=== PATIENT | male | born 1945 | race Caucasian/White ===

== ENCOUNTER 2016-09-14 03:05 | Inpatient (IN) | payer MEDICARE, OTHER ==
[~2016-09-14] VITALS: Ht 160 cm; Wt 69.9 kg
[~2016-09-14 03:05] MED LIST: AMLO5TAB4 PO; ASPI1CPM PO; ASPI325T4 PO; ATOR40TA PO; CANA100T PO; CARV25TA PO; CYCL10TA2 PO; DICY10CA53 PO; EZET10TA3 PO; FURO-69 PO; INSU100C4 SQ; INSU100V8 SQ; LIDO1ADH10 TP; LOSA100T2 PO; MAGN30TA PO; MECL12.5 PO; NITR0.4T6 SL; PANT40TA3 PO; POTA10CA PO; UBID200C4 PO
[2016-09-14] MEDS ORDERED: NITROGLYCERIN SUBLINGUAL 0.4 MG BOTTLE OF 25. SL ONE (03:27)
[2016-09-14] MEDS ORDERED: MORPHINE SULFATE 2 MG/ML DISP.SYRIN. ONE (03:28)
[2016-09-14] MEDS ORDERED: NITROGLYCERIN SUBLINGUAL 0.4 MG BOTTLE OF 25. SL PRN (03:30)
[2016-09-14] MEDS: MORPHINE SULFATE 2 MG/ML DISP.SYRIN. IV PRN ×3 (03:34→13:05)
[2016-09-14 03:36] LABS: BASO # 0.1 x10^3/uL (0.0-0.2); BASO % 1 % (0-3); EOS % 0 % (0-3); HEMATOCRIT 39.7 % (39.0-53.0); LYMPH # 0.3 x10^3/uL (1.0-4.8); LYMPH % 2 % (24-48); MEAN CORPUSCULAR HEMOGLOBIN 31 pg (25-35); MEAN CORPUSCULAR HGB CONC 33 g/dL (31-37); MEAN CORPUSCULAR VOLUME 96 fL (79-100); MONO % 3 % (0-9); NEUT % 94 % (31-73); PLATELET COUNT 265 x10^3/uL (140-400); RED BLOOD COUNT 4.14 x10^6/uL (4.30-5.70); RED CELL DISTRIBUTION WIDTH 13.2 % (11.5-14.5); WHITE BLOOD COUNT 13.6 x10^3/uL (4.0-11.0)
[2016-09-14 03:51] LABS: CALCIUM 9.6 mg/dL (8.5-10.1); CREATININE 1.5 mg/dL (0.7-1.3); GFR 46.1; POTASSIUM 4.1 mmol/L (3.5-5.1)
[2016-09-14 03:57] LABS: ALBUMIN 3.7 g/dL (3.4-5.0); DIRECT BILIRUBIN 0.1 mg/dL (0.0-0.2); TOTAL BILIRUBIN 0.4 mg/dL (0.2-1.0); TOTAL PROTEIN 7.7 g/dL (6.4-8.2)
[2016-09-14] MEDS ORDERED: ASPIRIN 81 MG TAB.CHEW PO ONE (04:00)
[2016-09-14] MEDS ORDERED: IV NORMAL SALINE 1000ML BAG 1,000 ML IV SCH (05:01)
[2016-09-14] MEDS ORDERED: ONDANSETRON PF 4 MG/2 ML VIAL. IV PRN (05:15)
[2016-09-14 05:45] VITALS: BP 144/62
--- NOTE | 2016-09-14 05:53 | RAD ---
PROCEDURE Right upper quadrant ultrasound HISTORY 71-year-old male with pancreatitis, evaluate gallbladder. TECHNIQUE Transverse and longitudinal sonography of the right upper quadrant is performed. COMPARISON None FINDINGS The pancreas is mostly obscured by overlying bowel gas. IVC appears patent. The liver demonstrates increased echogenicity. Liver measures 18.1 cm. Main portal vein demonstrates normal directional flow. The gallbladder wall thickness measures 3-4 mm. Small calcified gallstones are visualized within the fundus. Gallbladder is mildly distended. No pericholecystic fluid is seen. Patient unable to reposition to the decubitus positioning. The common bile duct measures 6 mm in diameter. The right kidney measures 10.6 x 4.7 x 4.3 cm, without evidence of hydronephrosis or definite nephrolithiasis. IMPRESSION 1. Cholelithiasis with borderline thickened gallbladder wall measuring 3-4 mm. No pericholecystic fluid is seen. Findings are equivocal for cholecystitis, correlate with clinical findings. 2. Hepatic steatosis. Electronically signed by: Nikkie Moreno (Sep 14, 2016 05:51:30)
--- NOTE | 2016-09-14 05:59 | PHYS DOC ---
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 The pain is sharp radiating to the back burning and moderate to severe. No alleviating factors present. He comes to us by paramedics today. He denies fevers chills or blood in his stools. Review of Systems Review of Systems ROS negative for fevers chills. He denies headache. Positive for chest pain and abdominal pain. All other review of systems is negative unless otherwise noted in history of present illness. Current Medications Current Medications Current Medications Medications (Trade) Dose Ordered Sig/Sylwia Start Time Stop Time Status Last Admin Dose Admin Aspirin (Children'S Aspirin) 324 mg 1X ONCE 09/14/16 04:00 09/14/16 04:01 DC Morphine Sulfate 2 mg 2 mg STK-MED ONCE 09/14/16 03:28 09/14/16 03:29 DC Nitroglycerin (Nitrostat) 0.4 mg STK-MED ONCE 09/14/16 03:27 09/14/16 03:28 DC Sodium Chloride (Iv Sodium Chloride 0.9% 1000ml Bag) 1,000 ml @ 125 mls/hr Q8H 09/14/16 05:01 09/15/16 05:00 Allergies Allergies Allergies Coded Allergies Type Severity Reaction Last Updated Verified Penicillins Allergy Intermediate 04/12/14 No fenofibrate Allergy Intermediate 04/12/14 No niacin Allergy Intermediate 04/12/14 No simvastatin Allergy Intermediate 04/12/14 No Physical Exam Physical Exam Constitutional: Well developed, well nourished, no acute distress, non-toxic appearance. HENT: Normocephalic, atraumatic, bilateral external ears normal, oropharynx moist, no oral exudates, nose normal. [] Eyes: PERRLA, EOMI, conjunctiva normal, no discharge. Neck: Normal range of motion, no tenderness, supple, no stridor. [] Cardiovascular:Heart rate regular rhythm, no murmur [] Lungs & Thorax: Bilateral breath sounds clear to auscultation Abdomen: Soft nontender abdomen without rebound tenderness or guarding present. Negative McBurneys point. Negative Patel sign. No ecchymosis present. Skin: Warm, dry, no erythema, no rash. Back: No tenderness, no CVA tenderness. [] Extremities: No tenderness, no cyanosis, no clubbing, ROM intact, no edema. Neurologic: Alert and oriented X 3, normal motor function, normal sensory function, no focal deficits noted. [] Psychologic: Affect normal, judgement normal, mood normal. Current Patient Data Vital Signs Vital Signs Date Time Temp Pulse Resp B/P Pulse Ox O2 Delivery O2 Flow Rate FiO2 09/14/16 04:40 53 16 140/55 99 09/14/16 03:34 Room Air 09/14/16 03:10 97.5 97.5 Lab Values Laboratory Tests Test 09/14/16 03:27 White Blood Count 13.6x10^3/uL (4.0-11.0) #H Red Blood Count 4.14x10^6/uL (4.30-5.70) L Hemoglobin 13.0g/dL (13.0-17.5) Hematocrit 39.7% (39.0-53.0) Mean Corpuscular Volume 96fL (79-100) Mean Corpuscular Hemoglobin 31pg (25-35) Mean Corpuscular Hemoglobin Concent 33g/dL (31-37) Red Cell Distribution Width 13.2% (11.5-14.5) Platelet Count 265x10^3/uL (140-400) Neutrophils (%) (Auto) 94% (31-73) H Lymphocytes (%) (Auto) 2% (24-48) L Monocytes (%) (Auto) 3% (0-9) Eosinophils (%) (Auto) 0% (0-3) Basophils (%) (Auto) 1% (0-3) Neutrophils # (Auto) 12.8x10^3uL (1.8-7.7) H Lymphocytes # (Auto) 0.3x10^3/uL (1.0-4.8) L Monocytes # (Auto) 0.4x10^3/uL (0.0-1.1) Eosinophils # (Auto) 0.0x10^3/uL (0.0-0.7) Basophils # (Auto) 0.1x10^3/uL (0.0-0.2) Platelet Estimate Pending Sodium Level 135mmol/L (136-145) L Potassium Level 4.1mmol/L (3.5-5.1) Chloride Level 98mmol/L (98-107) Carbon Dioxide Level 31mmol/L (21-32) Anion Gap 6 (6-14) Blood Urea Nitrogen 26mg/dL (8-26) Creatinine 1.5mg/dL (0.7-1.3) H Estimated GFR (Cockcroft-Gault) 46.1 Glucose Level 245mg/dL (70-99) H Calcium Level 9.6mg/dL (8.5-10.1) Total Bilirubin 0.4mg/dL (0.2-1.0) Direct Bilirubin 0.1mg/dL (0.0-0.2) Aspartate Amino Transferase (AST) 14U/L (15-37) L Alanine Aminotransferase (ALT) 21U/L (16-63) Alkaline Phosphatase 93U/L (46-116) Troponin I Quantitative < 0.017ng/mL (0.000-0.055) QB-Kfx-Z-Type Natriuretic Peptide 118pg/mL (0-124) Total Protein 7.7g/dL (6.4-8.2) Albumin 3.7g/dL (3.4-5.0) Lipase 1005U/L (73-393) H Laboratory Tests 09/14/16 03:27 Laboratory Tests 09/14/16 03:27 EKG EKG Patient has a paced regular rhytym with a regular rate. [place] is leftward. Intervals show prolonged QRS consistent with paced rhythm. ST segments show repolarization abnormality consistent with paced rhythm. Radiology/Procedures Radiology/Procedures Chest x-ray shows cardiomegaly. No acute or obvious infiltrate or pneumothorax present. Course & Med Decision Making Course & Med Decision Making Pertinent Labs and Imaging studies reviewed. (See chart for details) 71-year-old male presenting the emergency department with chest pain/epigastric abdominal pain. Vital signs afebrile. Normal heart rate. Saturating well with a normal blood pressure. EKG showed paced rhythm. Physical exam showed a nontender abdomen. Chest x-ray unremarkable. CBC showed mild leukocytosis. Chemistry panel showed hyperglycemia with an elevated lipase at 1000. The patient was given IV fluids and placed nothing by mouth and admitted for acute pancreatitis. Dragon Disclaimer Dragon Disclaimer This electronic medical record was generated, in whole or in part, using a voice recognition dictation system. Departure Departure Impression: Primary Impression: Pancreatitis Disposition: ADMITTED INPATIENT Admitting Physician: Jaz Mao Condition: STABLE Referrals: JAZ MAO MD (PCP) SHAWN LUCERO MD Sep 14, 2016 05:59
[2016-09-14] MEDS ORDERED: DONE10TA7 PO (06:35)
[2016-09-14] MEDS ORDERED: OMEG1CAP6 PO (06:35)
[2016-09-14] MEDS ORDERED: VITA1TAB31 PO (06:35)
--- NOTE | 2016-09-14 06:58 | ACF ---
Admission Forms Criteria PANCREATITIS Clinical Indications for Admission to Inpatient Care (Place 'X' for any and all applicable criteria): Admission is indicated for ANY ONE of the following (1)(2)(3)(4): [X]I. Acute pancreatitis[A] as indicated by 2 or more of the following: [X]a) Abdominal pain (eg, epigastric, left upper quadrant) [ ]b) Serum amylase or serum lipase greater than 3 times the upper limit of normal [ ]c) Characteristic findings from abdominal imaging (eg, pancreatic inflammation, pancreatic necrosis, peripancreatic fluid collection)[B] [ ]II. Pancreatitis (acute or chronic ) requiring inpatient care as indicated by 1 or more of the following : [ ]a) Inability to maintain oral hydration Hypoxemia [ ]b) Evidence of infection (eg, fever, peripancreatic abscess) [ ]c) Severe pain requiring acute inpatient management [ ]d) Hemodynamic instability [ ]e) Hypoxemia [ ]f) Acute renal failure [ ]g) Severe electrolyte abnormalities Extended stay beyond goal length of stay may be needed for (1)(11) [ ]a) Severe acute pancreatitis (10)(19) [ ]b) Persistent symptoms, ascites, or pleural effusion [ ]c) Abdominal compartment syndrome (10) [ ]d) Late complications [ ]e) Acute renal failure (27) [ ]f) Gallstones in gallbladder The original [employer] content created by [employer] has been revised. The portions of the content which have been revised are identified through the use of italic text or in bold,and [facility] has neither reviewed nor approved the modified material.All other unmodified content is copyright [employer]. Please see references footnoted in the original [employer] edition 2016 Admission Criteria Met?: Yes BARB MACHADO Sep 14, 2016 06:58
[2016-09-14 07:32] VITALS: BP 140/47
[2016-09-14 07:58] LABS: PLT ESTIMATE ADEQUATE (ADEQUATE)
--- NOTE | 2016-09-14 08:17 | RAD ---
EXAM: Chest, single view. HISTORY: Chest pain. COMPARISON: 09/07/2016. FINDINGS: A frontal view of the chest is obtained. There is no infiltrate, effusion or pneumothorax. The heart is normal in size. There are findings consistent with CABG. There is a cardiac pacemaker defibrillator in expected position. There are right apical surgical clips. IMPRESSION: No acute pulmonary finding.
[2016-09-14] MEDS ORDERED: INSU100I17 SQ (08:51)
[2016-09-14] MEDS ORDERED: CANA100T PO (08:51)
[2016-09-14] MEDS ORDERED: INSU100I13 SQ (08:51)
[2016-09-14] MEDS ORDERED: ATOR40TA59 PO (08:51)
[2016-09-14] MEDS ORDERED: DEXTROSE 50% 25 GM / 50ML DISP.SYRIN. IV PRN (09:00)
--- NOTE | 2016-09-14 09:10 | EKG ---
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
--- NOTE | 2016-09-14 09:21 | PDOC ---
PROGRESS NOTES Subjective Subjective Patient reports some diffuse abdominal pain persists. Not as severe as when he came to the ER. Objective Objective Vital Signs Date Time Temp Pulse Resp B/P Pulse Ox O2 Delivery O2 Flow Rate FiO2 09/14/16 08:35 16 Room Air 09/14/16 07:32 98.2 64 140/47 95 98.2 Physical Exam Abdomen: Normal bowel sounds, Soft, Other (mild diffuse TTP without guarding or rebound) Heart: Regular rate Extremities: No edema (on L LE) General: Alert, Oriented X3 (somewhat forgetful), No acute distress Lungs: Clear to auscultation Assessment Assessment Problems Medical Problems: (1) Pancreatitis Status: Acute Plan Plan of Care 1. Acute cholecystitis with pancreatitis - stable, afebrile. WBC's mildly elevated and Lipase elevated. Will continue NPO with IVF, consult General Surgery. Start Rocephin. 2. DM2 - SS insulin, resume home insulins when no longer NPO. 3. CHF with hx CAD - last Echo had EF of 55% with mild diastolic dysfunction. Appears stable at present, Troponin is normal. 4. HTN - continue home meds. 5. memory loss - continue home meds and supportive care. Comment Review of Relevant I have reviewed the following items harman (where applicable) has been applied. Labs Laboratory Tests Test 09/14/16 03:27 09/14/16 07:28 White Blood Count 13.6x10^3/uL (4.0-11.0) Red Blood Count 4.14x10^6/uL (4.30-5.70) Hemoglobin 13.0g/dL (13.0-17.5) Hematocrit 39.7% (39.0-53.0) Mean Corpuscular Volume 96fL (79-100) Mean Corpuscular Hemoglobin 31pg (25-35) Mean Corpuscular Hemoglobin Concent 33g/dL (31-37) Red Cell Distribution Width 13.2% (11.5-14.5) Platelet Count 265x10^3/uL (140-400) Neutrophils (%) (Auto) 94% (31-73) Lymphocytes (%) (Auto) 2% (24-48) Monocytes (%) (Auto) 3% (0-9) Eosinophils (%) (Auto) 0% (0-3) Basophils (%) (Auto) 1% (0-3) Neutrophils # (Auto) 12.8x10^3uL (1.8-7.7) Lymphocytes # (Auto) 0.3x10^3/uL (1.0-4.8) Monocytes # (Auto) 0.4x10^3/uL (0.0-1.1) Eosinophils # (Auto) 0.0x10^3/uL (0.0-0.7) Basophils # (Auto) 0.1x10^3/uL (0.0-0.2) Segmented Neutrophils % 81% (35-66) Band Neutrophils % 11% (0-9) Lymphocytes % 6% (24-48) Monocytes % 2% (0-10) Platelet Estimate Adequate (ADEQUATE) Sodium Level 135mmol/L (136-145) Potassium Level 4.1mmol/L (3.5-5.1) Chloride Level 98mmol/L (98-107) Carbon Dioxide Level 31mmol/L (21-32) Anion Gap 6 (6-14) Blood Urea Nitrogen 26mg/dL (8-26) Creatinine 1.5mg/dL (0.7-1.3) Estimated GFR (Cockcroft-Gault) 46.1 Glucose Level 245mg/dL (70-99) Calcium Level 9.6mg/dL (8.5-10.1) Total Bilirubin 0.4mg/dL (0.2-1.0) Direct Bilirubin 0.1mg/dL (0.0-0.2) Aspartate Amino Transf (AST/SGOT) 14U/L (15-37) Alanine Aminotransferase (ALT/SGPT) 21U/L (16-63) Alkaline Phosphatase 93U/L (46-116) Troponin I Quantitative < 0.017ng/mL (0.000-0.055) CT-Rrj-Q-Type Natriuretic Peptide 118pg/mL (0-124) Total Protein 7.7g/dL (6.4-8.2) Albumin 3.7g/dL (3.4-5.0) Lipase 1005U/L (73-393) Glucose (Fingerstick) 264mg/dL (70-99) Laboratory Tests Test 09/14/16 03:27 09/14/16 07:28 White Blood Count 13.6x10^3/uL (4.0-11.0) Red Blood Count 4.14x10^6/uL (4.30-5.70) Hemoglobin 13.0g/dL (13.0-17.5) Hematocrit 39.7% (39.0-53.0) Mean Corpuscular Volume 96fL (79-100) Mean Corpuscular Hemoglobin 31pg (25-35) Mean Corpuscular Hemoglobin Concent 33g/dL (31-37) Red Cell Distribution Width 13.2% (11.5-14.5) Platelet Count 265x10^3/uL (140-400) Neutrophils (%) (Auto) 94% (31-73) Lymphocytes (%) (Auto) 2% (24-48) Monocytes (%) (Auto) 3% (0-9) Eosinophils (%) (Auto) 0% (0-3) Basophils (%) (Auto) 1% (0-3) Neutrophils # (Auto) 12.8x10^3uL (1.8-7.7) Lymphocytes # (Auto) 0.3x10^3/uL (1.0-4.8) Monocytes # (Auto) 0.4x10^3/uL (0.0-1.1) Eosinophils # (Auto) 0.0x10^3/uL (0.0-0.7) Basophils # (Auto) 0.1x10^3/uL (0.0-0.2) Segmented Neutrophils % 81% (35-66) Band Neutrophils % 11% (0-9) Lymphocytes % 6% (24-48) Monocytes % 2% (0-10) Platelet Estimate Adequate (ADEQUATE) Sodium Level 135mmol/L (136-145) Potassium Level 4.1mmol/L (3.5-5.1) Chloride Level 98mmol/L (98-107) Carbon Dioxide Level 31mmol/L (21-32) Anion Gap 6 (6-14) Blood Urea Nitrogen 26mg/dL (8-26) Creatinine 1.5mg/dL (0.7-1.3) Estimated GFR (Cockcroft-Gault) 46.1 Glucose Level 245mg/dL (70-99) Calcium Level 9.6mg/dL (8.5-10.1) Total Bilirubin 0.4mg/dL (0.2-1.0) Direct Bilirubin 0.1mg/dL (0.0-0.2) Aspartate Amino Transf (AST/SGOT) 14U/L (15-37) Alanine Aminotransferase (ALT/SGPT) 21U/L (16-63) Alkaline Phosphatase 93U/L (46-116) Troponin I Quantitative < 0.017ng/mL (0.000-0.055) GX-Dkk-U-Type Natriuretic Peptide 118pg/mL (0-124) Total Protein 7.7g/dL (6.4-8.2) Albumin 3.7g/dL (3.4-5.0) Lipase 1005U/L (73-393) Glucose (Fingerstick) 264mg/dL (70-99) Medications Current Medications Aspirin (Children'S Aspirin) 324 mg 1X ONCE PO ; Start 09/14/16 at 04:00; Stop 09/14/16 at 04:01; Status DC Nitroglycerin (Nitrostat) 0.4 mg PRN Q5MIN PRN SL CHEST PAIN Last administered on 09/14/16 03:33; Start 09/14/16 at 03:30 Morphine Sulfate 2 mg PRN Q1HR PRN IV SEVERE PAIN Last administered on 08:35; Start 09/14/16 at 03:30; Stop 09/14/16 at 09:00; Status DC Nitroglycerin (Nitrostat) 0.4 mg STK-MED ONCE SL ; Start 09/14/16 at 03:27; Stop 09/14/16 at 03:28; Status DC Morphine Sulfate 2 mg STK-MED ONCE .ROUTE ; Start 09/14/16 at 03:28; Stop at 03:29; Status DC Ondansetron HCl (Zofran) 4 mg PRN Q8HRS PRN IV NAUSEA/VOMITING; Start 09/14/16 at 05:15; Stop 09/15/16 at 05:14 Morphine Sulfate 2 mg 2 mg PRN Q2HR PRN IV SEVERE PAIN; Start 09/14/16 at 05:15 ; Stop 09/15/16 at 05:14 Sodium Chloride (Iv Sodium Chloride 0.9% 1000ml Bag) 1,000 ml @ 125 mls/hr Q8H IV Last administered on 1/11/17at 05:01; Start 09/14/16 at 05:01; Stop at 09:15; Status DC Insulin Aspart (Novolog) 0-9 UNITS TIDWMEALS SQ ; Start 09/14/16 at 12:00 Dextrose 12.5 gm 12.5 gm PRN Q15MIN PRN IV SEE COMMENTS; Start 09/14/16 at 09: 00 Ceftriaxone Sodium 1 gm/ Sodium Chloride 50 ml @ 100 mls/hr Q24H IV ; Start 07/21 at 09:15; Status UNV Potassium Chloride/Sodium Chloride (KCl 20 Meq-0.45% Nacl) 1,000 ml @ 75 mls/ hr [id number] IV ; Start 09/14/16 at 09:15; Status UNV Active Scripts Active Invokana (Canagliflozin) 100 Mg Tablet 100 Mg PO DAILY 30 Days Atorvastatin Calcium 40 Mg Tablet 1 Tab PO DAILY Novolog Flexpen (Insulin Aspart) 100 Unit/1 Ml Insuln.pen 25 Unit SQ TIDAC Lantus Solostar (Insulin Glargine,Hum.rec.anlog) 100 Unit/1 Ml Insuln.pen 60 Unit SQ BID Bentyl (Dicyclomine Hcl) 10 Mg Capsule 10 Mg PO QID PRN Reported D3 + K2 Dots 1,000 Units Tab (Vitamin D3/Vitamin K2) 1 Each Tab.rapdis 1 Each PO DAILY Fish Oil 1,000 Mg Capsule ([place]-3 Fatty Acids/Fish Oil) 1 Each Capsule 1 Each PO BID Donepezil Hcl 10 Mg Tablet 1 Tab PO DAILY Coreg (Carvedilol) 25 Mg Tablet 1 Tab PO BID Aggrenox 25 Mg-200 Mg Capsule (Aspirin/Dipyridamole) 1 Each Cpmp.12hr 1 Cap PO BID Cozaar (Losartan Potassium) 100 Mg Tablet 1 Tab PO DAILY Lasix (Furosemide) 20 Mg Tablet 1 Tab PO DAILY Zetia (Ezetimibe) 10 Mg Tablet 1 Tab PO DAILY Norvasc (Amlodipine Besylate) 5 Mg Tablet 1 Tab PO DAILY Potassium Chloride 10 Meq Capsule.er 1 Cap PO DAILY Magnesium Gluconate 30 Mg Tablet 250 Mg PO Co Q-10 (Ubidecarenone) 200 Mg Capsule 200 Mg PO DAILY Vitals/I & O Vital Sign - Last 24 Hours 09/14/16 09/14/16 09/14/1617 03:10 03:30 03:33 03:34 Temp 97.5 97.5 Pulse 52 55 50 Resp 16 16 16 B/P 110/56 122/55 122/55 Pulse Ox 100 100 100 O2 Delivery Room Air Room Air 09/14/16 09/14/16 09/14/16 09/14/16 04:00 04:00 04:04 04:40 Pulse 50 56 53 Resp 16 16 16 B/P 112/49 110/46 140/55 Pulse Ox 97 97 96 99 O2 Delivery Room Air 09/14/16 09/14/16 09/14/16 09/14/16 05:45 07:32 07:40 08:35 Temp 97.8 98.2 97.8 98.2 Pulse 64 64 Resp 18 18 16 B/P 144/62 140/47 Pulse Ox 96 95 O2 Delivery Room Air Room Air Room Air Room Air FAIZAN RAY MD Sep 14, 2016 09:21
[2016-09-14] MEDS ORDERED: DICYCLOMINE HCL 10 MG CAPSULE PO PRN (09:30)
--- NOTE | 2016-09-14 10:12 | HP ---
ADMIT DATE: 09/14/2016 CHIEF COMPLAINT: Abdominal pain. HISTORY OF PRESENT ILLNESS: The patient is a 71-year-old male who presented to the Emergency Room with the above complaint. He had been experiencing intermittent lower abdominal pain for about 1 week. He was seen in the Emergency Room several days prior with a similar complaint. CAT scan of the abdomen and pelvis was done at that time, which showed some cholelithiasis and constipation, but was otherwise unremarkable and he was discharged home. He saw Dr. Vallejo in the office on 09/12/2016. His exam then was unremarkable and he was advised treatment for constipation. The patient returned to the Emergency Room on the night of admission reporting that the pain had worsened. Lab then showed a lipase elevated at 1000. An ultrasound was ordered and the patient was admitted for further treatment. PAST MEDICAL HISTORY: Diabetes mellitus type 2, insulin dependent, hypertension, coronary artery disease, CHF with diastolic dysfunction, peripheral vascular disease, memory loss, and hyperlipidemia. PAST SURGICAL HISTORY: Appendectomy, coronary artery bypass graft, right below the knee amputation, pacemaker/ICD placement in 2009. ALLERGIES: The patient is allergic to penicillins, fenofibrate, niacin and simvastatin. HOME MEDICATIONS: Lantus 60 units b.i.d., Zetia 10 mg daily, NovoLog 40 units t.i.d. a.c., Donepezil 10 mg daily, atorvastatin 40 mg daily, Coreg 25 mg b.i.d., Aggrenox 25/200 one b.i.d., Lasix 20 mg daily, amlodipine 5 mg daily, losartan 100 mg daily, potassium 10 mEq daily, Invokana 100 mg daily. FAMILY HISTORY: Noncontributory. SOCIAL HISTORY: The patient is . He lives with his brother. He has a long smoking history, but quit smoking in 1985. He does not drink alcohol to excess. REVIEW OF SYSTEMS: This is somewhat limited due to patient's memory loss. He denies fever or chills. He has had some chest or upper abdominal pain as well as his lower abdominal pain. He denies cough or shortness of air. He had some emesis several days ago, but none since. He has not had a bowel movement in 2 days and denies diarrhea. PHYSICAL EXAMINATION: GENERAL: The patient is alert and oriented x 3, but somewhat forgetful, resting comfortably in bed in no acute distress. HEENT: PERRL, EOMI, sclerae clear. Oropharynx: Mucous membranes moist. NECK: Supple, without lymphadenopathy. CHEST: Clear to auscultation. CARDIOVASCULAR: Regular rhythm without murmur. ABDOMEN: Soft, mild diffuse tenderness to palpation without guarding or rebound. Normoactive bowel sounds are present. There is no right upper quadrant tenderness to palpation. EXTREMITIES: The right lower extremity shows [id number] amputation, left lower extremity is without edema. ASSESSMENT AND PLAN: 1. Acute cholecystitis with pancreatitis. Abdominal ultrasound shows cholelithiasis with borderline gallbladder wall thickening. The patient is stable and afebrile. His white blood cell count is mildly elevated at over 13 and initial lipase was over 1000. We will continue the patient n.p.o. with IV fluid. We have consulted General Surgery to help with further treatment. He will be started on Rocephin for broad antibacterial coverage. 2. Diabetes mellitus type 2, use sliding scale insulin, resume home insulins when he is no longer n.p.o. 3. Congestive heart failure with history of coronary artery disease. The patient's last echocardiogram was 03/2016. It showed an ejection fraction of 55 % with mild diastolic dysfunction. This appears stable at this time. Troponin is normal and we will continue his home medications. 4. Hypertension. Hold home medications for today while the patient is n.p.o. Blood pressure is presently stable without medication. 5. Memory loss. Continue home medications and supportive care. FAIZAN RAY MD DR: DELFINA/brandyn JOB#: [id number] / [id number] CHRISTOPHER
[2016-09-14 10:38] VITALS: BP 124/52
[2016-09-14] MEDS: CEFTRIAXONE SODIUM 1 GM in IV NORMAL SALINE 50ML 50 ML IV SCH (12:48)
[2016-09-14] MEDS: LOSARTAN POTASSIUM 50 MG TABLET. PO SCH (12:53)
[2016-09-14] MEDS: FUROSEMIDE 20 MG TABLET PO SCH (12:53)
[2016-09-14] MEDS: DONEPEZIL HCL 10 MG TABLET. PO SCH (12:53)
[2016-09-14] MEDS: CARVEDILOL 12.5 MG TABLET PO SCH ×2 (12:53→18:15)
[2016-09-14] MEDS: AMLODIPINE BESYLATE 5 MG TABLET PO SCH (12:53)
[2016-09-14] MEDS: POTASSIUM CL 20MEQ-0.45% NACL 1,000 ML IV SCH ×2 (12:54→22:42)
[2016-09-14] MEDS: INSULIN ASPART 300 UNITS/3 ML INSULN.PEN SQ SCH ×2 (13:02→18:19)
[2016-09-14 14:36] VITALS: BP 140/58
[2016-09-14 19:05] VITALS: BP 125/56
--- NOTE | 2016-09-14 19:47 | PDOC ---
SURGICAL PROGRESS NOTE Subjective 71 yo M with gallstone pancreatitis agree with bowel rest and supportive care plan lap aurora with grams, once pancreatitis improved tentatively planned for 09/16 at 1300 R/B/A d/w pt and pt's family Thanks for consult! [id number] Vital Signs Vital Signs Date Time Temp Pulse Resp B/P Pulse Ox O2 Delivery O2 Flow Rate FiO2 09/14/16 18:15 76 140/58 09/14/16 14:36 100.2 18 91 Room Air 100.2 Labs Laboratory Tests Test 09/14/16 03:27 09/14/16 07:28 09/14/16 10:49 09/14/16 16:35 White Blood Count 13.6x10^3/uL (4.0-11.0) Red Blood Count 4.14x10^6/uL (4.30-5.70) Hemoglobin 13.0g/dL (13.0-17.5) Hematocrit 39.7% (39.0-53.0) Mean Corpuscular Volume 96fL (79-100) Mean Corpuscular Hemoglobin 31pg (25-35) Mean Corpuscular Hemoglobin Concent 33g/dL (31-37) Red Cell Distribution Width 13.2% (11.5-14.5) Platelet Count 265x10^3/uL (140-400) Neutrophils (%) (Auto) 94% (31-73) Lymphocytes (%) (Auto) 2% (24-48) Monocytes (%) (Auto) 3% (0-9) Eosinophils (%) (Auto) 0% (0-3) Basophils (%) (Auto) 1% (0-3) Neutrophils # (Auto) 12.8x10^3uL (1.8-7.7) Lymphocytes # (Auto) 0.3x10^3/uL (1.0-4.8) Monocytes # (Auto) 0.4x10^3/uL (0.0-1.1) Eosinophils # (Auto) 0.0x10^3/uL (0.0-0.7) Basophils # (Auto) 0.1x10^3/uL (0.0-0.2) Segmented Neutrophils % 81% (35-66) Band Neutrophils % 11% (0-9) Lymphocytes % 6% (24-48) Monocytes % 2% (0-10) Platelet Estimate Adequate (ADEQUATE) Sodium Level 135mmol/L (136-145) Potassium Level 4.1mmol/L (3.5-5.1) Chloride Level 98mmol/L (98-107) Carbon Dioxide Level 31mmol/L (21-32) Anion Gap 6 (6-14) Blood Urea Nitrogen 26mg/dL (8-26) Creatinine 1.5mg/dL (0.7-1.3) Estimated GFR (Cockcroft-Gault) 46.1 Glucose Level 245mg/dL (70-99) Calcium Level 9.6mg/dL (8.5-10.1) Total Bilirubin 0.4mg/dL (0.2-1.0) Direct Bilirubin 0.1mg/dL (0.0-0.2) Aspartate Amino Transf (AST/SGOT) 14U/L (15-37) Alanine Aminotransferase (ALT/SGPT) 21U/L (16-63) Alkaline Phosphatase 93U/L (46-116) Troponin I Quantitative < 0.017ng/mL (0.000-0.055) VH-Dkh-B-Type Natriuretic Peptide 118pg/mL (0-124) Total Protein 7.7g/dL (6.4-8.2) Albumin 3.7g/dL (3.4-5.0) Lipase 1005U/L (73-393) Glucose (Fingerstick) 264mg/dL (70-99) 258mg/dL (70-99) 206mg/dL (70-99) Laboratory Tests Test 09/14/16 03:27 09/14/16 07:28 09/14/16 10:49 09/14/16 16:35 White Blood Count 13.6x10^3/uL (4.0-11.0) Red Blood Count 4.14x10^6/uL (4.30-5.70) Hemoglobin 13.0g/dL (13.0-17.5) Hematocrit 39.7% (39.0-53.0) Mean Corpuscular Volume 96fL (79-100) Mean Corpuscular Hemoglobin 31pg (25-35) Mean Corpuscular Hemoglobin Concent 33g/dL (31-37) Red Cell Distribution Width 13.2% (11.5-14.5) Platelet Count 265x10^3/uL (140-400) Neutrophils (%) (Auto) 94% (31-73) Lymphocytes (%) (Auto) 2% (24-48) Monocytes (%) (Auto) 3% (0-9) Eosinophils (%) (Auto) 0% (0-3) Basophils (%) (Auto) 1% (0-3) Neutrophils # (Auto) 12.8x10^3uL (1.8-7.7) Lymphocytes # (Auto) 0.3x10^3/uL (1.0-4.8) Monocytes # (Auto) 0.4x10^3/uL (0.0-1.1) Eosinophils # (Auto) 0.0x10^3/uL (0.0-0.7) Basophils # (Auto) 0.1x10^3/uL (0.0-0.2) Segmented Neutrophils % 81% (35-66) Band Neutrophils % 11% (0-9) Lymphocytes % 6% (24-48) Monocytes % 2% (0-10) Platelet Estimate Adequate (ADEQUATE) Sodium Level 135mmol/L (136-145) Potassium Level 4.1mmol/L (3.5-5.1) Chloride Level 98mmol/L (98-107) Carbon Dioxide Level 31mmol/L (21-32) Anion Gap 6 (6-14) Blood Urea Nitrogen 26mg/dL (8-26) Creatinine 1.5mg/dL (0.7-1.3) Estimated GFR (Cockcroft-Gault) 46.1 Glucose Level 245mg/dL (70-99) Calcium Level 9.6mg/dL (8.5-10.1) Total Bilirubin 0.4mg/dL (0.2-1.0) Direct Bilirubin 0.1mg/dL (0.0-0.2) Aspartate Amino Transf (AST/SGOT) 14U/L (15-37) Alanine Aminotransferase (ALT/SGPT) 21U/L (16-63) Alkaline Phosphatase 93U/L (46-116) Troponin I Quantitative < 0.017ng/mL (0.000-0.055) DU-Bfw-Z-Type Natriuretic Peptide 118pg/mL (0-124) Total Protein 7.7g/dL (6.4-8.2) Albumin 3.7g/dL (3.4-5.0) Lipase 1005U/L (73-393) Glucose (Fingerstick) 264mg/dL (70-99) 258mg/dL (70-99) 206mg/dL (70-99) Problem List Problems Medical Problems: (1) Pancreatitis Status: Acute Problems: STEFAN TAYLOR MD Sep 14, 2016 19:47
[2016-09-14 23:05] VITALS: BP 124/53
[2016-09-15 03:05] VITALS: BP 127/50
[2016-09-15] MEDS: MORPHINE SULFATE 2 MG/ML DISP.SYRIN. IV PRN (04:04)
[2016-09-15 04:56] LABS: BASO % 0 % (0-3); EOS % 0 % (0-3); HEMATOCRIT 35.1 % (39.0-53.0); HEMOGLOBIN 11.6 g/dL (13.0-17.5); LYMPH # 0.3 x10^3/uL (1.0-4.8); LYMPH % 5 % (24-48); MEAN CORPUSCULAR HEMOGLOBIN 32 pg (25-35); MEAN CORPUSCULAR HGB CONC 33 g/dL (31-37); MEAN CORPUSCULAR VOLUME 96 fL (79-100); MONO % 5 % (0-9); NEUT % 90 % (31-73); PLATELET COUNT 188 x10^3/uL (140-400); RED BLOOD COUNT 3.66 x10^6/uL (4.30-5.70); RED CELL DISTRIBUTION WIDTH 13.7 % (11.5-14.5); WHITE BLOOD COUNT 5.5 x10^3/uL (4.0-11.0)
[2016-09-15 05:36] LABS: ALBUMIN 2.7 g/dL (3.4-5.0); ALBUMIN/GLOBULIN RATIO 0.8 (1.0-1.7); CALCIUM 7.8 mg/dL (8.5-10.1); CREATININE 1.3 mg/dL (0.7-1.3); GFR 54.4; POTASSIUM 3.9 mmol/L (3.5-5.1); TOTAL BILIRUBIN 0.3 mg/dL (0.2-1.0)
[2016-09-15 07:00] VITALS: BP 117/48
[2016-09-15] MEDS ORDERED: CEFAZOLIN 2GM PREMIX 50 ML IV ONE (08:45)
[2016-09-15] MEDS ORDERED: NON FORMULARY ITEM (Canagliflozin (Invokana) 100 MG) PO SCH (09:00)
--- NOTE | 2016-09-15 09:03 | PDOC ---
PROGRESS NOTES Subjective Subjective Patient without complaint, denies abdominal pain or nausea. Objective Objective Vital Signs Date Time Temp Pulse Resp B/P Pulse Ox O2 Delivery O2 Flow Rate FiO2 09/15/16 07:00 98.3 66 18 117/48 93 Room Air 98.3 Intake and Output 09/15/16 07:00 Intake Total 250 ml Output Total 950 ml Balance -700 ml Intake Oral 250 ml Output Urine Total 950 ml Physical Exam Abdomen: Normal bowel sounds, Soft, No tenderness Heart: Regular rate Extremities: No edema General: Alert, Oriented X3, No acute distress Lungs: Clear to auscultation Assessment Assessment Problems Medical Problems: (1) Pancreatitis Status: Acute Plan Plan of Care 1. Acute cholecystitis with pancreatitis - stable. WBC's now WNL, continues with intermittent fever. Continue Rocephin, IVF and clears. Dr Winter plans lap aurora in AM. 2. HTN - controlled, continue home meds. 3. DM2 - mild hyperglycemia. Continue SS insulin, add low dose of Levemir this evening. 4. CHF with mild diastolic dysfunction - stable, continue his usual Lasix. 5. memory loss - stable, continue supportive care. Comment Review of Relevant I have reviewed the following items harman (where applicable) has been applied. Labs Laboratory Tests Test 09/14/16 03:27 09/14/16 07:28 09/14/16 10:49 09/14/16 16:35 White Blood Count 13.6x10^3/uL (4.0-11.0) Red Blood Count 4.14x10^6/uL (4.30-5.70) Hemoglobin 13.0g/dL (13.0-17.5) Hematocrit 39.7% (39.0-53.0) Mean Corpuscular Volume 96fL (79-100) Mean Corpuscular Hemoglobin 31pg (25-35) Mean Corpuscular Hemoglobin Concent 33g/dL (31-37) Red Cell Distribution Width 13.2% (11.5-14.5) Platelet Count 265x10^3/uL (140-400) Neutrophils (%) (Auto) 94% (31-73) Lymphocytes (%) (Auto) 2% (24-48) Monocytes (%) (Auto) 3% (0-9) Eosinophils (%) (Auto) 0% (0-3) Basophils (%) (Auto) 1% (0-3) Neutrophils # (Auto) 12.8x10^3uL (1.8-7.7) Lymphocytes # (Auto) 0.3x10^3/uL (1.0-4.8) Monocytes # (Auto) 0.4x10^3/uL (0.0-1.1) Eosinophils # (Auto) 0.0x10^3/uL (0.0-0.7) Basophils # (Auto) 0.1x10^3/uL (0.0-0.2) Segmented Neutrophils % 81% (35-66) Band Neutrophils % 11% (0-9) Lymphocytes % 6% (24-48) Monocytes % 2% (0-10) Platelet Estimate Adequate (ADEQUATE) Sodium Level 135mmol/L (136-145) Potassium Level 4.1mmol/L (3.5-5.1) Chloride Level 98mmol/L (98-107) Carbon Dioxide Level 31mmol/L (21-32) Anion Gap 6 (6-14) Blood Urea Nitrogen 26mg/dL (8-26) Creatinine 1.5mg/dL (0.7-1.3) Estimated GFR (Cockcroft-Gault) 46.1 Glucose Level 245mg/dL (70-99) Calcium Level 9.6mg/dL (8.5-10.1) Total Bilirubin 0.4mg/dL (0.2-1.0) Direct Bilirubin 0.1mg/dL (0.0-0.2) Aspartate Amino Transf (AST/SGOT) 14U/L (15-37) Alanine Aminotransferase (ALT/SGPT) 21U/L (16-63) Alkaline Phosphatase 93U/L (46-116) Troponin I Quantitative < 0.017ng/mL (0.000-0.055) XP-Tvg-J-Type Natriuretic Peptide 118pg/mL (0-124) Total Protein 7.7g/dL (6.4-8.2) Albumin 3.7g/dL (3.4-5.0) Lipase 1005U/L (73-393) Glucose (Fingerstick) 264mg/dL (70-99) 258mg/dL (70-99) 206mg/dL (70-99) Test 09/14/16 20:59 09/15/16 04:30 09/15/16 07:05 Glucose (Fingerstick) 274mg/dL (70-99) 285mg/dL (70-99) White Blood Count 5.5x10^3/uL (4.0-11.0) Red Blood Count 3.66x10^6/uL (4.30-5.70) Hemoglobin 11.6g/dL (13.0-17.5) Hematocrit 35.1% (39.0-53.0) Mean Corpuscular Volume 96fL (79-100) Mean Corpuscular Hemoglobin 32pg (25-35) Mean Corpuscular Hemoglobin Concent 33g/dL (31-37) Red Cell Distribution Width 13.7% (11.5-14.5) Platelet Count 188x10^3/uL (140-400) Neutrophils (%) (Auto) 90% (31-73) Lymphocytes (%) (Auto) 5% (24-48) Monocytes (%) (Auto) 5% (0-9) Eosinophils (%) (Auto) 0% (0-3) Basophils (%) (Auto) 0% (0-3) Neutrophils # (Auto) 4.9x10^3uL (1.8-7.7) Lymphocytes # (Auto) 0.3x10^3/uL (1.0-4.8) Monocytes # (Auto) 0.3x10^3/uL (0.0-1.1) Eosinophils # (Auto) 0.0x10^3/uL (0.0-0.7) Basophils # (Auto) 0.0x10^3/uL (0.0-0.2) Sodium Level 135mmol/L (136-145) Potassium Level 3.9mmol/L (3.5-5.1) Chloride Level 102mmol/L (98-107) Carbon Dioxide Level 23mmol/L (21-32) Anion Gap 10 (6-14) Blood Urea Nitrogen 26mg/dL (8-26) Creatinine 1.3mg/dL (0.7-1.3) Estimated GFR (Cockcroft-Gault) 54.4 BUN/Creatinine Ratio 20 (6-20) Glucose Level 284mg/dL (70-99) Calcium Level 7.8mg/dL (8.5-10.1) Total Bilirubin 0.3mg/dL (0.2-1.0) Aspartate Amino Transf (AST/SGOT) 13U/L (15-37) Alanine Aminotransferase (ALT/SGPT) 13U/L (16-63) Alkaline Phosphatase 52U/L (46-116) Total Protein 6.0g/dL (6.4-8.2) Albumin 2.7g/dL (3.4-5.0) Albumin/Globulin Ratio 0.8 (1.0-1.7) Lipase 63U/L (73-393) Laboratory Tests Test 09/14/16 10:49 09/14/16 16:35 09/14/16 20:59 09/15/16 04:30 Glucose (Fingerstick) 258mg/dL (70-99) 206mg/dL (70-99) 274mg/dL (70-99) White Blood Count 5.5x10^3/uL (4.0-11.0) Red Blood Count 3.66x10^6/uL (4.30-5.70) Hemoglobin 11.6g/dL (13.0-17.5) Hematocrit 35.1% (39.0-53.0) Mean Corpuscular Volume 96fL (79-100) Mean Corpuscular Hemoglobin 32pg (25-35) Mean Corpuscular Hemoglobin Concent 33g/dL (31-37) Red Cell Distribution Width 13.7% (11.5-14.5) Platelet Count 188x10^3/uL (140-400) Neutrophils (%) (Auto) 90% (31-73) Lymphocytes (%) (Auto) 5% (24-48) Monocytes (%) (Auto) 5% (0-9) Eosinophils (%) (Auto) 0% (0-3) Basophils (%) (Auto) 0% (0-3) Neutrophils # (Auto) 4.9x10^3uL (1.8-7.7) Lymphocytes # (Auto) 0.3x10^3/uL (1.0-4.8) Monocytes # (Auto) 0.3x10^3/uL (0.0-1.1) Eosinophils # (Auto) 0.0x10^3/uL (0.0-0.7) Basophils # (Auto) 0.0x10^3/uL (0.0-0.2) Sodium Level 135mmol/L (136-145) Potassium Level 3.9mmol/L (3.5-5.1) Chloride Level 102mmol/L (98-107) Carbon Dioxide Level 23mmol/L (21-32) Anion Gap 10 (6-14) Blood Urea Nitrogen 26mg/dL (8-26) Creatinine 1.3mg/dL (0.7-1.3) Estimated GFR (Cockcroft-Gault) 54.4 BUN/Creatinine Ratio 20 (6-20) Glucose Level 284mg/dL (70-99) Calcium Level 7.8mg/dL (8.5-10.1) Total Bilirubin 0.3mg/dL (0.2-1.0) Aspartate Amino Transf (AST/SGOT) 13U/L (15-37) Alanine Aminotransferase (ALT/SGPT) 13U/L (16-63) Alkaline Phosphatase 52U/L (46-116) Total Protein 6.0g/dL (6.4-8.2) Albumin 2.7g/dL (3.4-5.0) Albumin/Globulin Ratio 0.8 (1.0-1.7) Lipase 63U/L (73-393) Test 09/15/16 07:05 Glucose (Fingerstick) 285mg/dL (70-99) Medications Current Medications Aspirin (Children'S Aspirin) 324 mg 1X ONCE PO ; Start 09/14/16 at 04:00; Stop 09/14/16 at 04:01; Status DC Nitroglycerin (Nitrostat) 0.4 mg PRN Q5MIN PRN SL CHEST PAIN Last administered on 09/14/16 03:33; Start 09/14/16 at 03:30 Morphine Sulfate 2 mg PRN Q1HR PRN IV SEVERE PAIN Last administered on 08:35; Start 09/14/16 at 03:30; Stop 09/14/16 at 09:00; Status DC Nitroglycerin (Nitrostat) 0.4 mg STK-MED ONCE SL ; Start 09/14/16 at 03:27; Stop 09/14/16 at 03:28; Status DC Morphine Sulfate 2 mg STK-MED ONCE .ROUTE ; Start 09/14/16 at 03:28; Stop at 03:29; Status DC Ondansetron HCl (Zofran) 4 mg PRN Q8HRS PRN IV NAUSEA/VOMITING; Start 09/14/16 at 05:15; Stop 09/15/16 at 05:14; Status DC Morphine Sulfate 2 mg 2 mg PRN Q2HR PRN IV SEVERE PAIN Last administered on 04:04; Start 09/14/16 at 05:15; Stop 09/15/16 at 05:14; Status DC Sodium Chloride (Iv Sodium Chloride 0.9% 1000ml Bag) 1,000 ml @ 125 mls/hr Q8H IV Last administered on 09/14/16 05:01; Start 09/14/16 at 05:01; Stop at 09:15; Status DC Insulin Aspart (Novolog) 0-9 UNITS TIDWMEALS SQ Last administered on 09/14/16 18:19; Start 09/14/16 at 12:00 Dextrose 12.5 gm 12.5 gm PRN Q15MIN PRN IV SEE COMMENTS; Start 09/14/16 at 09: 00 Ceftriaxone Sodium 1 gm/ Sodium Chloride 50 ml @ 100 mls/hr Q24H IV Last administered on 09/14/16 12:48; Start 09/14/16 at 10:00 Potassium Chloride/Sodium Chloride (KCl 20 Meq-0.45% Nacl) 1,000 ml @ 75 mls/ hr [id number] IV Last administered on 09/14/16 22:42; Start 09/14/16 at 09:15 Amlodipine Besylate (Norvasc) 5 mg DAILY PO Last administered on 09/14/16 12: 53; Start 09/14/16 at 10:00 Dicyclomine HCl (Bentyl) 10 mg PRN QID PRN PO ABDOMINAL PAIN; Start 09/14/16 at 09:30 Donepezil HCl (Aricept) 10 mg DAILY PO Last administered on 09/14/16 12:53; Start 09/14/16 at 10:00 Furosemide (Lasix) 20 mg DAILY PO Last administered on 09/14/16 12:53; Start 09/14/16 at 09:30 Non-Formulary Medication 100 mg DAILY PO ; Start 09/15/16 at 09:00; Status UNV Carvedilol (Coreg) 25 mg BIDWMEALS PO Last administered on 09/14/16t 18:15; Start 09/14/16 at 10:00 Losartan Potassium (Cozaar) 100 mg DAILY PO Last administered on 09/14/16 12: 53; Start 09/14/16 at 10:00 Acetaminophen 650 mg 650 mg PRN Q6HRS PRN PO MILD PAIN / TEMP; Start 09/15/16 at 03:15 Cefazolin Sodium/ Dextrose (Ancef 2gm Premix) 50 ml @ 100 mls/hr 1X PREOP ONCE IV ; Start 09/15/16 at 08:45; Stop 09/15/16 at 09:14 Active Scripts Active Invokana (Canagliflozin) 100 Mg Tablet 100 Mg PO DAILY 30 Days Atorvastatin Calcium 40 Mg Tablet 1 Tab PO DAILY Novolog Flexpen (Insulin Aspart) 100 Unit/1 Ml Insuln.pen 25 Unit SQ TIDAC Lantus Solostar (Insulin Glargine,Hum.rec.anlog) 100 Unit/1 Ml Insuln.pen 60 Unit SQ BID Bentyl (Dicyclomine Hcl) 10 Mg Capsule 10 Mg PO QID PRN Reported D3 + K2 Dots 1,000 Units Tab (Vitamin D3/Vitamin K2) 1 Each Tab.rapdis 1 Each PO DAILY Fish Oil 1,000 Mg Capsule ([place]-3 Fatty Acids/Fish Oil) 1 Each Capsule 1 Each PO BID Donepezil Hcl 10 Mg Tablet 1 Tab PO DAILY Coreg (Carvedilol) 25 Mg Tablet 1 Tab PO BID Aggrenox 25 Mg-200 Mg Capsule (Aspirin/Dipyridamole) 1 Each Cpmp.12hr 1 Cap PO BID Cozaar (Losartan Potassium) 100 Mg Tablet 1 Tab PO DAILY Lasix (Furosemide) 20 Mg Tablet 1 Tab PO DAILY Zetia (Ezetimibe) 10 Mg Tablet 1 Tab PO DAILY Norvasc (Amlodipine Besylate) 5 Mg Tablet 1 Tab PO DAILY Potassium Chloride 10 Meq Capsule.er 1 Cap PO DAILY Magnesium Gluconate 30 Mg Tablet 250 Mg PO Co Q-10 (Ubidecarenone) 200 Mg Capsule 200 Mg PO DAILY Vitals/I & O Vital Sign - Last 24 Hours 09/14/16 09/14/16 09/14/1611/17 10:38 12:53 12:53 12:53 Temp 98.0 98.0 Pulse 72 72 72 72 Resp 18 B/P 124/52 124/52 124/52 124/52 Pulse Ox 92 O2 Delivery Room Air 09/14/16 09/14/16 09/14/16 09/14/16 13:05 13:40 14:36 18:15 Temp 100.2 100.2 Pulse 76 76 Resp 16 18 B/P 140/58 140/58 Pulse Ox 91 O2 Delivery Room Air Room Air Room Air 09/14/16 09/14/16 09/14/16 09/15/16 19:05 20:00 23:05 00:48 Temp 98.9 101.5 99.7 98.9 101.5 99.7 Pulse 77 76 Resp 18 18 B/P 125/56 124/53 Pulse Ox 90 92 O2 Delivery Room Air Room Air Room Air 09/15/16 09/15/16 09/15/16 03:05 04:04 07:00 Temp 100.4 98.3 100.4 98.3 Pulse 72 66 Resp 18 B/P 127/50 117/48 Pulse Ox 90 92 93 O2 Delivery Room Air Room Air Room Air Intake and Output 09/14/16 09/14/16 09/15/16 15:00 23:00 07:00 Intake Total 250 ml Output Total 950 ml Balance -950 ml 250 ml FAIZAN RAY MD Sep 15, 2016 09:03
--- NOTE | 2016-09-15 09:20 | PDOC ---
SANTI [employer]RE [employer] 09/15/16 0920: SURGICAL PROGRESS NOTE Subjective some nausea no significant pain Vital Signs Vital Signs Date Time Temp Pulse Resp B/P Pulse Ox O2 Delivery O2 Flow Rate FiO2 09/15/16 07:00 98.3 66 18 117/48 93 Room Air 98.3 I&O Intake and Output 09/15/16 07:00 Intake Total 250 ml Output Total 950 ml Balance -700 ml Intake Oral 250 ml Output Urine Total 950 ml PATIENT HAS A BORGES: No General: Alert, Oriented X3, Cooperative, No acute distress Abdomen: Soft, No tenderness, Other (NTTP) Labs Laboratory Tests Test 09/14/16 03:27 09/14/16 07:28 09/14/16 10:49 09/14/16 16:35 White Blood Count 13.6x10^3/uL (4.0-11.0) Red Blood Count 4.14x10^6/uL (4.30-5.70) Hemoglobin 13.0g/dL (13.0-17.5) Hematocrit 39.7% (39.0-53.0) Mean Corpuscular Volume 96fL (79-100) Mean Corpuscular Hemoglobin 31pg (25-35) Mean Corpuscular Hemoglobin Concent 33g/dL (31-37) Red Cell Distribution Width 13.2% (11.5-14.5) Platelet Count 265x10^3/uL (140-400) Neutrophils (%) (Auto) 94% (31-73) Lymphocytes (%) (Auto) 2% (24-48) Monocytes (%) (Auto) 3% (0-9) Eosinophils (%) (Auto) 0% (0-3) Basophils (%) (Auto) 1% (0-3) Neutrophils # (Auto) 12.8x10^3uL (1.8-7.7) Lymphocytes # (Auto) 0.3x10^3/uL (1.0-4.8) Monocytes # (Auto) 0.4x10^3/uL (0.0-1.1) Eosinophils # (Auto) 0.0x10^3/uL (0.0-0.7) Basophils # (Auto) 0.1x10^3/uL (0.0-0.2) Segmented Neutrophils % 81% (35-66) Band Neutrophils % 11% (0-9) Lymphocytes % 6% (24-48) Monocytes % 2% (0-10) Platelet Estimate Adequate (ADEQUATE) Sodium Level 135mmol/L (136-145) Potassium Level 4.1mmol/L (3.5-5.1) Chloride Level 98mmol/L (98-107) Carbon Dioxide Level 31mmol/L (21-32) Anion Gap 6 (6-14) Blood Urea Nitrogen 26mg/dL (8-26) Creatinine 1.5mg/dL (0.7-1.3) Estimated GFR (Cockcroft-Gault) 46.1 Glucose Level 245mg/dL (70-99) Calcium Level 9.6mg/dL (8.5-10.1) Total Bilirubin 0.4mg/dL (0.2-1.0) Direct Bilirubin 0.1mg/dL (0.0-0.2) Aspartate Amino Transf (AST/SGOT) 14U/L (15-37) Alanine Aminotransferase (ALT/SGPT) 21U/L (16-63) Alkaline Phosphatase 93U/L (46-116) Troponin I Quantitative < 0.017ng/mL (0.000-0.055) VR-Wiv-N-Type Natriuretic Peptide 118pg/mL (0-124) Total Protein 7.7g/dL (6.4-8.2) Albumin 3.7g/dL (3.4-5.0) Lipase 1005U/L (73-393) Glucose (Fingerstick) 264mg/dL (70-99) 258mg/dL (70-99) 206mg/dL (70-99) Test 09/14/16 20:59 09/15/16 04:30 09/15/16 07:05 Glucose (Fingerstick) 274mg/dL (70-99) 285mg/dL (70-99) White Blood Count 5.5x10^3/uL (4.0-11.0) Red Blood Count 3.66x10^6/uL (4.30-5.70) Hemoglobin 11.6g/dL (13.0-17.5) Hematocrit 35.1% (39.0-53.0) Mean Corpuscular Volume 96fL (79-100) Mean Corpuscular Hemoglobin 32pg (25-35) Mean Corpuscular Hemoglobin Concent 33g/dL (31-37) Red Cell Distribution Width 13.7% (11.5-14.5) Platelet Count 188x10^3/uL (140-400) Neutrophils (%) (Auto) 90% (31-73) Lymphocytes (%) (Auto) 5% (24-48) Monocytes (%) (Auto) 5% (0-9) Eosinophils (%) (Auto) 0% (0-3) Basophils (%) (Auto) 0% (0-3) Neutrophils # (Auto) 4.9x10^3uL (1.8-7.7) Lymphocytes # (Auto) 0.3x10^3/uL (1.0-4.8) Monocytes # (Auto) 0.3x10^3/uL (0.0-1.1) Eosinophils # (Auto) 0.0x10^3/uL (0.0-0.7) Basophils # (Auto) 0.0x10^3/uL (0.0-0.2) Sodium Level 135mmol/L (136-145) Potassium Level 3.9mmol/L (3.5-5.1) Chloride Level 102mmol/L (98-107) Carbon Dioxide Level 23mmol/L (21-32) Anion Gap 10 (6-14) Blood Urea Nitrogen 26mg/dL (8-26) Creatinine 1.3mg/dL (0.7-1.3) Estimated GFR (Cockcroft-Gault) 54.4 BUN/Creatinine Ratio 20 (6-20) Glucose Level 284mg/dL (70-99) Calcium Level 7.8mg/dL (8.5-10.1) Total Bilirubin 0.3mg/dL (0.2-1.0) Aspartate Amino Transf (AST/SGOT) 13U/L (15-37) Alanine Aminotransferase (ALT/SGPT) 13U/L (16-63) Alkaline Phosphatase 52U/L (46-116) Total Protein 6.0g/dL (6.4-8.2) Albumin 2.7g/dL (3.4-5.0) Albumin/Globulin Ratio 0.8 (1.0-1.7) Lipase 63U/L (73-393) Laboratory Tests Test 1/11/17 10:49 09/14/16 16:35 09/14/16 20:59 09/15/16 04:30 Glucose (Fingerstick) 258mg/dL (70-99) 206mg/dL (70-99) 274mg/dL (70-99) White Blood Count 5.5x10^3/uL (4.0-11.0) Red Blood Count 3.66x10^6/uL (4.30-5.70) Hemoglobin 11.6g/dL (13.0-17.5) Hematocrit 35.1% (39.0-53.0) Mean Corpuscular Volume 96fL (79-100) Mean Corpuscular Hemoglobin 32pg (25-35) Mean Corpuscular Hemoglobin Concent 33g/dL (31-37) Red Cell Distribution Width 13.7% (11.5-14.5) Platelet Count 188x10^3/uL (140-400) Neutrophils (%) (Auto) 90% (31-73) Lymphocytes (%) (Auto) 5% (24-48) Monocytes (%) (Auto) 5% (0-9) Eosinophils (%) (Auto) 0% (0-3) Basophils (%) (Auto) 0% (0-3) Neutrophils # (Auto) 4.9x10^3uL (1.8-7.7) Lymphocytes # (Auto) 0.3x10^3/uL (1.0-4.8) Monocytes # (Auto) 0.3x10^3/uL (0.0-1.1) Eosinophils # (Auto) 0.0x10^3/uL (0.0-0.7) Basophils # (Auto) 0.0x10^3/uL (0.0-0.2) Sodium Level 135mmol/L (136-145) Potassium Level 3.9mmol/L (3.5-5.1) Chloride Level 102mmol/L (98-107) Carbon Dioxide Level 23mmol/L (21-32) Anion Gap 10 (6-14) Blood Urea Nitrogen 26mg/dL (8-26) Creatinine 1.3mg/dL (0.7-1.3) Estimated GFR (Cockcroft-Gault) 54.4 BUN/Creatinine Ratio 20 (6-20) Glucose Level 284mg/dL (70-99) Calcium Level 7.8mg/dL (8.5-10.1) Total Bilirubin 0.3mg/dL (0.2-1.0) Aspartate Amino Transf (AST/SGOT) 13U/L (15-37) Alanine Aminotransferase (ALT/SGPT) 13U/L (16-63) Alkaline Phosphatase 52U/L (46-116) Total Protein 6.0g/dL (6.4-8.2) Albumin 2.7g/dL (3.4-5.0) Albumin/Globulin Ratio 0.8 (1.0-1.7) Lipase 63U/L (73-393) Test 09/15/16 07:05 Glucose (Fingerstick) 285mg/dL (70-99) Problem List Problems Medical Problems: (1) Pancreatitis Status: Acute Assessment/Plan gallstone pancreatitis fevers tmax 10.15, lipase, wbc normal will review with Dr Winter on timing of surgery--if fevers persist, may need CT to evaluate pancreatitis Problems: STEFAN WINTER MD 09/15/16 1015: SURGICAL PROGRESS NOTE Assessment/Plan Pt seen and examined. Agree with Ms. Maguire's note Pt reports feeling better, no sig pain lipase resolved will tentatively plan lap [place] with grams in AM, but will monitor fever may need fever w/u if persists Problems: SANTI MAGUIRE APRN Sep 15, 2016 09:20 STEFAN WINTER MD Sep 15, 2016 10:15
[2016-09-15] MEDS: ACETAMINOPHEN 325 MG TABLET. PO PRN ×2 (09:22→23:59)
[2016-09-15] MEDS: FUROSEMIDE 20 MG TABLET PO SCH (09:23)
[2016-09-15] MEDS: LOSARTAN POTASSIUM 50 MG TABLET. PO SCH (09:23)
[2016-09-15] MEDS: CEFTRIAXONE SODIUM 1 GM in IV NORMAL SALINE 50ML 50 ML IV SCH (09:23)
[2016-09-15] MEDS: DONEPEZIL HCL 10 MG TABLET. PO SCH (09:24)
[2016-09-15] MEDS: AMLODIPINE BESYLATE 5 MG TABLET PO SCH (09:24)
[2016-09-15] MEDS: CARVEDILOL 12.5 MG TABLET PO SCH ×2 (09:24→16:23)
[2016-09-15] MEDS: INSULIN ASPART 300 UNITS/3 ML INSULN.PEN SQ SCH ×3 (09:33→16:33)
[2016-09-15 11:00] VITALS: BP 109/44
[2016-09-15 15:06] VITALS: BP 117/48
[2016-09-15] MEDS: POTASSIUM CL 20MEQ-0.45% NACL 1,000 ML IV SCH (16:22)
[2016-09-15 19:30] VITALS: BP 125/55
--- NOTE | 2016-09-15 20:05 | CONS ---
DATE OF CONSULTATION: 09/14/2016 REFERRING PHYSICIANS: Dr. Alexandria Roblero, Dr. Percy Vallejo and ____. Thank you for the consult. CHIEF COMPLAINT: Epigastric abdominal pain, nausea, vomiting. DIAGNOSIS: Gallstone pancreatitis. PLANNED PROCEDURE: Laparoscopic cholecystectomy with intraoperative cholangiogram. HISTORY OF PRESENT ILLNESS: This is a 71-year-old male who has been reporting some abdominal pain for about a week, worsened and subsequently presented from Emergency Room for evaluation. He is seen in his hospital room accompanied by supportive son and brother and does report feeling somewhat better. He is still having some mild pain, does report some mild nausea. He is a poor historian and his history is primarily obtained from his family. ALLERGIES: He has an allergy to penicillin, niacin and simvastatin. MEDICATIONS: Include insulin, Zetia, NovoLog, donepezil, atorvastatin, Coreg, Aggrenox, Lasix, amlodipine, losartan and potassium. PAST MEDICAL HISTORY: Diabetes, insulin-dependent. Of note, the patient's brother notes that he has been having more difficulty controlling his sugars over the past week or so with glucose into the 400s. Hypertension, coronary artery disease, congestive heart failure, peripheral vascular disease, memory loss, hyperlipidemia. PAST SURGICAL HISTORY: Appendectomy, CABG, right [id number] amputation. SOCIAL HISTORY: No tobacco currently, but previous history. No significant alcohol use. FAMILY HISTORY: Noncontributory. REVIEW OF SYSTEMS: Difficult to obtain secondary to the patient being a poor historian. PHYSICAL EXAMINATION: GENERAL: Well-developed, obese male, lying in bed, in no obvious distress. VITAL SIGNS: His temperature is 100.2. Vital signs are otherwise within normal limits. HEENT: Normocephalic, anicteric sclerae. Oropharynx clear. NECK: Supple. CHEST: Bilateral chest excursion. ABDOMEN: Soft, nondistended. There is very minimal tenderness to palpation in the upper abdomen. EXTREMITIES: He has a previous amputation. LABORATORY DATA: His white blood cell count is 13.6, glucoses have been in the 200s, BNP is 118. Lipase was 1005 on presentation. Creatinine is 1.5. IMAGING: Abdominal ultrasound demonstrates cholelithiasis with borderline thickened gallbladder, hepatic steatosis. Chest x-ray is unremarkable. IMPRESSION AND RECOMMENDATIONS: A 71-year-old male with gallstone pancreatitis, agree with supportive care and bowel rest at this time. Tentatively, we will plan on laparoscopic cholecystectomy with intraoperative cholangiogram once his pancreatitis is improved, tentatively scheduled for 09/14/2016 at approximately 1300. The risks, benefits and alternatives are discussed with the patient and the patient's family. Risks including but not limited to bleeding, infection, damage to surrounding structures, risk of anesthesia, risk of an open procedure. The patient and patient's family appeared to understand. Their insightful questions were answered and they agreed to proceed. Thank you for allowing my participation in the care of this pleasant patient. STEFAN TAYLOR MD DR: KURT/brandyn JOB#: [id number] / [id number] ALEXANDRIA Toussaint MD, TERRY MD , MTDD
[2016-09-15] MEDS ORDERED: INSULIN DETEMIR 300 UNITS/3 ML INSULN.PEN. SQ SCH (21:00)
[2016-09-15 23:51] VITALS: BP 106/46
[2016-09-16] VITALS (7 sets, daily range): BP systolic 109–147; BP diastolic 52–64
[2016-09-16] MEDS: POTASSIUM CL 20MEQ-0.45% NACL 1,000 ML IV SCH ×2 (00:10→14:59)
[2016-09-16 05:11] LABS: HEMOGLOBIN 11.8 g/dL (13.0-17.5); RED BLOOD COUNT 3.67 x10^6/uL (4.30-5.70); RED CELL DISTRIBUTION WIDTH 13.6 % (11.5-14.5); WHITE BLOOD COUNT 4.3 x10^3/uL (4.0-11.0)
[2016-09-16 05:27] LABS: CALCIUM 7.7 mg/dL (8.5-10.1); CREATININE 1.1 mg/dL (0.7-1.3); POTASSIUM 4.2 mmol/L (3.5-5.1)
[2016-09-16] MEDS ORDERED: HEPARIN 1,000 UNIT in IV NORMAL SALINE 1,000 ML for SURG PERIOP IRR ONE (06:00)
[2016-09-16] MEDS ORDERED: IV RINGERS,LACTATED 1000ML 1,000 ML IV SCH ×2 (07:00→13:12)
[2016-09-16] MEDS ORDERED: HYDROMORPHONE 2 MG/ML VIAL. IV PRN ×2 (07:00)
[2016-09-16] MEDS ORDERED: ONDANSETRON PF 4 MG/2 ML VIAL. IV PRN (07:00)
[2016-09-16] MEDS ORDERED: FENTANYL PF 100 MCG/2 ML VIAL. IV PRN ×5 (07:00)
[2016-09-16] MEDS ORDERED: MORPHINE SULFATE 2 MG/ML DISP.SYRIN. IV PRN (07:00)
[2016-09-16] MEDS ORDERED: PROCHLORPERAZINE 10 MG/2 ML VIAL. IV PRN ×2 (07:00)
[2016-09-16] MEDS ORDERED: DIPHENHYDRAMINE 50 MG/ML VIAL IV PRN (07:00)
[2016-09-16] MEDS ORDERED: LIDOCAINE 1% 1 ML SYRINGE. ID PRN ×2 (07:00)
[2016-09-16] MEDS ORDERED: MORPHINE SULFATE 4 MG/ML DISP.SYRIN. IV PRN (07:00)
[2016-09-16] MEDS ORDERED: MIDAZOLAM HCL 2 MG/2 ML VIAL. IV PRN ×2 (07:00)
[2016-09-16] MEDS ORDERED: MEPERIDINE PF 25 MG/ML VIAL. IV PRN (07:00)
[2016-09-16] MEDS ORDERED: BUPIVACAINE-EPI 0.5%-1:200000 50 ML VIAL. ONE (07:21)
[2016-09-16] MEDS ORDERED: SURGICEL HEMOSTAT 2X3 EACH. ONE (07:21)
[2016-09-16] MEDS ORDERED: IOHEXOL 300 MG/ML 50 ML VIAL. ONE ×2 (07:21→12:38)
[2016-09-16] MEDS ORDERED: BISACODYL 10 MG SUPP.RECT ONE (07:21)
[2016-09-16] MEDS: CARVEDILOL 12.5 MG TABLET PO SCH ×2 (08:00→17:01)
[2016-09-16] MEDS: FUROSEMIDE 20 MG TABLET PO SCH (09:00)
[2016-09-16] MEDS: AMLODIPINE BESYLATE 5 MG TABLET PO SCH (09:00)
[2016-09-16] MEDS: DONEPEZIL HCL 10 MG TABLET. PO SCH (09:00)
[2016-09-16] MEDS: LOSARTAN POTASSIUM 50 MG TABLET. PO SCH (09:00)
--- NOTE | 2016-09-16 09:17 | PDOC ---
PROGRESS NOTES Subjective Subjective Patient reports some mild abdominal pain, no other concerns. Objective Objective Vital Signs Date Time Temp Pulse Resp B/P Pulse Ox O2 Delivery O2 Flow Rate FiO2 09/16/16 07:40 Room Air 09/16/16 03:35 97.6 54 18 109/52 93 97.6 Intake and Output 09/16/16 07:00 Intake Total 1660 ml Output Total 2400 ml Balance -740 ml Intake Oral 1660 ml Output Urine Total 2400 ml # Bowel Movements 1 Physical Exam Abdomen: Normal bowel sounds, Soft, No tenderness Heart: Regular rate Extremities: No edema General: Alert, Oriented X3, No acute distress Lungs: Clear to auscultation Assessment Assessment Problems Medical Problems: (1) Pancreatitis Status: Acute Plan Plan of Care 1. Acute cholecystitis with pancreatitis - patient has been afebrile for over 24 hours now, anticipate surgery today per Dr Winter. Continue IVF and Rocephin. Lipase and WBC's now WNL. 2. DM2 - glucose still mildly elevated, have increased Levemir for today. Resume his usual doses when no longer NPO. 3. HTN - well controlled, continue home meds. 4. CHF with mild diastolic dysfunction - compensated, continue his usual Lasix. 5. memory loss - stable, continue home meds and supportive care. Comment Review of Relevant I have reviewed the following items harman (where applicable) has been applied. Labs Laboratory Tests Test 09/14/16 10:49 09/14/16 16:35 09/14/16 20:59 09/15/16 04:30 Glucose (Fingerstick) 258mg/dL (70-99) 206mg/dL (70-99) 274mg/dL (70-99) White Blood Count 5.5x10^3/uL (4.0-11.0) Red Blood Count 3.66x10^6/uL (4.30-5.70) Hemoglobin 11.6g/dL (13.0-17.5) Hematocrit 35.1% (39.0-53.0) Mean Corpuscular Volume 96fL (79-100) Mean Corpuscular Hemoglobin 32pg (25-35) Mean Corpuscular Hemoglobin Concent 33g/dL (31-37) Red Cell Distribution Width 13.7% (11.5-14.5) Platelet Count 188x10^3/uL (140-400) Neutrophils (%) (Auto) 90% (31-73) Lymphocytes (%) (Auto) 5% (24-48) Monocytes (%) (Auto) 5% (0-9) Eosinophils (%) (Auto) 0% (0-3) Basophils (%) (Auto) 0% (0-3) Neutrophils # (Auto) 4.9x10^3uL (1.8-7.7) Lymphocytes # (Auto) 0.3x10^3/uL (1.0-4.8) Monocytes # (Auto) 0.3x10^3/uL (0.0-1.1) Eosinophils # (Auto) 0.0x10^3/uL (0.0-0.7) Basophils # (Auto) 0.0x10^3/uL (0.0-0.2) Sodium Level 135mmol/L (136-145) Potassium Level 3.9mmol/L (3.5-5.1) Chloride Level 102mmol/L (98-107) Carbon Dioxide Level 23mmol/L (21-32) Anion Gap 10 (6-14) Blood Urea Nitrogen 26mg/dL (8-26) Creatinine 1.3mg/dL (0.7-1.3) Estimated GFR (Cockcroft-Gault) 54.4 BUN/Creatinine Ratio 20 (6-20) Glucose Level 284mg/dL (70-99) Calcium Level 7.8mg/dL (8.5-10.1) Total Bilirubin 0.3mg/dL (0.2-1.0) Aspartate Amino Transf (AST/SGOT) 13U/L (15-37) Alanine Aminotransferase (ALT/SGPT) 13U/L (16-63) Alkaline Phosphatase 52U/L (46-116) Total Protein 6.0g/dL (6.4-8.2) Albumin 2.7g/dL (3.4-5.0) Albumin/Globulin Ratio 0.8 (1.0-1.7) Lipase 63U/L (73-393) Test 09/15/16 07:05 09/15/16 11:52 09/15/16 16:29 09/15/16 21:18 Glucose (Fingerstick) 285mg/dL (70-99) 247mg/dL (70-99) 283mg/dL (70-99) 300mg/dL (70-99) Test 09/16/16 01:29 09/16/16 04:20 09/16/16 08:22 Glucose (Fingerstick) 268mg/dL (70-99) 218mg/dL (70-99) White Blood Count 4.3x10^3/uL (4.0-11.0) Red Blood Count 3.67x10^6/uL (4.30-5.70) Hemoglobin 11.8g/dL (13.0-17.5) Hematocrit 35.0% (39.0-53.0) Mean Corpuscular Volume 95fL (79-100) Mean Corpuscular Hemoglobin 32pg (25-35) Mean Corpuscular Hemoglobin Concent 34g/dL (31-37) Red Cell Distribution Width 13.6% (11.5-14.5) Platelet Count 168x10^3/uL (140-400) Sodium Level 138mmol/L (136-145) Potassium Level 4.2mmol/L (3.5-5.1) Chloride Level 105mmol/L (98-107) Carbon Dioxide Level 24mmol/L (21-32) Anion Gap 9 (6-14) Blood Urea Nitrogen 16mg/dL (8-26) Creatinine 1.1mg/dL (0.7-1.3) Estimated GFR (Cockcroft-Gault) 66.0 Glucose Level 234mg/dL (70-99) Calcium Level 7.7mg/dL (8.5-10.1) Laboratory Tests Test 09/15/16 11:52 09/15/16 16:29 09/15/16 21:18 09/16/16 01:29 Glucose (Fingerstick) 247mg/dL (70-99) 283mg/dL (70-99) 300mg/dL (70-99) 268mg/dL (70-99) Test 09/16/16 04:20 09/16/16 08:22 White Blood Count 4.3x10^3/uL (4.0-11.0) Red Blood Count 3.67x10^6/uL (4.30-5.70) Hemoglobin 11.8g/dL (13.0-17.5) Hematocrit 35.0% (39.0-53.0) Mean Corpuscular Volume 95fL (79-100) Mean Corpuscular Hemoglobin 32pg (25-35) Mean Corpuscular Hemoglobin Concent 34g/dL (31-37) Red Cell Distribution Width 13.6% (11.5-14.5) Platelet Count 168x10^3/uL (140-400) Sodium Level 138mmol/L (136-145) Potassium Level 4.2mmol/L (3.5-5.1) Chloride Level 105mmol/L (98-107) Carbon Dioxide Level 24mmol/L (21-32) Anion Gap 9 (6-14) Blood Urea Nitrogen 16mg/dL (8-26) Creatinine 1.1mg/dL (0.7-1.3) Estimated GFR (Cockcroft-Gault) 66.0 Glucose Level 234mg/dL (70-99) Calcium Level 7.7mg/dL (8.5-10.1) Glucose (Fingerstick) 218mg/dL (70-99) Medications Current Medications Aspirin (Children'S Aspirin) 324 mg 1X ONCE PO ; Start 09/14/16 at 04:00; Stop 09/14/16 at 04:01; Status DC Nitroglycerin (Nitrostat) 0.4 mg PRN Q5MIN PRN SL CHEST PAIN Last administered on 09/14/16 03:33; Start 09/14/16 at 03:30 Morphine Sulfate 2 mg PRN Q1HR PRN IV SEVERE PAIN Last administered on 08:35; Start 09/14/16 at 03:30; Stop 09/14/16 at 09:00; Status DC Nitroglycerin (Nitrostat) 0.4 mg STK-MED ONCE SL ; Start 09/14/16 at 03:27; Stop 09/14/16 at 03:28; Status DC Morphine Sulfate 2 mg STK-MED ONCE .ROUTE ; Start 09/14/16 at 03:28; Stop at 03:29; Status DC Ondansetron HCl (Zofran) 4 mg PRN Q8HRS PRN IV NAUSEA/VOMITING; Start 09/14/16 at 05:15; Stop 09/15/16 at 05:14; Status DC Morphine Sulfate 2 mg 2 mg PRN Q2HR PRN IV SEVERE PAIN Last administered on 04:04; Start 09/14/16 at 05:15; Stop 09/15/16 at 05:14; Status DC Sodium Chloride (Iv Sodium Chloride 0.9% 1000ml Bag) 1,000 ml @ 125 mls/hr Q8H IV Last administered on 09/14/16 05:01; Start 09/14/16 at 05:01; Stop at 09:15; Status DC Insulin Aspart (Novolog) 0-9 UNITS TIDWMEALS SQ Last administered on 09/15/16 16:33; Start 09/14/16 at 12:00 Dextrose 12.5 gm 12.5 gm PRN Q15MIN PRN IV SEE COMMENTS; Start 09/14/16 at 09: 00 Ceftriaxone Sodium 1 gm/ Sodium Chloride 50 ml @ 100 mls/hr Q24H IV Last administered on 09/15/16 09:23; Start 09/14/16 at 10:00 Potassium Chloride/Sodium Chloride (KCl 20 Meq-0.45% Nacl) 1,000 ml @ 75 mls/ hr [id number] IV Last administered on 09/16/16 00:10; Start 09/14/16 at 09:15 Amlodipine Besylate (Norvasc) 5 mg DAILY PO Last administered on 09/15/16 09: 24; Start 09/14/16 at 10:00 Dicyclomine HCl (Bentyl) 10 mg PRN QID PRN PO ABDOMINAL PAIN; Start 09/14/16 at 09:30 Donepezil HCl (Aricept) 10 mg DAILY PO Last administered on 09/15/16 09:24; Start 09/14/16 at 10:00 Furosemide (Lasix) 20 mg DAILY PO Last administered on 09/15/16 09:23; Start 09/14/16 at 09:30 Non-Formulary Medication 100 mg DAILY PO ; Start 09/15/16 at 09:00; Stop at 09:00; Status DC Carvedilol (Coreg) 25 mg BIDWMEALS PO Last administered on 09/15/16 16:23; Start 09/14/16 at 10:00 Losartan Potassium (Cozaar) 100 mg DAILY PO Last administered on 09/15/16 09: 23; Start 09/14/16 at 10:00 Acetaminophen 650 mg 650 mg PRN Q6HRS PRN PO MILD PAIN / TEMP Last administered on 09/15/16 23:59; Start 09/15/16 at 03:15 Cefazolin Sodium/ Dextrose (Ancef 2gm Premix) 50 ml @ 100 mls/hr 1X PREOP ONCE IV ; Start 09/15/16 at 08:45; Stop 09/15/16 at 09:14; Status DC Insulin Detemir 15 units 15 units QHS SQ Last administered on 09/15/16 21:28; Start 09/15/16 at 21:00 Heparin Sodium (Porcine)/Sodium Chloride (Iv Sodium Chloride 0.9% 1000ml Bag) 1, 001 ml @ 1,001 mls/hr 1X PERIOP ONCE IRR ; Start 09/16/16 at 06:00; Stop 09/16 at 06:59; Status DC Ondansetron HCl (Zofran) 4 mg PRN Q6HRS PRN IV Nausea; Start 09/16/16 at 07:00 ; Stop 09/17/16 at 06:59 Fentanyl Citrate (Fentanyl 2ml Vial) 25 mcg PRN Q5MIN PRN IV MILD PAIN; Start 09/16/16 at 07:00; Stop 09/17/16 at 06:59 Fentanyl Citrate (Fentanyl 2ml Vial) 50 mcg PRN Q5MIN PRN IV MODERATE PAIN; Start 09/16/16 at 07:00; Stop 09/17/16 at 06:59 Morphine Sulfate 1 mg 1 mg PRN Q10MIN PRN IV SEVERE PAIN; Start 09/16/16 at 07: 00; Stop 09/17/16 at 06:59 Lactated Ringer's (Iv Lactated Ringers) 1,000 ml @ 30 mls/hr Q24H IV ; Start at 07:00; Stop 09/16/16 at 18:59 Lidocaine HCl 2 ml 1X PRN PRN ID IV START; Start 09/16/16 at 07:00; Stop at 06:59 Hydromorphone HCl (Dilaudid) 0.5 mg PRN Q10MIN PRN IV SEVERE PAIN, Second choice; Start 09/16/16 at 07:00; Stop 09/17/16 at 06:59 Prochlorperazine Edisylate (Compazine) 5 mg PACU PRN PRN IV NAUSEA; Start 09/16 at 07:00; Stop 09/17/16 at 06:59 Fentanyl Citrate (Fentanyl 2ml Vial) 50 mcg PRN Q5MIN PRN IV Acute Pain; Start 09/16/16 at 07:00; Stop 09/17/16 at 06:59 Morphine Sulfate 4 mg PRN Q10MIN PRN IV Moderate Pain; Start 09/16/16 at 07:00 ; Stop 09/17/16 at 06:59 Hydromorphone HCl (Dilaudid) 0.4 mg PRN Q10MIN PRN IV Moderate to severe pain; Start 09/16/16 at 07:00; Stop 09/17/16 at 06:59 Meperidine HCl (Demerol) 12.5 mg PRN Q5MIN PRN IV SHIVERING; Start 09/16/16 at 07:00; Stop 09/17/16 at 06:59 Prochlorperazine Edisylate (Compazine) 5 mg PRN Q6HRS PRN IV Nausea/Vomiting, 1st Choice; Start 09/16/16 at 07:00; Stop 09/17/16 at 06:59 Diphenhydramine HCl (Benadryl) 12.5 mg PRN Q2HR PRN IV ITCHING; Start 09/16/16 at 07:00; Stop 09/17/16 at 06:59 Midazolam HCl (Versed) 2 mg PRN 1X PRN IV PRIOR TO PROCEDURE; Start 09/16/16 at 07:00; Stop 09/17/16 at 06:59 Midazolam HCl (Versed) 1 mg PRN 1X PRN IV PRIOR TO PROCEDURE; Start 09/16/16 at 07:00; Stop 09/17/16 at 06:59 Fentanyl Citrate (Fentanyl 2ml Vial) 25 mcg PRN Q5MIN PRN IV X 2 DOSES FOR PAIN ; Start 09/16/16 at 07:00; Stop 09/17/16 at 06:59 Fentanyl Citrate 50 mcg 50 mcg PRN Q5MIN PRN IV X 2 DOSES FOR PAIN; Start 09/16 at 07:00; Stop 09/17/16 at 06:59 Lactated Ringer's (Iv Lactated Ringers) 1,000 ml @ 125 mls/hr Q8H IV ; Start at 06:59; Stop 09/16/16 at 18:58 Lidocaine HCl 2 ml 1X PRN PRN ID IV START; Start 09/16/16 at 07:00; Stop at 06:59 Iohexol (Omnipaque 300 Mg/ml) 50 ml STK-MED ONCE .ROUTE ; Start 09/16/16 at 07: 21; Stop 09/16/16 at 07:22; Status DC Cellulose 1 each STK-MED ONCE .ROUTE ; Start 09/16/16 at 07:21; Stop 09/16/16 at 07:22; Status DC Bupivacaine HCl/ Epinephrine Bitart (Marcaine-Epi 0.5%-1:[id number]) 50 ml STK-MED ONCE .ROUTE ; Start 09/16/16 at 07:21; Stop 09/16/16 at 07:22; Status DC Bisacodyl (Dulcolax Supp) 10 mg STK-MED ONCE .ROUTE ; Start 09/16/16 at 07:21; Stop 09/16/16 at 07:22; Status DC Active Scripts Active Invokana (Canagliflozin) 100 Mg Tablet 100 Mg PO DAILY 30 Days Atorvastatin Calcium 40 Mg Tablet 1 Tab PO DAILY Novolog Flexpen (Insulin Aspart) 100 Unit/1 Ml Insuln.pen 25 Unit SQ TIDAC Lantus Solostar (Insulin Glargine,Hum.rec.anlog) 100 Unit/1 Ml Insuln.pen 60 Unit SQ BID Bentyl (Dicyclomine Hcl) 10 Mg Capsule 10 Mg PO QID PRN Reported D3 + K2 Dots 1,000 Units Tab (Vitamin D3/Vitamin K2) 1 Each Tab.rapdis 1 Each PO DAILY Fish Oil 1,000 Mg Capsule (Atka-3 Fatty Acids/Fish Oil) 1 Each Capsule 1 Each PO BID Donepezil Hcl 10 Mg Tablet 1 Tab PO DAILY Coreg (Carvedilol) 25 Mg Tablet 1 Tab PO BID Aggrenox 25 Mg-200 Mg Capsule (Aspirin/Dipyridamole) 1 Each Cpmp.12hr 1 Cap PO BID Cozaar (Losartan Potassium) 100 Mg Tablet 1 Tab PO DAILY Lasix (Furosemide) 20 Mg Tablet 1 Tab PO DAILY Zetia (Ezetimibe) 10 Mg Tablet 1 Tab PO DAILY Norvasc (Amlodipine Besylate) 5 Mg Tablet 1 Tab PO DAILY Potassium Chloride 10 Meq Capsule.er 1 Cap PO DAILY Magnesium Gluconate 30 Mg Tablet 250 Mg PO Co Q-10 (Ubidecarenone) 200 Mg Capsule 200 Mg PO DAILY Vitals/I & O Vital Sign - Last 24 Hours 09/15/16 09/15/16 09/15/16 09/15/16 09:23 09:24 09:24 11:00 Temp 97.7 97.7 Pulse 66 66 66 64 Resp 18 B/P 117/48 117/48 117/48 109/44 Pulse Ox 93 O2 Delivery Room Air 09/15/16 09/15/16 09/15/16 09/15/16 15:06 16:23 19:30 20:00 Temp 96.9 98.0 96.9 98.0 Pulse 60 70 62 Resp 14 18 B/P 117/48 117/48 125/55 Pulse Ox 94 92 O2 Delivery Room Air Room Air Room Air 09/15/16 09/16/16 09/16/16 23:51 03:35 07:40 Temp 98.1 97.6 98.1 97.6 Pulse 64 54 Resp 18 18 B/P 106/46 109/52 Pulse Ox 94 93 O2 Delivery Room Air Room Air Room Air Intake and Output 09/15/16 09/15/16 09/16/16 15:00 23:00 07:00 Intake Total 480 ml 1080 ml 100 ml Output Total 475 ml 1025 ml 900 ml Balance 5 ml 55 ml -800 ml FAIZAN RAY MD Sep 16, 2016 09:16
[2016-09-16] MEDS: CEFTRIAXONE SODIUM 1 GM in IV NORMAL SALINE 50ML 50 ML IV SCH (09:41)
[2016-09-16] MEDS: INSULIN ASPART 300 UNITS/3 ML INSULN.PEN SQ SCH ×3 (09:46→17:04)
[2016-09-16] MEDS ORDERED: CEFAZOLIN 2GM PREMIX 0 ML IV ONE (11:11)
[2016-09-16] MEDS ORDERED: ONDANSETRON PF 4 MG/2 ML VIAL. ONE (11:23)
[2016-09-16] MEDS ORDERED: PROPOFOL 20 ML IV ONE (11:23)
[2016-09-16] MEDS ORDERED: ROCURONIUM 100 MG/10 ML VIAL. ONE (11:23)
[2016-09-16] MEDS ORDERED: FENTANYL PF 250 MCG/5 ML VIAL. ONE (11:23)
[2016-09-16] MEDS ORDERED: LIDOCAINE 2% 100 MG/5 ML DISP.SYRIN. ONE (11:23)
[2016-09-16] MEDS ORDERED: DEXAMETHASONE SOD PHOS 20 MG/5 ML VIAL. ONE (11:23)
[2016-09-16] MEDS: IV RINGERS,LACTATED 1000ML 1,000 ML IV SCH ×2 (11:25→14:59)
[2016-09-16] MEDS ORDERED: CEFAZOLIN 2GM PREMIX 50 ML IV ONE (11:30)
--- NOTE | 2016-09-16 11:30 | PDOC ---
SURGICAL PROGRESS NOTE Subjective 71 yo M with gallstone pancreatitis Reports feeling better TO OR for lap aurora with grams R/B/a d/w pt Vital Signs Vital Signs Date Time Temp Pulse Resp B/P Pulse Ox O2 Delivery O2 Flow Rate FiO2 09/16/16 11:22 98.0 49 18 131/58 92 Room Air 98.0 I&O Intake and Output 09/16/16 07:00 Intake Total 1660 ml Output Total 2400 ml Balance -740 ml Intake Oral 1660 ml Output Urine Total 2400 ml # Bowel Movements 1 Labs Laboratory Tests Test 09/14/16 16:35 09/14/16 20:59 09/15/16 04:30 09/15/16 07:05 Glucose (Fingerstick) 206mg/dL (70-99) 274mg/dL (70-99) 285mg/dL (70-99) White Blood Count 5.5x10^3/uL (4.0-11.0) Red Blood Count 3.66x10^6/uL (4.30-5.70) Hemoglobin 11.6g/dL (13.0-17.5) Hematocrit 35.1% (39.0-53.0) Mean Corpuscular Volume 96fL (79-100) Mean Corpuscular Hemoglobin 32pg (25-35) Mean Corpuscular Hemoglobin Concent 33g/dL (31-37) Red Cell Distribution Width 13.7% (11.5-14.5) Platelet Count 188x10^3/uL (140-400) Neutrophils (%) (Auto) 90% (31-73) Lymphocytes (%) (Auto) 5% (24-48) Monocytes (%) (Auto) 5% (0-9) Eosinophils (%) (Auto) 0% (0-3) Basophils (%) (Auto) 0% (0-3) Neutrophils # (Auto) 4.9x10^3uL (1.8-7.7) Lymphocytes # (Auto) 0.3x10^3/uL (1.0-4.8) Monocytes # (Auto) 0.3x10^3/uL (0.0-1.1) Eosinophils # (Auto) 0.0x10^3/uL (0.0-0.7) Basophils # (Auto) 0.0x10^3/uL (0.0-0.2) Sodium Level 135mmol/L (136-145) Potassium Level 3.9mmol/L (3.5-5.1) Chloride Level 102mmol/L (98-107) Carbon Dioxide Level 23mmol/L (21-32) Anion Gap 10 (6-14) Blood Urea Nitrogen 26mg/dL (8-26) Creatinine 1.3mg/dL (0.7-1.3) Estimated GFR (Cockcroft-Gault) 54.4 BUN/Creatinine Ratio 20 (6-20) Glucose Level 284mg/dL (70-99) Calcium Level 7.8mg/dL (8.5-10.1) Total Bilirubin 0.3mg/dL (0.2-1.0) Aspartate Amino Transf (AST/SGOT) 13U/L (15-37) Alanine Aminotransferase (ALT/SGPT) 13U/L (16-63) Alkaline Phosphatase 52U/L (46-116) Total Protein 6.0g/dL (6.4-8.2) Albumin 2.7g/dL (3.4-5.0) Albumin/Globulin Ratio 0.8 (1.0-1.7) Lipase 63U/L (73-393) Test 09/15/16 11:52 09/15/16 16:29 09/15/16 21:18 09/16/16 01:29 Glucose (Fingerstick) 247mg/dL (70-99) 283mg/dL (70-99) 300mg/dL (70-99) 268mg/dL (70-99) Test 09/16/16 04:20 09/16/16 08:22 09/16/16 11:18 White Blood Count 4.3x10^3/uL (4.0-11.0) Red Blood Count 3.67x10^6/uL (4.30-5.70) Hemoglobin 11.8g/dL (13.0-17.5) Hematocrit 35.0% (39.0-53.0) Mean Corpuscular Volume 95fL (79-100) Mean Corpuscular Hemoglobin 32pg (25-35) Mean Corpuscular Hemoglobin Concent 34g/dL (31-37) Red Cell Distribution Width 13.6% (11.5-14.5) Platelet Count 168x10^3/uL (140-400) Sodium Level 138mmol/L (136-145) Potassium Level 4.2mmol/L (3.5-5.1) Chloride Level 105mmol/L (98-107) Carbon Dioxide Level 24mmol/L (21-32) Anion Gap 9 (6-14) Blood Urea Nitrogen 16mg/dL (8-26) Creatinine 1.1mg/dL (0.7-1.3) Estimated GFR (Cockcroft-Gault) 66.0 Glucose Level 234mg/dL (70-99) Calcium Level 7.7mg/dL (8.5-10.1) Glucose (Fingerstick) 218mg/dL (70-99) 169mg/dL (70-99) Laboratory Tests Test 09/15/16 11:52 09/15/16 16:29 09/15/16 21:18 09/16/16 01:29 Glucose (Fingerstick) 247mg/dL (70-99) 283mg/dL (70-99) 300mg/dL (70-99) 268mg/dL (70-99) Test 09/16/16 04:20 09/16/16 08:22 09/16/16 11:18 White Blood Count 4.3x10^3/uL (4.0-11.0) Red Blood Count 3.67x10^6/uL (4.30-5.70) Hemoglobin 11.8g/dL (13.0-17.5) Hematocrit 35.0% (39.0-53.0) Mean Corpuscular Volume 95fL (79-100) Mean Corpuscular Hemoglobin 32pg (25-35) Mean Corpuscular Hemoglobin Concent 34g/dL (31-37) Red Cell Distribution Width 13.6% (11.5-14.5) Platelet Count 168x10^3/uL (140-400) Sodium Level 138mmol/L (136-145) Potassium Level 4.2mmol/L (3.5-5.1) Chloride Level 105mmol/L (98-107) Carbon Dioxide Level 24mmol/L (21-32) Anion Gap 9 (6-14) Blood Urea Nitrogen 16mg/dL (8-26) Creatinine 1.1mg/dL (0.7-1.3) Estimated GFR (Cockcroft-Gault) 66.0 Glucose Level 234mg/dL (70-99) Calcium Level 7.7mg/dL (8.5-10.1) Glucose (Fingerstick) 218mg/dL (70-99) 169mg/dL (70-99) Problem List Problems Medical Problems: (1) Pancreatitis Status: Acute Problems: STEFAN TAYLOR MD Sep 16, 2016 11:30
[2016-09-16] MEDS ORDERED: EPHEDRINE PF IN SALINE 50 MG/5 ML DISP.SYRIN. IV ONE (11:50)
[2016-09-16] MEDS ORDERED: NEOSTIGMINE METHYLSULFATE 5 MG/5 ML SYRINGE. ONE (12:11)
[2016-09-16] MEDS ORDERED: PHENYLEPHRINE in 0.9% NACL PF 1 MG/10 ML DISP.SYRIN. IV ONE (12:11)
[2016-09-16] MEDS ORDERED: GLYCOPYRROLATE 1 MG/5 ML VIAL. ONE (12:11)
[2016-09-16] MEDS ORDERED: DESFLURANE 61 TO 120 MINUTES IH ONE (12:50)
--- NOTE | 2016-09-16 13:05 | RAD ---
Intraoperative cholangiogram History: Laparoscopic cholecystectomy. Comparison: None. Findings: Total fluoroscopic time was 2.2 minutes. A single spot fluoroscopic image of the right upper quadrant was obtained. There appears to be present of extraluminal contrast material. Cystic duct was cannulated with surgeon. There is opacification of the cystic duct and the common bile duct. A small portion of the common hepatic duct is also seen. Neither the inferior aspect of the common bile duct nor the duodenal sweep is included in the [id number]. The visualized portions of the biliary ducts without evidence of filling defect to suggest choledocholithiasis, although examination is limited. Impression: Significantly limited examination. No evidence of choledocholithiasis in the superior common bile duct.
[2016-09-16] MEDS ORDERED: 0.9 % SODIUM CHLORIDE 10 ML DISP.SYRIN. IV PRN (13:15)
[2016-09-16] MEDS ORDERED: DEXTROSE 50% 25 GM / 50ML DISP.SYRIN. IV PRN (13:15)
[2016-09-16] MEDS ORDERED: KETOROLAC TROMETHAMINE 30 MG/ML SYRINGE. IV PRN (13:15)
[2016-09-16] MEDS ORDERED: HYDROCODONE/APAP 5/325MG TABLET. PO PRN (13:15)
--- NOTE | 2016-09-16 13:20 | PDOC ---
BRIEF OPERATIVE NOTE Pre-Op Diagnosis Gallstone pancreatitis Post-Op Diagnosis same Procedure Performed Lap aurora with grams Surgeon Maggy Anesthesia Type: General, Local Blood Loss 50 IV Fluid 500 Specimens Obtained GB Findings distended GB Complications none Additional Remarks [id number] STEFAN TAYLOR MD Sep 16, 2016 13:20
[2016-09-16] MEDS: ENOXAPARIN 40 MG/0.4 ML DISP.SYRIN. SQ SCH (15:02)
[2016-09-16] MEDS: DOCUSATE SODIUM 100 MG CAPSULE PO SCH ×2 (15:02→20:34)
--- NOTE | 2016-09-16 17:57 | OP ---
DATE OF SURGERY: 09/16/2016 REFERRING PHYSICIANS: Dr. Percy Vallejo, Dr. Ady Arriaza, Dr. Alexandria Roblero. Thank you for the consult. PREOPERATIVE DIAGNOSIS: Gallstone pancreatitis. POSTOPERATIVE DIAGNOSES: Gallstone pancreatitis. PROCEDURES: Laparoscopic cholecystectomy with intraoperative cholangiogram. SURGEON: Murphy vargas MD ESTIMATED BLOOD LOSS: 50 mL. FLUIDS: 500 mL. COMPLICATIONS: None. FINDINGS: Distended gallbladder, multiple gallstones, normal appearing intraoperative cholangiogram. INDICATIONS: A 71-year-old male presents with complaints of epigastric abdominal pain. Imaging and labs are consistent with gallstone pancreatitis. Subsequently, it was felt patient best be served by laparoscopic cholecystectomy with intraoperative cholangiogram. The patient and patient's family were informed of the risks, benefits, alternatives to procedure, risks including but not limited to bleeding, infection, damage to surrounding structures, risk of anesthesia, risk of an open procedure. The patient and patient's family appeared to understand and their insightful questions were answered and they agreed to proceed. DESCRIPTION OF PROCEDURE: After obtaining informed consent, the patient was taken to operating room, induced under general endotracheal anesthetic. The patient was prepped and draped in usual fashion in the anterior abdominal wall. A 0.5% Marcaine with epinephrine was injected in the supraumbilical area. Incision was made using 15 blade scalpel. A 5 mm nonbladed trocar was introduced in the abdominal cavity under direct vision of the laparoscope. Pneumoperitoneum was established. Additional 12 ports were placed in the epigastrium, another 5 mm port was placed in the right upper quadrant, all under direct vision of the laparoscope. The abdominal cavity was explored. There were some benign adhesions in the lower abdomen consistent with the patient's previous history of surgery, of appendectomy. The viscera looks otherwise normal in appearance. There is no evidence of trocar injury. The liver was grossly normal in appearance. The gallbladder was very distended and difficult to grasp. An aspiration needle was used to aspirate off dark bile as well as gallstones. There were adhesions to the lower part of the gallbladder. Circumferential dissection was performed of the gallbladder at the cystic duct infundibulum junction. Critical view was obtained. This demonstrated cystic duct and cystic artery as the only structures going to the gallbladder and the cystic artery was anterior and this was divided between clips. Clips were placed on the cystic duct infundibulum junction. Incision was made in the cystic duct using EndoShears. Cholangiogram catheter was obtained. Cholangiogram demonstrated long cystic duct. No evidence of common bile duct stone and free extravasation into the duodenum. The images of the extravasation of duodenum were not transmitted to Radiology and the report reflects this. There were images that did demonstrate this. There was extensive extravasation from the cystic duct as the cystic duct was patulous and difficult to completely seal. The very small portion of the proper hepatic duct was visualized, but full demonstration of the hepatic bile duct system was difficult secondary to the extravasation despite multiple attempts and a large amount of contrast. Subsequently, the cholangiogram catheter was removed. Multiple clips were placed on the cystic duct stump ,including Hem-o-nadege and the cystic duct was divided. Gallbladder was taken off the gallbladder fossa sharply using electrocautery. The gallbladder was placed in EndoCatch bag and brought out through the epigastric port and passed off the field and sent to pathology for evaluation. The abdominal cavity was copiously irrigated with normal saline solution. There was no evidence of bleeding or bile leak at the time of closure. All ports removed under direct vision of laparoscope. There was no evidence of port site bleeding. Fascial defect in the epigastrium was reapproximated using interrupted 0 Vicryl stitch using Endo Close. All skin incisions were approximated with multiple interrupted 4-0 Monocryl in subcuticular fashion. Sterile dressing was placed over all wounds. The patient tolerated procedure well and was discharged to recovery room in stable condition. All counts correct. There were no immediate complications. MURPHY TAYLOR MD DR: KURT/brandyn JOB#: [id number] / [id number] CHRISTOPHER
[2016-09-16] MEDS ORDERED: INSULIN DETEMIR 300 UNITS/3 ML INSULN.PEN. SQ SCH (21:00)
[2016-09-16] MEDS ORDERED: INSULIN ASPART 300 UNITS/3 ML INSULN.PEN SQ ONE (21:30)
[2016-09-17 02:33] VITALS: BP 140/52
[2016-09-17] MEDS: POTASSIUM CL 20MEQ-0.45% NACL 1,000 ML IV SCH (03:31)
[2016-09-17 07:00] VITALS: BP 97/58
[2016-09-17] MEDS: CARVEDILOL 12.5 MG TABLET PO SCH (08:00)
[2016-09-17] MEDS: AMLODIPINE BESYLATE 5 MG TABLET PO SCH (09:00)
[2016-09-17] MEDS: LOSARTAN POTASSIUM 50 MG TABLET. PO SCH (09:00)
[2016-09-17] MEDS: CEFTRIAXONE SODIUM 1 GM in IV NORMAL SALINE 50ML 50 ML IV SCH (09:17)
[2016-09-17] MEDS: DOCUSATE SODIUM 100 MG CAPSULE PO SCH (09:18)
[2016-09-17] MEDS: FUROSEMIDE 20 MG TABLET PO SCH (09:18)
[2016-09-17] MEDS: DONEPEZIL HCL 10 MG TABLET. PO SCH (09:18)
[2016-09-17] MEDS: INSULIN ASPART 300 UNITS/3 ML INSULN.PEN SQ SCH ×2 (09:23→12:26)
[2016-09-17 11:00] VITALS: BP 134/53
[2016-09-17] MEDS ORDERED: HYDR-2666 PO (11:38)
[2016-09-17] MEDS: ENOXAPARIN 40 MG/0.4 ML DISP.SYRIN. SQ SCH (12:29)
--- NOTE | 2016-09-17 12:50 | PDOC ---
SURGICAL PROGRESS NOTE Subjective Pt reports feeling better, looks brighter Vital Signs Vital Signs Date Time Temp Pulse Resp B/P Pulse Ox O2 Delivery O2 Flow Rate FiO2 09/17/16 11:00 97.7 53 18 134/53 95 Room Air 97.7 09/16/16 21:34 2.0 I&O Intake and Output 09/17/16 07:00 Intake Total 1000 ml Output Total 625 ml Balance 375 ml IV Total 1000 ml Output Urine Total 625 ml # Voids 3 # Bowel Movements 3 General: Alert, Cooperative, No acute distress Abdomen: Soft Labs Laboratory Tests Test 09/15/16 16:29 09/15/16 21:18 09/16/16 01:29 09/16/16 04:20 Glucose (Fingerstick) 283mg/dL (70-99) 300mg/dL (70-99) 268mg/dL (70-99) White Blood Count 4.3x10^3/uL (4.0-11.0) Red Blood Count 3.67x10^6/uL (4.30-5.70) Hemoglobin 11.8g/dL (13.0-17.5) Hematocrit 35.0% (39.0-53.0) Mean Corpuscular Volume 95fL (79-100) Mean Corpuscular Hemoglobin 32pg (25-35) Mean Corpuscular Hemoglobin Concent 34g/dL (31-37) Red Cell Distribution Width 13.6% (11.5-14.5) Platelet Count 168x10^3/uL (140-400) Sodium Level 138mmol/L (136-145) Potassium Level 4.2mmol/L (3.5-5.1) Chloride Level 105mmol/L (98-107) Carbon Dioxide Level 24mmol/L (21-32) Anion Gap 9 (6-14) Blood Urea Nitrogen 16mg/dL (8-26) Creatinine 1.1mg/dL (0.7-1.3) Estimated GFR (Cockcroft-Gault) 66.0 Glucose Level 234mg/dL (70-99) Calcium Level 7.7mg/dL (8.5-10.1) Test 09/16/16 08:22 09/16/16 11:18 09/16/16 13:44 09/16/16 16:53 Glucose (Fingerstick) 218mg/dL (70-99) 169mg/dL (70-99) 267mg/dL (70-99) 254mg/dL (70-99) Test 09/16/16 21:02 09/17/16 07:42 09/17/16 11:21 Glucose (Fingerstick) 483mg/dL (70-99) 198mg/dL (70-99) 256mg/dL (70-99) Laboratory Tests Test 09/16/16 13:44 09/16/16 16:53 09/16/16 21:02 09/17/16 07:42 Glucose (Fingerstick) 267mg/dL (70-99) 254mg/dL (70-99) 483mg/dL (70-99) 198mg/dL (70-99) Test 09/17/16 11:21 Glucose (Fingerstick) 256mg/dL (70-99) Problem List Problems Medical Problems: (1) Gallstone pancreatitis Status: Acute (2) Pancreatitis Status: Acute Assessment/Plan s/p aspen FULTON work towards d/c if cleared by primary, maybe tomorrow Problems: STEFAN TAYLOR MD Sep 17, 2016 12:50
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
--- NOTE | 2016-09-19 16:02 | PATHOLOGY ---
PATHOLOGY REPORT * * * * * * * * FINAL DIAGNOSIS: Gallbladder, laparoscopic cholecystectomy: - Cholelithiasis. - Chronic cholecystitis. COMMENT: There is no evidence of malignancy. (YAM:; d/t: 09/19/16) REPORT ELECTRONICALLY SIGNED BY: Gurvinder Quintanilla M.D. DATE/TIME: 09/19/2016 15:37 * * * * * * * * GROSS PATHOLOGY: Received in formalin labeled "Pola Lugo-gallbladder and contents," is a 7.5 x 3.2 x 1.3 cm, disrupted gallbladder with pink-henderson to henderson-green, slightly hemorrhagic, and wrinkled serosal surfaces. Opening the gallbladder reveals dark green and granular mucosa and an average wall thickness of 0.1 cm. Multiple black, friable, and multinodular calculi ranging from 0.2-0.5 cm in greatest dimension are present and no masses are noted grossly. College Director sections from the body and fundus are submitted along with the proximal margin in cassette A1. (TTL; 09/16/2016) INITIAL CPT CODE(S): A; 79306 Professional services performed [place] [facility] [address] Technical services performed by [facility] at [address] [place] [address]. SPECIMEN(S) RECEIVED: A.Gallbladder and contents CLINICAL HISTORY: Acute cholecystitis, pancreatitis PATIENT: POLA LUGO /AGE: 11 1945 (Age: 71) PATIENT #: [id number] ALT CASE #: SPECIMEN COLLECTION DATE: 09/16/2016 SPECIMEN RECEIVED DATE: 09/16/2016 [facility] - [address] [place] [address] - PHONE: [phone] * * * END OF REPORT * * *
== END 2016-09-17 14:45 | disposition home or self-care (01) | DRG 417 ==
LOC: ER 03:05 → 4 NORTH 05:14
PROVIDERS: ADMIT Family Medicine; ATTEND Family Medicine
PROC: BF141ZZ Fluoroscopy of Gallbladder, Bile Ducts and Pancreatic Ducts using Low Osmolar Contrast (ICD-10-PCS; 2016-09-16)
PROC: 0FT44ZZ Resection of Gallbladder, Percutaneous Endoscopic Approach (ICD-10-PCS; principal; 2016-09-16 11:30)
DX: K80.00 Calculus of gallbladder with acute cholecystitis without obstruction (principal); K85.10 Biliary acute pancreatitis without necrosis or infection; I50.30 Unspecified diastolic (congestive) heart failure; I11.0 Hypertensive heart disease with heart failure; Z88.8 Allergy status to other drugs, medicaments and biological substances; E11.9 Type 2 diabetes mellitus without complications; E78.00 Pure hypercholesterolemia, unspecified; E78.5 Hyperlipidemia, unspecified; I25.10 Atherosclerotic heart disease of native coronary artery without angina pectoris; I73.9 Peripheral vascular disease, unspecified; K59.00 Constipation, unspecified; K66.0 Peritoneal adhesions (postprocedural) (postinfection); Z79.4 Long term (current) use of insulin; Z86.73 Personal history of transient ischemic attack (TIA), and cerebral infarction without residual deficits; Z87.891 Personal history of nicotine dependence; Z89.511 Acquired absence of right leg below knee; Z95.1 Presence of aortocoronary bypass graft; Z90.49 Acquired absence of other specified parts of digestive tract; Z88.0 Allergy status to penicillin
CPT/HCPCS: 36415; 71010; 74300; 76705; 80048; 80053; 80076; 82947; 83690; 83880; 84484; 85007; 85027; 88304; 93005; C1782; J0690; J0696; J1100; J1650; J1815; J1885; J2270; J2370; J2405; J2704; J2710; J3010; J3490; J7030; J7120; Q9967; 99285-25

== ENCOUNTER 2017-10-31 05:00 | Emergency (ER) | payer MEDICARE, OTHER | END 2017-10-31 06:45 | disposition home or self-care (01) | LOC: ER 05:00 | DX: S40.012A Contusion of left shoulder, initial encounter (principal); M25.521 Pain in right elbow; I25.10 Atherosclerotic heart disease of native coronary artery without angina pectoris; E11.51 Type 2 diabetes mellitus with diabetic peripheral angiopathy without gangrene; E78.00 Pure hypercholesterolemia, unspecified; I25.2 Old myocardial infarction; I11.9 Hypertensive heart disease without heart failure; E78.5 Hyperlipidemia, unspecified; Z88.8 Allergy status to other drugs, medicaments and biological substances; Z86.73 Personal history of transient ischemic attack (TIA), and cerebral infarction without residual deficits; Z90.49 Acquired absence of other specified parts of digestive tract; Z89.511 Acquired absence of right leg below knee; Z88.0 Allergy status to penicillin; W07.XXXA Fall from chair, initial encounter; Y93.89 Activity, other specified; Y92.89 Other specified places as the place of occurrence of the external cause; Y99.8 Other external cause status | CPT/HCPCS: 73030; 73080; 99284 ==

== ENCOUNTER → 2018-02-23 | Outpatient (CLI) | payer MEDICARE, OTHER ==
[2018-02-26] MEDS: REGADENOSON 0.4 MG/5 ML DISP.SYRIN. IV (08:32)
== END | disposition home or self-care (01) ==
LOC: NM 10:41
DX: I25.709 Atherosclerosis of coronary artery bypass graft(s), unspecified, with unspecified angina pectoris (principal); I13.0 Hypertensive heart and chronic kidney disease with heart failure and stage 1 through stage 4 chronic kidney disease, or unspecified chronic kidney disease; E11.22 Type 2 diabetes mellitus with diabetic chronic kidney disease; I50.9 Heart failure, unspecified; N18.9 Chronic kidney disease, unspecified; E78.5 Hyperlipidemia, unspecified; E78.00 Pure hypercholesterolemia, unspecified; E55.9 Vitamin D deficiency, unspecified
CPT/HCPCS: 78452; 93017; 96374; 96375; 96376; A9500; J2785

== ENCOUNTER 2018-03-21 10:11 | Emergency (ER) | payer MEDICARE, OTHER ==
[2018-03-21 10:35] LABS: ADD MAN DIFF? NO
[2018-03-21 10:38] LABS: BASO # 0.1 x10^3/uL (0.0-0.2); BASO % 1 % (0-3); EOS # 0.1 x10^3/uL (0.0-0.7); EOS % 2 % (0-3); HEMATOCRIT 35.4 % (39.0-53.0); HEMOGLOBIN 12.2 g/dL (13.0-17.5); LYMPH # 0.9 x10^3/uL (1.0-4.8); LYMPH % 14 % (24-48); MEAN CORPUSCULAR HEMOGLOBIN 32 pg (25-35); MEAN CORPUSCULAR HGB CONC 35 g/dL (31-37); MEAN CORPUSCULAR VOLUME 94 fL (79-100); MONO # 0.6 x10^3/uL (0.0-1.1); MONO % 9 % (0-9); NEUT # 4.9 x10^3uL (1.8-7.7); NEUT % 74 % (31-73); PLATELET COUNT 228 x10^3/uL (140-400); RED BLOOD COUNT 3.79 x10^6/uL (4.30-5.70); RED CELL DISTRIBUTION WIDTH 13.8 % (11.5-14.5); WHITE BLOOD COUNT 6.6 x10^3/uL (4.0-11.0)
[2018-03-21 10:47] LABS: BILIRUBIN,URINE NEGATIVE (NEG); CLARITY,URINE CLEAR; COLOR,URINE YELLOW; GLUCOSE,URINE 500 mg/dL (NEG); NITRITE,URINE NEGATIVE (NEG); PH,URINE 5.5; PROTEIN,URINE NEGATIVE (NEG-TRACE); UROBILINOGEN,URINE 0.2 mg/dL (0.2 mg/dL)
[2018-03-21 10:48] LABS: ANION GAP 5 (6-14); BLOOD UREA NITROGEN 21 mg/dL (8-26); BUN/CREATININE RATIO 18 (6-20); CALCIUM 8.9 mg/dL (8.5-10.1); CARBON DIOXIDE 30 mmol/L (21-32); CHLORIDE 100 mmol/L (98-107); CREATININE 1.2 mg/dL (0.7-1.3); GFR 59.5; GLUCOSE 265 mg/dL (70-99); POTASSIUM 3.9 mmol/L (3.5-5.1); SODIUM 135 mmol/L (136-145)
[2018-03-21 10:50] LABS: PROTHROMBIN TIME PATIENT 12.6 SEC (11.7-14.0)
[2018-03-21 10:55] LABS: ALBUMIN 3.3 g/dL (3.4-5.0); ALBUMIN/GLOBULIN RATIO 0.9 (1.0-1.7); ALK PHOS 91 U/L (46-116); ALT (SGPT) 17 U/L (16-63); AST (SGOT) 14 U/L (15-37); MAGNESIUM 1.8 mg/dL (1.8-2.4); TOTAL BILIRUBIN 0.5 mg/dL (0.2-1.0); TOTAL PROTEIN 6.9 g/dL (6.4-8.2)
[2018-03-21 10:57] LABS: TROPONINI < 0.017 ng/mL (0.000-0.055)
[2018-03-21 11:01] LABS: NT-PRO BNP 170 pg/mL (0-124)
[2018-03-21 11:18] LABS: BACTERIA,URINE FEW /HPF (0-FEW); RBC,URINE OCC /HPF (0-2); SQUAMOUS EPITHELIAL CELL,UR FEW /LPF
== END 2018-03-21 11:58 | disposition home or self-care (01) ==
LOC: ER 10:11
DX: F03.90 Unspecified dementia, unspecified severity, without behavioral disturbance, psychotic disturbance, mood disturbance, and anxiety (principal); E11.9 Type 2 diabetes mellitus without complications; I10 Essential (primary) hypertension; Z86.73 Personal history of transient ischemic attack (TIA), and cerebral infarction without residual deficits; Z95.0 Presence of cardiac pacemaker; Z88.0 Allergy status to penicillin; Z88.1 Allergy status to other antibiotic agents; Z88.8 Allergy status to other drugs, medicaments and biological substances
CPT/HCPCS: 36415; 70450; 71045; 80053; 81001; 83735; 83880; 84484; 85025; 85610; 93005; 99285-25

== ENCOUNTER 2018-05-28 09:44 | Inpatient (IN) | payer MEDICARE, OTHER ==
[~2018-05-28] VITALS: Ht 160 cm; Wt 70.5 kg
[~2018-05-28 09:44] MED LIST changes: -ASPI325T4 PO; +ASPI325T8 PO; +ATOR40TA59 PO; +DONE10TA7 PO; +DULO30CA2 PO; +EZET10TA18 PO; -EZET10TA3 PO; +GLIP10TA13 PO; +HYDR-2758 PO; +INSU100I13 SQ; +INSU100I17 SQ; +MEMA10TA PO; +NITR0.4T22 SL; -NITR0.4T6 SL; +OMEG1CAP6 PO; -POTA10CA PO; +POTA10TA12 PO; -UBID200C4 PO; +UBID200C7 PO; +VITA1TAB31 PO
--- NOTE | 2018-05-28 10:11 | PHYS DOC ---
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 Patient denies any hematemesis or melena. Denies any chest pain or shortness of breath. PCP Dr. Jaz Mao Review of Systems Review of Systems Constitutional: Denies fever or chills [] Eyes: Denies change in visual acuity, redness, or eye pain [] HENT: Denies nasal congestion or sore throat [] Respiratory: Denies cough or shortness of breath [] Cardiovascular: No additional information not addressed in HPI [] GI: Reports generalized abdominal pain, nausea vomiting and diarrhea : Denies dysuria or hematuria [] Musculoskeletal: Denies back pain or joint pain [] Integument: Denies rash or skin lesions [] Neurologic: Denies headache, focal weakness or sensory changes [] All other systems were reviewed and found to be within normal limits, except as documented in this note. Current Medications Current Medications Current Medications Medications (Trade) Dose Ordered Sig/Sylwia Start Time Stop Time Status Last Admin Dose Admin Aspirin (Katey Aspirin) 325 mg 1X ONCE 05/28/18 11:45 05/28/18 11:46 DC 05/28/18 12:17 325 MG Info (CONTRAST GIVEN -- Rx MONITORING) 1 each PRN DAILY PRN 05/28/18 11:15 05/30/18 11:14 Iohexol (Omnipaque 240 Mg/ml) 30 ml 1X ONCE 05/28/18 11:15 05/28/18 11:16 DC Iohexol (Omnipaque 300 Mg/ml) 75 ml 1X ONCE 05/28/18 11:15 05/28/18 11:16 DC Ondansetron HCl (Zofran) 4 mg 1X ONCE 05/28/18 10:15 05/28/18 10:16 DC 05/28/18 10:20 4 MG Pantoprazole Sodium (PROTONIX VIAL for IV PUSH) 40 mg 1X ONCE 05/28/18 10:15 05/28/18 10:16 DC 05/28/18 10:20 40 MG Sodium Chloride 1,000 ml @ 1,000 mls/hr 1X ONCE 05/28/18 10:15 05/28/18 11:14 DC 05/28/18 10:20 1,000 MLS/HR Allergies Allergies Allergies Coded Allergies Type Severity Reaction Last Updated Verified Penicillins Allergy Intermediate 09/16/16 Yes fenofibrate Allergy Intermediate 09/16/16 Yes niacin Allergy Intermediate 09/16/16 Yes simvastatin Allergy Intermediate 09/16/16 Yes Physical Exam Physical Exam Constitutional: Well developed, well nourished, no acute distress, non-toxic appearance. [] HENT: Normocephalic, atraumatic, bilateral external ears normal, oropharynx moist, no oral exudates, nose normal. [] Eyes: PERRLA, EOMI, conjunctiva normal, no discharge. [] Neck: Normal range of motion, no tenderness, supple, no stridor. [] Cardiovascular: Heart rate regular rhythm, no murmur [] Lungs & Thorax: Bilateral breath sounds clear to auscultation [] Abdomen: Bowel sounds normal, soft, no tenderness, no masses, no pulsatile masses. [] Skin: Warm, dry, no erythema, no rash. [] Back: No tenderness, no CVA tenderness. [] Extremities: No tenderness, no cyanosis, no clubbing, ROM intact, no edema. Right BKA Neurologic: Alert and oriented X 3, normal motor function, normal sensory function, no focal deficits noted. [] Psychologic: Affect normal, judgement normal, mood normal. [] Current Patient Data Vital Signs Vital Signs Date Time Temp Pulse Resp B/P (MAP) Pulse Ox O2 Delivery O2 Flow Rate FiO2 05/28/18 12:01 63 144/65 (91) 95 05/28/18 10:00 97.6 18 Room Air 97.6 Lab Values Laboratory Tests Test 05/28/18 10:05 05/28/18 11:40 White Blood Count 13.8 x10^3/uL (4.0-11.0) H Red Blood Count 3.69 x10^6/uL (4.30-5.70) L Hemoglobin 11.6 g/dL (13.0-17.5) L Hematocrit 34.6 % (39.0-53.0) L Mean Corpuscular Volume 94 fL (79-100) Mean Corpuscular Hemoglobin 32 pg (25-35) Mean Corpuscular Hemoglobin Concent 34 g/dL (31-37) Red Cell Distribution Width 13.7 % (11.5-14.5) Platelet Count 249 x10^3/uL (140-400) Neutrophils (%) (Auto) 87 % (31-73) H Lymphocytes (%) (Auto) 5 % (24-48) L Monocytes (%) (Auto) 8 % (0-9) Eosinophils (%) (Auto) 0 % (0-3) Basophils (%) (Auto) 0 % (0-3) Neutrophils # (Auto) 12.0 x10^3uL (1.8-7.7) H Lymphocytes # (Auto) 0.7 x10^3/uL (1.0-4.8) L Monocytes # (Auto) 1.1 x10^3/uL (0.0-1.1) Eosinophils # (Auto) 0.1 x10^3/uL (0.0-0.7) Basophils # (Auto) 0.0 x10^3/uL (0.0-0.2) Segmented Neutrophils % 86 % (35-66) H Band Neutrophils % 11 % (0-9) H Lymphocytes % 1 % (24-48) L Monocytes % 2 % (0-10) Toxic Vacuolation Slight Dohle Bodies Present Platelet Estimate Adequate (ADEQUATE) Sodium Level 143 mmol/L (136-145) Potassium Level 3.7 mmol/L (3.5-5.1) Chloride Level 104 mmol/L (98-107) Carbon Dioxide Level 27 mmol/L (21-32) Anion Gap 12 (6-14) Blood Urea Nitrogen 34 mg/dL (8-26) H Creatinine 2.9 mg/dL (0.7-1.3) H Estimated GFR (Cockcroft-Gault) 21.5 BUN/Creatinine Ratio 12 (6-20) Glucose Level 161 mg/dL (70-99) H Calcium Level 9.3 mg/dL (8.5-10.1) Magnesium Level 2.1 mg/dL (1.8-2.4) Total Bilirubin 0.7 mg/dL (0.2-1.0) Aspartate Amino Transferase (AST) 22 U/L (15-37) Alanine Aminotransferase (ALT) 17 U/L (16-63) Alkaline Phosphatase 77 U/L (46-116) Troponin I Quantitative 0.303 ng/mL (0.000-0.055) CI-Ezu-Z-Type Natriuretic Peptide 1043 pg/mL (0-124) H Total Protein 6.8 g/dL (6.4-8.2) Albumin 3.2 g/dL (3.4-5.0) L Albumin/Globulin Ratio 0.9 (1.0-1.7) L Lipase 65 U/L (73-393) L Urine Collection Type Unknown Urine Color Yellow Urine Clarity Clear Urine pH 5.5 Urine Specific [place] 1.010 Urine Protein Negative mg/dL (NEG-TRACE) Urine Glucose (UA) Negative mg/dL (NEG) Urine Ketones (Stick) Negative mg/dL (NEG) Urine Blood Negative (NEG) Urine Nitrite Negative (NEG) Urine Bilirubin Negative (NEG) Urine Urobilinogen Dipstick 0.2 mg/dL (0.2 mg/dL) Urine Leukocyte Esterase Negative (NEG) Urine RBC 0 /HPF (0-2) Urine WBC 0 /HPF (0-4) Urine Squamous Epithelial Cells Occ /LPF Urine Bacteria 0 /HPF (0-FEW) Laboratory Tests 05/28/18 10:05 Laboratory Tests 05/28/18 10:05 EKG EKG 10:[address] Beatty sinus rhythm HR 78 no STEMI[] Radiology/Procedures Radiology/Procedures []PROCEDURE: CT ABDOMEN PELVIS WO CONTRAST CT abdomen pelvis without intravenous contrast History: Abdominal pain. Nausea and vomiting with diarrhea. Comparison: CT abdomen pelvis March 02, 2018. Technique: CT of the abdomen and pelvis was performed without intravenous or oral contrast. No intravenous contrast was administered secondary to impaired renal function. Exposure: One or more of the following individualized dose reduction techniques were utilized for this examination: 1. Automated exposure control 2. Adjustment of the mA and/or kV according to patient size 3. Use of iterative reconstruction technique Findings: Evaluation of solid organs is limited by lack of intravenous contrast. Evaluation of enteric structures may be limited by lack of oral contrast. Images of lower chest demonstrate patchy, somewhat nodular consolidation involving the visualized lingula and left lower lobe. Liver, spleen, pancreas, and bilateral adrenal glands are unremarkable. Gallbladder is absent. The interpolar region of right kidney demonstrates 2 mm nonobstructive nephrolith. Both ureters are free of stone or obstruction. Urinary bladder is unremarkable. No bowel obstruction or inflammation is appreciated. Appendix is not visualized, compatible with provided history of appendectomy. Large band of subcutaneous soft tissue thickening can be seen involving the ventral lower abdomen, similar to previous study. Impression: 1. No acute abnormality identified in the abdomen or pelvis. 2. Nodular densities are seen involving the visualized left lower lung field, could represent nonspecific airspace disease such as pneumonia. Recommend clinical correlation. Electronically signed by: Quinn Rico MD (05/28/2018 11:36 AM) [place] [id number] DICTATED and SIGNED BY: QUINN RICO MD DATE: 05/28/18 1130 Course & Med Decision Making Course & Med Decision Making Pertinent Labs and Imaging studies reviewed. (See chart for details) This is a 72-year-old male patient who presents today with generalized abdominal pain, nausea vomiting and diarrhea for three days. CBC with a WBC of 13.8, hemoglobin 11.6, hematocrit 34.6, CMP with creatinine of 2.9, he went 34, unknown if patient has history of renal failure. Patient has dementia. Troponin 0.303. Patient has no chest pain, negative EKG. CT of the abdomen and pelvic is negative for any acute findings. 12:46 consulted with [facility] cardiology OBGYN HOSPITALIST PHYSICIAN 12:[address] Benavides -renal ultrasound ordered 12:[address] Garcia who accepted patient for admission. Staff Physician Addendum: I was working in the ER during the course of this patient's visit. I was available for consultation as needed, but I was not directly involved in the care of this patient. Dragon Disclaimer Dragon Disclaimer This electronic medical record was generated, in whole or in part, using a voice recognition dictation system. Departure Departure Impression: Primary Impression: Elevated troponin Additional Impressions: ARF (acute renal failure) Abdominal pain Disposition: ADMITTED INPATIENT Condition: STABLE Referrals: JAZ MAO MD (PCP) Problem Qualifiers Additional Impressions: ARF (acute renal failure) Acute renal failure type: unspecified Qualified Codes: N17.9 - Acute kidney failure, unspecified Abdominal pain Abdominal location: unspecified location Qualified Codes: R10.9 - Unspecified abdominal pain EVY SHARMA APRN May 28, 2018 10:11 ROMÁN BEATTY MD May 30, 2018 06:20
[2018-05-28] MEDS ORDERED: PANTOPRAZOLE IV PUSH 40 MG VIAL. IVP ONE (10:15)
[2018-05-28] MEDS ORDERED: IV NORMAL SALINE 1000ML BAG 1,000 ML IV ONE ×2 (10:15→14:15)
[2018-05-28] MEDS ORDERED: ONDANSETRON PF 4 MG/2 ML VIAL. IV ONE (10:15)
[2018-05-28 10:36] LABS: BASO % 0 % (0-3); EOS # 0.1 x10^3/uL (0.0-0.7); EOS % 0 % (0-3); HEMATOCRIT 34.6 % (39.0-53.0); HEMOGLOBIN 11.6 g/dL (13.0-17.5); LYMPH # 0.7 x10^3/uL (1.0-4.8); LYMPH % 5 % (24-48); MEAN CORPUSCULAR HEMOGLOBIN 32 pg (25-35); MEAN CORPUSCULAR HGB CONC 34 g/dL (31-37); MEAN CORPUSCULAR VOLUME 94 fL (79-100); MONO # 1.1 x10^3/uL (0.0-1.1); MONO % 8 % (0-9); NEUT % 87 % (31-73); PLATELET COUNT 249 x10^3/uL (140-400); RED BLOOD COUNT 3.69 x10^6/uL (4.30-5.70); RED CELL DISTRIBUTION WIDTH 13.7 % (11.5-14.5); WHITE BLOOD COUNT 13.8 x10^3/uL (4.0-11.0)
[2018-05-28 10:52] LABS: CALCIUM 9.3 mg/dL (8.5-10.1); CREATININE 2.9 mg/dL (0.7-1.3); GFR 21.5; POTASSIUM 3.7 mmol/L (3.5-5.1)
[2018-05-28 10:59] LABS: ALBUMIN 3.2 g/dL (3.4-5.0); ALBUMIN/GLOBULIN RATIO 0.9 (1.0-1.7); TOTAL BILIRUBIN 0.7 mg/dL (0.2-1.0); TOTAL PROTEIN 6.8 g/dL (6.4-8.2)
[2018-05-28] MEDS ORDERED: CONTRAST GIVEN. MC PRN (11:15)
[2018-05-28] MEDS ORDERED: IOHEXOL 240 MG/ML 50ML VIAL. PO ONE (11:15)
[2018-05-28] MEDS ORDERED: IOHEXOL 300 MG/ML 100ML VIAL. IV ONE (11:15)
[2018-05-28 11:28] LABS: % BANDS 11 % (0-9); % LYMPHS 1 % (24-48); % MONOS 2 % (0-10); % SEGS 86 % (35-66)
[2018-05-28 11:29] LABS: PLT ESTIMATE ADEQUATE (ADEQUATE); TOXIC VACUOLATION SLIGHT
--- NOTE | 2018-05-28 11:39 | RAD ---
CT abdomen pelvis without intravenous contrast History: Abdominal pain. Nausea and vomiting with diarrhea. Comparison: CT abdomen pelvis March 02, 2018. Technique: CT of the abdomen and pelvis was performed without intravenous or oral contrast. No intravenous contrast was administered secondary to impaired renal function. Exposure: One or more of the following individualized dose reduction techniques were utilized for this examination: 1. Automated exposure control 2. Adjustment of the mA and/or kV according to patient size 3. Use of iterative reconstruction technique Findings: Evaluation of solid organs is limited by lack of intravenous contrast. Evaluation of enteric structures may be limited by lack of oral contrast. Images of lower chest demonstrate patchy, somewhat nodular consolidation involving the visualized lingula and left lower lobe. Liver, spleen, pancreas, and bilateral adrenal glands are unremarkable. Gallbladder is absent. The interpolar region of right kidney demonstrates 2 mm nonobstructive nephrolith. Both ureters are free of stone or obstruction. Urinary bladder is unremarkable. No bowel obstruction or inflammation is appreciated. Appendix is not visualized, compatible with provided history of appendectomy. Large band of subcutaneous soft tissue thickening can be seen involving the ventral lower abdomen, similar to previous study. Impression: 1. No acute abnormality identified in the abdomen or pelvis. 2. Nodular densities are seen involving the visualized left lower lung field, could represent nonspecific airspace disease such as pneumonia. Recommend clinical correlation. Electronically signed by: Quinn Devi MD (05/28/2018 11:36 AM) [place] [id number]
[2018-05-28] MEDS ORDERED: ASPIRIN 325 MG TABLET PO ONE (11:45)
[2018-05-28 11:57] LABS: BILIRUBIN,URINE NEGATIVE (NEG); CLARITY,URINE CLEAR; COLOR,URINE YELLOW; NITRITE,URINE NEGATIVE (NEG); PH,URINE 5.5; PROTEIN,URINE NEGATIVE (NEG-TRACE); UROBILINOGEN,URINE 0.2 mg/dL (0.2 mg/dL)
[2018-05-28 12:07] LABS: BACTERIA,URINE 0 /HPF (0-FEW); RBC,URINE 0 /HPF (0-2); SQUAMOUS EPITHELIAL CELL,UR OCC /LPF; WBC,URINE 0 /HPF (0-4)
--- NOTE | 2018-05-28 12:33 | EKG ---
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
--- NOTE | 2018-05-28 12:51 | PDOC1 ---
History and Physical Date of Admission Date of Admission DATE: 05/28/18 TIME: 12:51 Identification/Chief Complaint Chief Complaint SEEN IN ER 72 year old male with history of diabetes type 2, hypertension, dementia, who presentED today with nausea vomiting diarrhea and slight generalized abdominal pain that began 3 days [employer]. denies any hematemesis or melena. Denies any chest pain or shortness of breath. 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, CVA X 4MO Past Surgical History: Appendectomy, Gastric Bypass, Pacemaker Additional Past Surgical Histo: defibrillator, R BKA Alcohol Use: None Drug Use: None FAMILY DIABETES Cardiovascular: CAD, CHF, HTN, [place], Hyperlipidemia, Other CENTRAL NERVOUS SYSTEM: CVA, Dementia, TIA GI: GERD Heme/Onc: No pertinent hx Hepatobiliary: No pertinent hx Psych: No pertinent hx Musculoskeletal: Osteoarthritis Infectious disease: No pertinent hx Renal/: Chronic renal insuff Endocrine: Diabetes, Other Past Surgical History Past Surgical History: Pacemaker, Appendectomy, CABG, Other Family History Family History: Alzheimer's Disease, Coronary Artery Disease, Hypertension Social History Smoke: No ALCOHOL: none Drugs: None Current Medications Current Medications Current Medications Ondansetron HCl (Zofran) 4 mg 1X ONCE IV Last administered on 05/28/18at 10:20 ; Start 05/28/18 at 10:15; Stop 05/28/18 at 10:16; Status DC Pantoprazole Sodium (PROTONIX VIAL for IV PUSH) 40 mg 1X ONCE IVP Last administered on 05/28/18at 10:20; Start 05/28/18 at 10:15; Stop 05/28/18 at 10:16 ; Status DC Sodium Chloride 1,000 ml @ 1,000 mls/hr 1X ONCE IV Last administered on at 10:20; Start 05/28/18 at 10:15; Stop 05/28/18 at 11:14; Status DC Iohexol (Omnipaque 240 Mg/ml) 30 ml 1X ONCE PO ; Start 05/28/18 at 11:15; Stop 05/28/18 at 11:16; Status DC Iohexol (Omnipaque 300 Mg/ml) 75 ml 1X ONCE IV ; Start 05/28/18 at 11:15; Stop 05/28/18 at 11:16; Status DC Info (CONTRAST GIVEN -- Rx MONITORING) 1 each PRN DAILY PRN MC SEE COMMENTS; Start 05/28/18 at 11:15; Stop 05/30/18 at 11:14 Aspirin (Katey Aspirin) 325 mg 1X ONCE PO Last administered on 05/28/18at 12:17 ; Start 05/28/18 at 11:45; Stop 05/28/18 at 11:46; Status DC Active Scripts Active Lantus Solostar (Insulin Glargine,Hum.rec.anlog) 100 Unit/1 Ml Insuln.pen 75 Units SQ QHS 30 Days Cymbalta (Duloxetine Hcl) 30 Mg Capsule.dr 30 Mg PO DAILY 30 Days Hydrocodone-Apap 5-325 (Hydrocodone Bit/Acetaminophen) 1 Each Tablet 1-2 Tab PO PRN Q6HRS PRN 5 Days Hydrocodone-Apap 5-325 (Hydrocodone Bit/Acetaminophen) 1 Each Tablet 1 Tab PO PRN Q4HRS PRN Atorvastatin Calcium 40 Mg Tablet 1 Tab PO DAILY Novolog Flexpen (Insulin Aspart) 100 Unit/1 Ml Insuln.pen 25 Unit SQ TIDAC Bentyl (Dicyclomine Hcl) 10 Mg Capsule 10 Mg PO QID PRN Reported Cyclobenzaprine Hcl 10 Mg Tablet 1 Tab PO PRN TID PRN Namenda (Memantine Hcl) 10 Mg Tablet 10 Mg PO BID D3 + K2 Dots 1,000 Units Tab (Vitamin D3/Vitamin K2) 1 Each Tab.rapdis 1 Each PO DAILY Fish Oil 1,000 Mg Capsule ([place]-3 Fatty Acids/Fish Oil) 1 Each Capsule 1 Each PO BID Donepezil Hcl 10 Mg Tablet 1 Tab PO DAILY Aggrenox 25 Mg-200 Mg Capsule (Aspirin/Dipyridamole) 1 Each Cpmp.12hr 1 Cap PO BID Cozaar (Losartan Potassium) 100 Mg Tablet 1 Tab PO DAILY Lasix (Furosemide) 20 Mg Tablet 1 Tab PO DAILY Zetia (Ezetimibe) 10 Mg Tablet 1 Tab PO DAILY Potassium Chloride 10 Meq Capsule.er 1 Cap PO DAILY Magnesium Gluconate 30 Mg Tablet 250 Mg PO Co Q-10 (Ubidecarenone) 200 Mg Capsule 200 Mg PO DAILY Allergies Allergies: Coded Allergies: Penicillins (Verified Allergy, Intermediate, 09/16/16) TOLERATES ROCEPHIN fenofibrate (Verified Allergy, Intermediate, 09/16/16) niacin (Verified Allergy, Intermediate, 09/16/16) simvastatin (Verified Allergy, Intermediate, 09/16/16) ROS Review of System Review of Systems Review of Systems Constitutional: Denies fever or chills [] Eyes: Denies change in visual acuity, redness, or eye pain [] HENT: Denies nasal congestion or sore throat [] Respiratory: Denies cough or shortness of breath [] Cardiovascular: No additional information not addressed in HPI [] GI: Reports generalized abdominal pain, nausea vomiting and diarrhea : Denies dysuria or hematuria [] Musculoskeletal: Denies back pain or joint pain [] Integument: Denies rash or skin lesions [] Neurologic: Denies headache, focal weakness or sensory changes [] 14 pt systems were reviewed and found to be within normal limits, except as documented HEENT: No: Heacaches, Visual Changes, Hearing change, Nasal congestion, Nasal discharge, Oral lesions, Sinus pain, Sore Throat, Epistaxis, Sneezing, Snoring, Tinnitus, Vertigo, Vocal changes, Other Breast: No New/Changing Breast Lumps, No Nipple changes, No Nipple discharge, No Other Cardiovascular: No Chest Pain, No Palpitations, No Orthopnea, No Paroxysmal Noc. Dyspnea, No Edema, No Lt Headedness, No Other Genitourinary: YES Frequency Skin: No Dry Skin, No Eczema, No Hair Changes, No Lumps, No Mole Changes, No Mottling, No Nail Changes, No Pruritus, No Rash, No Skin Lesion Changes, No Other, No Acne Physical Exam Physical Exam Physical Exam Physical Exam Constitutional: Well developed, well nourished, no acute distress, non-toxic appearance. [] HENT: Normocephalic, atraumatic, bilateral external ears normal, oropharynx moist, no oral exudates, nose normal. [] Eyes: PERRLA, EOMI, conjunctiva normal, no discharge. [] Neck: Normal range of motion, no tenderness, supple, no stridor. [] Cardiovascular:Heart rate regular rhythm, no murmur [] Lungs & Thorax: Bilateral breath sounds clear to auscultation [] Abdomen: Bowel sounds normal, soft, no tenderness, no masses, no pulsatile masses. [] Skin: Warm, dry, no erythema, no rash. [] Back: No tenderness, no CVA tenderness. [] Extremities: No tenderness, no cyanosis, no clubbing, ROM intact, no edema. [] Neurologic: confused to details,, normal motor function, normal sensory function , no focal deficits noted. [] Psychologic: Affect flat , judgement fair, mood normal. memory poor [] General: Cooperative Abdomen: Soft Rectal Exam: not examined Extremities: No cyanosis Neuro: Cranial nerves 3-12 NL Vitals Vitals Vital Signs Date Time Temp Pulse Resp B/P (MAP) Pulse Ox O2 Delivery O2 Flow Rate FiO2 05/28/18 12:01 63 144/65 (91) 95 05/28/18 10:00 97.6 18 Room Air 97.6 Labs Labs Laboratory Tests Test 05/28/18 10:05 05/28/18 11:40 White Blood Count 13.8 x10^3/uL (4.0-11.0) Red Blood Count 3.69 x10^6/uL (4.30-5.70) Hemoglobin 11.6 g/dL (13.0-17.5) Hematocrit 34.6 % (39.0-53.0) Mean Corpuscular Volume 94 fL (79-100) Mean Corpuscular Hemoglobin 32 pg (25-35) Mean Corpuscular Hemoglobin Concent 34 g/dL (31-37) Red Cell Distribution Width 13.7 % (11.5-14.5) Platelet Count 249 x10^3/uL (140-400) Neutrophils (%) (Auto) 87 % (31-73) Lymphocytes (%) (Auto) 5 % (24-48) Monocytes (%) (Auto) 8 % (0-9) Eosinophils (%) (Auto) 0 % (0-3) Basophils (%) (Auto) 0 % (0-3) Neutrophils # (Auto) 12.0 x10^3uL (1.8-7.7) Lymphocytes # (Auto) 0.7 x10^3/uL (1.0-4.8) Monocytes # (Auto) 1.1 x10^3/uL (0.0-1.1) Eosinophils # (Auto) 0.1 x10^3/uL (0.0-0.7) Basophils # (Auto) 0.0 x10^3/uL (0.0-0.2) Segmented Neutrophils % 86 % (35-66) Band Neutrophils % 11 % (0-9) Lymphocytes % 1 % (24-48) Monocytes % 2 % (0-10) Toxic Vacuolation Slight Dohle Bodies Present Platelet Estimate Adequate (ADEQUATE) Sodium Level 143 mmol/L (136-145) Potassium Level 3.7 mmol/L (3.5-5.1) Chloride Level 104 mmol/L (98-107) Carbon Dioxide Level 27 mmol/L (21-32) Anion Gap 12 (6-14) Blood Urea Nitrogen 34 mg/dL (8-26) Creatinine 2.9 mg/dL (0.7-1.3) Estimated GFR (Cockcroft-Gault) 21.5 BUN/Creatinine Ratio 12 (6-20) Glucose Level 161 mg/dL (70-99) Calcium Level 9.3 mg/dL (8.5-10.1) Magnesium Level 2.1 mg/dL (1.8-2.4) Total Bilirubin 0.7 mg/dL (0.2-1.0) Aspartate Amino Transf (AST/SGOT) 22 U/L (15-37) Alanine Aminotransferase (ALT/SGPT) 17 U/L (16-63) Alkaline Phosphatase 77 U/L (46-116) Troponin I Quantitative 0.303 ng/mL (0.000-0.055) BR-Cbf-L-Type Natriuretic Peptide 1043 pg/mL (0-124) Total Protein 6.8 g/dL (6.4-8.2) Albumin 3.2 g/dL (3.4-5.0) Albumin/Globulin Ratio 0.9 (1.0-1.7) Lipase 65 U/L (73-393) Urine Collection Type Unknown Urine Color Yellow Urine Clarity Clear Urine pH 5.5 Urine Specific [place] 1.010 Urine Protein Negative mg/dL (NEG-TRACE) Urine Glucose (UA) Negative mg/dL (NEG) Urine Ketones (Stick) Negative mg/dL (NEG) Urine Blood Negative (NEG) Urine Nitrite Negative (NEG) Urine Bilirubin Negative (NEG) Urine Urobilinogen Dipstick 0.2 mg/dL (0.2 mg/dL) Urine Leukocyte Esterase Negative (NEG) Urine RBC 0 /HPF (0-2) Urine WBC 0 /HPF (0-4) Urine Squamous Epithelial Cells Occ /LPF Urine Bacteria 0 /HPF (0-FEW) Laboratory Tests Test 05/28/18 10:05 05/28/18 11:40 White Blood Count 13.8 x10^3/uL (4.0-11.0) Red Blood Count 3.69 x10^6/uL (4.30-5.70) Hemoglobin 11.6 g/dL (13.0-17.5) Hematocrit 34.6 % (39.0-53.0) Mean Corpuscular Volume 94 fL (79-100) Mean Corpuscular Hemoglobin 32 pg (25-35) Mean Corpuscular Hemoglobin Concent 34 g/dL (31-37) Red Cell Distribution Width 13.7 % (11.5-14.5) Platelet Count 249 x10^3/uL (140-400) Neutrophils (%) (Auto) 87 % (31-73) Lymphocytes (%) (Auto) 5 % (24-48) Monocytes (%) (Auto) 8 % (0-9) Eosinophils (%) (Auto) 0 % (0-3) Basophils (%) (Auto) 0 % (0-3) Neutrophils # (Auto) 12.0 x10^3uL (1.8-7.7) Lymphocytes # (Auto) 0.7 x10^3/uL (1.0-4.8) Monocytes # (Auto) 1.1 x10^3/uL (0.0-1.1) Eosinophils # (Auto) 0.1 x10^3/uL (0.0-0.7) Basophils # (Auto) 0.0 x10^3/uL (0.0-0.2) Segmented Neutrophils % 86 % (35-66) Band Neutrophils % 11 % (0-9) Lymphocytes % 1 % (24-48) Monocytes % 2 % (0-10) Toxic Vacuolation Slight Dohle Bodies Present Platelet Estimate Adequate (ADEQUATE) Sodium Level 143 mmol/L (136-145) Potassium Level 3.7 mmol/L (3.5-5.1) Chloride Level 104 mmol/L (98-107) Carbon Dioxide Level 27 mmol/L (21-32) Anion Gap 12 (6-14) Blood Urea Nitrogen 34 mg/dL (8-26) Creatinine 2.9 mg/dL (0.7-1.3) Estimated GFR (Cockcroft-Gault) 21.5 BUN/Creatinine Ratio 12 (6-20) Glucose Level 161 mg/dL (70-99) Calcium Level 9.3 mg/dL (8.5-10.1) Magnesium Level 2.1 mg/dL (1.8-2.4) Total Bilirubin 0.7 mg/dL (0.2-1.0) Aspartate Amino Transf (AST/SGOT) 22 U/L (15-37) Alanine Aminotransferase (ALT/SGPT) 17 U/L (16-63) Alkaline Phosphatase 77 U/L (46-116) Troponin I Quantitative 0.303 ng/mL (0.000-0.055) EF-Oxx-D-Type Natriuretic Peptide 1043 pg/mL (0-124) Total Protein 6.8 g/dL (6.4-8.2) Albumin 3.2 g/dL (3.4-5.0) Albumin/Globulin Ratio 0.9 (1.0-1.7) Lipase 65 U/L (73-393) Urine Collection Type Unknown Urine Color Yellow Urine Clarity Clear Urine pH 5.5 Urine Specific [place] 1.010 Urine Protein Negative mg/dL (NEG-TRACE) Urine Glucose (UA) Negative mg/dL (NEG) Urine Ketones (Stick) Negative mg/dL (NEG) Urine Blood Negative (NEG) Urine Nitrite Negative (NEG) Urine Bilirubin Negative (NEG) Urine Urobilinogen Dipstick 0.2 mg/dL (0.2 mg/dL) Urine Leukocyte Esterase Negative (NEG) Urine RBC 0 /HPF (0-2) Urine WBC 0 /HPF (0-4) Urine Squamous Epithelial Cells Occ /LPF Urine Bacteria 0 /HPF (0-FEW) VTE Prophylaxis Ordered VTE Prophylaxis Devices: Yes VTE Pharmacological Prophylaxi: Yes Assessment/Plan Assessment/Plan impression generalized abdominal pain, nausea vomiting and diarrhea. acute renal failure dementia diabetes plan iv fluid support accuchecks hold NSAIDS hold nephrotoxic drugs nephrology consult sq heparin dvt prophylaxis ELIZABETH ALMARAZ MD May 28, 2018 12:51
--- NOTE | 2018-05-28 13:20 | RAD ---
Renal ultrasound 05/28/2018 INDICATION: Renal failure. COMPARISON STUDY: CT of the abdomen and pelvis without contrast, earlier today. FINDINGS: The right kidney is unremarkable in appearance measuring 12.6 cm in length. Left kidney is unremarkable in appearance measuring 12.6 cm in length. No hydronephrosis or nephrolithiasis seen. No focal renal lesions are identified by ultrasound. Limited visualization of the bladder is unremarkable. IMPRESSION: Unremarkable sonographic appearance of the kidneys. Electronically signed by: Elton Kim MD (05/28/2018 1:17 PM) [id number]
[2018-05-28 14:00] VITALS: BP 149/66
[2018-05-28] MEDS ORDERED: ONDANSETRON PF 4 MG/2 ML VIAL. IV PRN (14:15)
[2018-05-28] MEDS ORDERED: MORPHINE SULFATE 2 MG/ML VIAL. IV PRN (14:15)
--- NOTE | 2018-05-28 15:03 | PDOC2 ---
CONSULT Date of Consult Date of Consult DATE: 05/28/18 TIME: 14:49 Reason for Consult Reason for Consult: ENRIQUE on CKD Source Source: Chart review, Patient History of Present Illness Reason for Visit: This is a 72-year-old CM patient who presented to ER today with generalized abdominal pain, nausea vomiting and diarrhea. Pt is a Poor Historian and has Dx of Dementia states he has been having Diarrhea on and off for last 1 week He reported to RN No BM since yesterday ;later recalled after reminded by family He states he takes pain meds- doesnt know which one Denies any urinary complaints- states haven't Urinated since yesterday (?) No SOB, No f/c Creatinine of 2.9in ER CT of the abdomen and pelvic is negative for any acute findings. Past Medical History Cardiovascular: CAD, CHF, HTN, [place], Hyperlipidemia, Other CENTRAL NERVOUS SYSTEM: CVA, Dementia, TIA GI: GERD Heme/Onc: No pertinent hx Hepatobiliary: No pertinent hx Psych: No pertinent hx Musculoskeletal: Osteoarthritis Infectious disease: No pertinent hx Renal/: Chronic renal insuff Endocrine: Diabetes, Other Past Surgical History Past Surgical History: Pacemaker, Appendectomy, CABG, Other Family History Family History: Alzheimer's Disease, Coronary Artery Disease, Hypertension Social History No ALCOHOL: none Drugs: None Lives: with Family Current Problem List Problem List Problems Medical Problems: (1) Abdominal pain Status: Acute Current Medications Current Medications Current Medications Ondansetron HCl (Zofran) 4 mg 1X ONCE IV Last administered on 05/28/18at 10:20 ; Start 05/28/18 at 10:15; Stop 05/28/18 at 10:16; Status DC Pantoprazole Sodium (PROTONIX VIAL for IV PUSH) 40 mg 1X ONCE IVP Last administered on 05/28/18at 10:20; Start 05/28/18 at 10:15; Stop 05/28/18 at 10:16 ; Status DC Sodium Chloride 1,000 ml @ 1,000 mls/hr 1X ONCE IV Last administered on at 10:20; Start 05/28/18 at 10:15; Stop 05/28/18 at 11:14; Status DC Iohexol (Omnipaque 240 Mg/ml) 30 ml 1X ONCE PO ; Start 05/28/18 at 11:15; Stop 05/28/18 at 11:16; Status DC Iohexol (Omnipaque 300 Mg/ml) 75 ml 1X ONCE IV ; Start 05/28/18 at 11:15; Stop 05/28/18 at 11:16; Status DC Info (CONTRAST GIVEN -- Rx MONITORING) 1 each PRN DAILY PRN MC SEE COMMENTS; Start 05/28/18 at 11:15; Stop 05/30/18 at 11:14 Aspirin (Katey Aspirin) 325 mg 1X ONCE PO Last administered on 05/28/18at 12:17 ; Start 05/28/18 at 11:45; Stop 05/28/18 at 11:46; Status DC Atorvastatin Calcium (Lipitor) 40 mg QHS PO ; Start 05/28/18 at 21:00 Duloxetine HCl (Cymbalta) 30 mg DAILY PO ; Start 05/29/18 at 09:00 EZETIMIBE (Zetia) 10 mg DAILY PO ; Start 05/29/18 at 09:00 Insulin Glargine (Lantus) 75 units QHS SQ ; Start 05/28/18 at 21:00 Fish Oil (Fish Oil) 1,000 mg BID PO ; Start 05/28/18 at 21:00 Dipyridamole/ Aspirin (Aggrenox) 1 cap BID PO ; Start 05/28/18 at 21:00 Insulin Human Lispro (HumaLOG) 25 units TIDWMEALS SQ ; Start 05/28/18 at 17:00 Memantine (Namenda) 10 mg BID PO ; Start 05/28/18 at 21:00 Non-Formulary Medication (Ubidecarenone (Co Q-10)) 200 mg DAILY PO ; Start 05/29 at 09:00; Status UNV Vitamin D (Vitamin D3) 1,000 unit DAILY PO ; Start 05/29/18 at 09:00 Donepezil HCl (Aricept) 10 mg DAILY PO ; Start 05/29/18 at 09:00 Heparin Sodium (Porcine) (Heparin Sq) 5,000 unit Q8HRS SQ ; Start 05/28/18 at 14 :00 Levofloxacin/ Dextrose 50 ml @ 50 mls/hr 1X ONCE IV Last administered on at 13:30; Start 05/28/18 at 14:00; Stop 05/28/18 at 14:59 Ondansetron HCl (Zofran) 4 mg PRN Q8HRS PRN IV NAUSEA/VOMITING; Start 05/28/18 at 14:15; Stop 05/29/18 at 14:14 Morphine Sulfate (Morphine Sulfate) 2 mg PRN Q2HR PRN IV PAIN; Start 05/28/18 at 14:15; Stop 05/29/18 at 14:14 Sodium Chloride 1,000 ml @ 100 mls/hr 1X ONCE IV ; Start 05/28/18 at 14:15; Stop 05/29/18 at 00:14 Pantoprazole Sodium (PROTONIX VIAL for IV PUSH) 40 mg DAILYAC IVP ; Start at 07:30 Active Scripts Active Lantus Solostar (Insulin Glargine,Hum.rec.anlog) 100 Unit/1 Ml Insuln.pen 75 Units SQ QHS 30 Days Cymbalta (Duloxetine Hcl) 30 Mg Capsule.dr 30 Mg PO DAILY 30 Days Hydrocodone-Apap 5-325 (Hydrocodone Bit/Acetaminophen) 1 Each Tablet 1-2 Tab PO PRN Q6HRS PRN 5 Days Hydrocodone-Apap 5-325 (Hydrocodone Bit/Acetaminophen) 1 Each Tablet 1 Tab PO PRN Q4HRS PRN Atorvastatin Calcium 40 Mg Tablet 1 Tab PO DAILY Novolog Flexpen (Insulin Aspart) 100 Unit/1 Ml Insuln.pen 25 Unit SQ TIDAC Bentyl (Dicyclomine Hcl) 10 Mg Capsule 10 Mg PO QID PRN Reported Cyclobenzaprine Hcl 10 Mg Tablet 1 Tab PO PRN TID PRN Namenda (Memantine Hcl) 10 Mg Tablet 10 Mg PO BID D3 + K2 Dots 1,000 Units Tab (Vitamin D3/Vitamin K2) 1 Each Tab.rapdis 1 Each PO DAILY Fish Oil 1,000 Mg Capsule ([place]-3 Fatty Acids/Fish Oil) 1 Each Capsule 1 Each PO BID Donepezil Hcl 10 Mg Tablet 1 Tab PO DAILY Aggrenox 25 Mg-200 Mg Capsule (Aspirin/Dipyridamole) 1 Each Cpmp.12hr 1 Cap PO BID Cozaar (Losartan Potassium) 100 Mg Tablet 1 Tab PO DAILY Lasix (Furosemide) 20 Mg Tablet 1 Tab PO DAILY Zetia (Ezetimibe) 10 Mg Tablet 1 Tab PO DAILY Potassium Chloride 10 Meq Capsule.er 1 Cap PO DAILY Magnesium Gluconate 30 Mg Tablet 250 Mg PO Co Q-10 (Ubidecarenone) 200 Mg Capsule 200 Mg PO DAILY Allergies Allergies: Coded Allergies: Penicillins (Verified Allergy, Intermediate, 09/16/16) TOLERATES ROCEPHIN fenofibrate (Verified Allergy, Intermediate, 09/16/16) niacin (Verified Allergy, Intermediate, 09/16/16) simvastatin (Verified Allergy, Intermediate, 09/16/16) ROS Review of System As per HPI Physical Exam Physical Exam GEN: NAD HEEN: OM dry No JVD, supple CVS: S1S2, RESP: No Rales, No Rhonchi,[nO Acc. Muscle Use GI: BS + ve, NO Bruit, Non Tender, Non Distended : No CVA tenderness, No Suprapubic Tenderness, No Rios Neuro- dementia Skin No rash Vital Signs Vital Signs Date Time Temp Pulse Resp B/P (MAP) Pulse Ox O2 Delivery O2 Flow Rate FiO2 05/28/18 14:00 98.6 68 14 149/66 (93) 95 Room Air 98.6 Assessment & Plan ENRIQUE - On CKD Likely Pre-renal N/V/Poor PO intake Continue IVF ,Monitor UOP - US in ER Normal bladder Ct/US reviewed as below E-Lytes Stable CKD stage 3 - since 2017 Baseline 1.2-1.6 HTN- On Losartan and lasix at Home Hold Generalized abdominal pain, nausea vomiting and diarrhea. As per primary DM Dementia Discussed with RN Labs Labs Laboratory Tests Test 05/28/18 10:05 05/28/18 11:40 White Blood Count 13.8 x10^3/uL (4.0-11.0) Red Blood Count 3.69 x10^6/uL (4.30-5.70) Hemoglobin 11.6 g/dL (13.0-17.5) Hematocrit 34.6 % (39.0-53.0) Mean Corpuscular Volume 94 fL (79-100) Mean Corpuscular Hemoglobin 32 pg (25-35) Mean Corpuscular Hemoglobin Concent 34 g/dL (31-37) Red Cell Distribution Width 13.7 % (11.5-14.5) Platelet Count 249 x10^3/uL (140-400) Neutrophils (%) (Auto) 87 % (31-73) Lymphocytes (%) (Auto) 5 % (24-48) Monocytes (%) (Auto) 8 % (0-9) Eosinophils (%) (Auto) 0 % (0-3) Basophils (%) (Auto) 0 % (0-3) Neutrophils # (Auto) 12.0 x10^3uL (1.8-7.7) Lymphocytes # (Auto) 0.7 x10^3/uL (1.0-4.8) Monocytes # (Auto) 1.1 x10^3/uL (0.0-1.1) Eosinophils # (Auto) 0.1 x10^3/uL (0.0-0.7) Basophils # (Auto) 0.0 x10^3/uL (0.0-0.2) Segmented Neutrophils % 86 % (35-66) Band Neutrophils % 11 % (0-9) Lymphocytes % 1 % (24-48) Monocytes % 2 % (0-10) Toxic Vacuolation Slight Dohle Bodies Present Platelet Estimate Adequate (ADEQUATE) Sodium Level 143 mmol/L (136-145) Potassium Level 3.7 mmol/L (3.5-5.1) Chloride Level 104 mmol/L (98-107) Carbon Dioxide Level 27 mmol/L (21-32) Anion Gap 12 (6-14) Blood Urea Nitrogen 34 mg/dL (8-26) Creatinine 2.9 mg/dL (0.7-1.3) Estimated GFR (Cockcroft-Gault) 21.5 BUN/Creatinine Ratio 12 (6-20) Glucose Level 161 mg/dL (70-99) Calcium Level 9.3 mg/dL (8.5-10.1) Magnesium Level 2.1 mg/dL (1.8-2.4) Total Bilirubin 0.7 mg/dL (0.2-1.0) Aspartate Amino Transf (AST/SGOT) 22 U/L (15-37) Alanine Aminotransferase (ALT/SGPT) 17 U/L (16-63) Alkaline Phosphatase 77 U/L (46-116) Troponin I Quantitative 0.303 ng/mL (0.000-0.055) PE-Owc-M-Type Natriuretic Peptide 1043 pg/mL (0-124) Total Protein 6.8 g/dL (6.4-8.2) Albumin 3.2 g/dL (3.4-5.0) Albumin/Globulin Ratio 0.9 (1.0-1.7) Lipase 65 U/L (73-393) Urine Collection Type Unknown Urine Color Yellow Urine Clarity Clear Urine pH 5.5 Urine Specific [place] 1.010 Urine Protein Negative mg/dL (NEG-TRACE) Urine Glucose (UA) Negative mg/dL (NEG) Urine Ketones (Stick) Negative mg/dL (NEG) Urine Blood Negative (NEG) Urine Nitrite Negative (NEG) Urine Bilirubin Negative (NEG) Urine Urobilinogen Dipstick 0.2 mg/dL (0.2 mg/dL) Urine Leukocyte Esterase Negative (NEG) Urine RBC 0 /HPF (0-2) Urine WBC 0 /HPF (0-4) Urine Squamous Epithelial Cells Occ /LPF Urine Bacteria 0 /HPF (0-FEW) Laboratory Tests Test 05/28/18 10:05 05/28/18 11:40 White Blood Count 13.8 x10^3/uL (4.0-11.0) Red Blood Count 3.69 x10^6/uL (4.30-5.70) Hemoglobin 11.6 g/dL (13.0-17.5) Hematocrit 34.6 % (39.0-53.0) Mean Corpuscular Volume 94 fL (79-100) Mean Corpuscular Hemoglobin 32 pg (25-35) Mean Corpuscular Hemoglobin Concent 34 g/dL (31-37) Red Cell Distribution Width 13.7 % (11.5-14.5) Platelet Count 249 x10^3/uL (140-400) Neutrophils (%) (Auto) 87 % (31-73) Lymphocytes (%) (Auto) 5 % (24-48) Monocytes (%) (Auto) 8 % (0-9) Eosinophils (%) (Auto) 0 % (0-3) Basophils (%) (Auto) 0 % (0-3) Neutrophils # (Auto) 12.0 x10^3uL (1.8-7.7) Lymphocytes # (Auto) 0.7 x10^3/uL (1.0-4.8) Monocytes # (Auto) 1.1 x10^3/uL (0.0-1.1) Eosinophils # (Auto) 0.1 x10^3/uL (0.0-0.7) Basophils # (Auto) 0.0 x10^3/uL (0.0-0.2) Segmented Neutrophils % 86 % (35-66) Band Neutrophils % 11 % (0-9) Lymphocytes % 1 % (24-48) Monocytes % 2 % (0-10) Toxic Vacuolation Slight Dohle Bodies Present Platelet Estimate Adequate (ADEQUATE) Sodium Level 143 mmol/L (136-145) Potassium Level 3.7 mmol/L (3.5-5.1) Chloride Level 104 mmol/L (98-107) Carbon Dioxide Level 27 mmol/L (21-32) Anion Gap 12 (6-14) Blood Urea Nitrogen 34 mg/dL (8-26) Creatinine 2.9 mg/dL (0.7-1.3) Estimated GFR (Cockcroft-Gault) 21.5 BUN/Creatinine Ratio 12 (6-20) Glucose Level 161 mg/dL (70-99) Calcium Level 9.3 mg/dL (8.5-10.1) Magnesium Level 2.1 mg/dL (1.8-2.4) Total Bilirubin 0.7 mg/dL (0.2-1.0) Aspartate Amino Transf (AST/SGOT) 22 U/L (15-37) Alanine Aminotransferase (ALT/SGPT) 17 U/L (16-63) Alkaline Phosphatase 77 U/L (46-116) Troponin I Quantitative 0.303 ng/mL (0.000-0.055) ZC-Dwd-S-Type Natriuretic Peptide 1043 pg/mL (0-124) Total Protein 6.8 g/dL (6.4-8.2) Albumin 3.2 g/dL (3.4-5.0) Albumin/Globulin Ratio 0.9 (1.0-1.7) Lipase 65 U/L (73-393) Urine Collection Type Unknown Urine Color Yellow Urine Clarity Clear Urine pH 5.5 Urine Specific [place] 1.010 Urine Protein Negative mg/dL (NEG-TRACE) Urine Glucose (UA) Negative mg/dL (NEG) Urine Ketones (Stick) Negative mg/dL (NEG) Urine Blood Negative (NEG) Urine Nitrite Negative (NEG) Urine Bilirubin Negative (NEG) Urine Urobilinogen Dipstick 0.2 mg/dL (0.2 mg/dL) Urine Leukocyte Esterase Negative (NEG) Urine RBC 0 /HPF (0-2) Urine WBC 0 /HPF (0-4) Urine Squamous Epithelial Cells Occ /LPF Urine Bacteria 0 /HPF (0-FEW) Review All relevant outside records, renal labs, imaging studies, telemetry/EKG's were reviewed. Images Images Renal US-- The right kidney is unremarkable in appearance measuring 12.6 cm in length. Left kidney is unremarkable in appearance measuring 12.6 cm in length. No hydronephrosis or nephrolithiasis seen. No focal renal lesions are identified by ultrasound. Limited visualization of the bladder is unremarkable. IMPRESSION: Unremarkable sonographic appearance of the kidneys. Ct scan abdomen-- The interpolar region of right kidney demonstrates 2 mm nonobstructive nephrolith. Both ureters are free of stone or obstruction. Urinary bladder is unremarkable. Impression: 1. No acute abnormality identified in the abdomen or pelvis. 2. Nodular densities are seen involving the visualized left lower lung field, could represent nonspecific airspace disease such as pneumonia. Recommend clinical correlation. ELVI LICONA MD May 28, 2018 15:03
--- NOTE | 2018-05-28 15:18 | PDOC ---
PULMONARY PROGRESS NOTES Vitals Vital Signs Date Time Temp Pulse Resp B/P (MAP) Pulse Ox O2 Delivery O2 Flow Rate FiO2 05/28/18 14:00 98.6 68 14 149/66 (93) 95 Room Air 98.6 Lungs: Clear Cardiovascular: S1, S2 Labs Laboratory Tests Test 05/28/18 10:05 05/28/18 11:40 05/28/18 14:30 White Blood Count 13.8 x10^3/uL (4.0-11.0) Red Blood Count 3.69 x10^6/uL (4.30-5.70) Hemoglobin 11.6 g/dL (13.0-17.5) Hematocrit 34.6 % (39.0-53.0) Mean Corpuscular Volume 94 fL (79-100) Mean Corpuscular Hemoglobin 32 pg (25-35) Mean Corpuscular Hemoglobin Concent 34 g/dL (31-37) Red Cell Distribution Width 13.7 % (11.5-14.5) Platelet Count 249 x10^3/uL (140-400) Neutrophils (%) (Auto) 87 % (31-73) Lymphocytes (%) (Auto) 5 % (24-48) Monocytes (%) (Auto) 8 % (0-9) Eosinophils (%) (Auto) 0 % (0-3) Basophils (%) (Auto) 0 % (0-3) Neutrophils # (Auto) 12.0 x10^3uL (1.8-7.7) Lymphocytes # (Auto) 0.7 x10^3/uL (1.0-4.8) Monocytes # (Auto) 1.1 x10^3/uL (0.0-1.1) Eosinophils # (Auto) 0.1 x10^3/uL (0.0-0.7) Basophils # (Auto) 0.0 x10^3/uL (0.0-0.2) Segmented Neutrophils % 86 % (35-66) Band Neutrophils % 11 % (0-9) Lymphocytes % 1 % (24-48) Monocytes % 2 % (0-10) Toxic Vacuolation Slight Dohle Bodies Present Platelet Estimate Adequate (ADEQUATE) Sodium Level 143 mmol/L (136-145) Potassium Level 3.7 mmol/L (3.5-5.1) Chloride Level 104 mmol/L (98-107) Carbon Dioxide Level 27 mmol/L (21-32) Anion Gap 12 (6-14) Blood Urea Nitrogen 34 mg/dL (8-26) Creatinine 2.9 mg/dL (0.7-1.3) Estimated GFR (Cockcroft-Gault) 21.5 BUN/Creatinine Ratio 12 (6-20) Glucose Level 161 mg/dL (70-99) Calcium Level 9.3 mg/dL (8.5-10.1) Magnesium Level 2.1 mg/dL (1.8-2.4) Total Bilirubin 0.7 mg/dL (0.2-1.0) Aspartate Amino Transf (AST/SGOT) 22 U/L (15-37) Alanine Aminotransferase (ALT/SGPT) 17 U/L (16-63) Alkaline Phosphatase 77 U/L (46-116) Troponin I Quantitative 0.303 ng/mL (0.000-0.055) 0.182 ng/mL (0.000-0.055) NL-Ujq-L-Type Natriuretic Peptide 1043 pg/mL (0-124) Total Protein 6.8 g/dL (6.4-8.2) Albumin 3.2 g/dL (3.4-5.0) Albumin/Globulin Ratio 0.9 (1.0-1.7) Lipase 65 U/L (73-393) Urine Collection Type Unknown Urine Color Yellow Urine Clarity Clear Urine pH 5.5 Urine Specific [place] 1.010 Urine Protein Negative mg/dL (NEG-TRACE) Urine Glucose (UA) Negative mg/dL (NEG) Urine Ketones (Stick) Negative mg/dL (NEG) Urine Blood Negative (NEG) Urine Nitrite Negative (NEG) Urine Bilirubin Negative (NEG) Urine Urobilinogen Dipstick 0.2 mg/dL (0.2 mg/dL) Urine Leukocyte Esterase Negative (NEG) Urine RBC 0 /HPF (0-2) Urine WBC 0 /HPF (0-4) Urine Squamous Epithelial Cells Occ /LPF Urine Bacteria 0 /HPF (0-FEW) Laboratory Tests Test 05/28/18 10:05 05/28/18 11:40 05/28/18 14:30 White Blood Count 13.8 x10^3/uL (4.0-11.0) Red Blood Count 3.69 x10^6/uL (4.30-5.70) Hemoglobin 11.6 g/dL (13.0-17.5) Hematocrit 34.6 % (39.0-53.0) Mean Corpuscular Volume 94 fL (79-100) Mean Corpuscular Hemoglobin 32 pg (25-35) Mean Corpuscular Hemoglobin Concent 34 g/dL (31-37) Red Cell Distribution Width 13.7 % (11.5-14.5) Platelet Count 249 x10^3/uL (140-400) Neutrophils (%) (Auto) 87 % (31-73) Lymphocytes (%) (Auto) 5 % (24-48) Monocytes (%) (Auto) 8 % (0-9) Eosinophils (%) (Auto) 0 % (0-3) Basophils (%) (Auto) 0 % (0-3) Neutrophils # (Auto) 12.0 x10^3uL (1.8-7.7) Lymphocytes # (Auto) 0.7 x10^3/uL (1.0-4.8) Monocytes # (Auto) 1.1 x10^3/uL (0.0-1.1) Eosinophils # (Auto) 0.1 x10^3/uL (0.0-0.7) Basophils # (Auto) 0.0 x10^3/uL (0.0-0.2) Segmented Neutrophils % 86 % (35-66) Band Neutrophils % 11 % (0-9) Lymphocytes % 1 % (24-48) Monocytes % 2 % (0-10) Toxic Vacuolation Slight Dohle Bodies Present Platelet Estimate Adequate (ADEQUATE) Sodium Level 143 mmol/L (136-145) Potassium Level 3.7 mmol/L (3.5-5.1) Chloride Level 104 mmol/L (98-107) Carbon Dioxide Level 27 mmol/L (21-32) Anion Gap 12 (6-14) Blood Urea Nitrogen 34 mg/dL (8-26) Creatinine 2.9 mg/dL (0.7-1.3) Estimated GFR (Cockcroft-Gault) 21.5 BUN/Creatinine Ratio 12 (6-20) Glucose Level 161 mg/dL (70-99) Calcium Level 9.3 mg/dL (8.5-10.1) Magnesium Level 2.1 mg/dL (1.8-2.4) Total Bilirubin 0.7 mg/dL (0.2-1.0) Aspartate Amino Transf (AST/SGOT) 22 U/L (15-37) Alanine Aminotransferase (ALT/SGPT) 17 U/L (16-63) Alkaline Phosphatase 77 U/L (46-116) Troponin I Quantitative 0.303 ng/mL (0.000-0.055) 0.182 ng/mL (0.000-0.055) UH-Qgl-S-Type Natriuretic Peptide 1043 pg/mL (0-124) Total Protein 6.8 g/dL (6.4-8.2) Albumin 3.2 g/dL (3.4-5.0) Albumin/Globulin Ratio 0.9 (1.0-1.7) Lipase 65 U/L (73-393) Urine Collection Type Unknown Urine Color Yellow Urine Clarity Clear Urine pH 5.5 Urine Specific [place] 1.010 Urine Protein Negative mg/dL (NEG-TRACE) Urine Glucose (UA) Negative mg/dL (NEG) Urine Ketones (Stick) Negative mg/dL (NEG) Urine Blood Negative (NEG) Urine Nitrite Negative (NEG) Urine Bilirubin Negative (NEG) Urine Urobilinogen Dipstick 0.2 mg/dL (0.2 mg/dL) Urine Leukocyte Esterase Negative (NEG) Urine RBC 0 /HPF (0-2) Urine WBC 0 /HPF (0-4) Urine Squamous Epithelial Cells Occ /LPF Urine Bacteria 0 /HPF (0-FEW) Medications Active Scripts Medications Dose Route/Sig Max Daily Dose Days Date Category Cyclobenzaprine Hcl 10 Mg Tablet 1 Tab PO PRN TID PRN 03/03/18 Reported Lantus Solostar (Insulin Glargine,Hum.rec.anlog) 100 Unit/1 Ml Insuln.pen 75 Units SQ QHS 30 01/12/18 Rx Cymbalta (Duloxetine Hcl) 30 Mg Capsule.dr 30 Mg PO DAILY 30 01/12/18 Rx Namenda (Memantine Hcl) 10 Mg Tablet 10 Mg PO BID 12/25/17 Reported Hydrocodone-Apap 5-325 (Hydrocodone Bit/Acetaminophen) 1 Each Tablet 1-2 Tab PO PRN Q6HRS PRN 5 10/31/17 Rx Hydrocodone-Apap 5-325 (Hydrocodone Bit/Acetaminophen) 1 Each Tablet 1 Tab PO PRN Q4HRS PRN 09/17/16 Rx Atorvastatin Calcium 40 Mg Tablet 1 Tab PO DAILY 09/14/16 Rx Novolog Flexpen (Insulin Aspart) 100 Unit/1 Ml Insuln.pen 25 Unit SQ TIDAC 09/14/16 Rx D3 + K2 Dots 1,000 Units Tab (Vitamin D3/Vitamin K2) 1 Each Tab.rapdis 1 Each PO DAILY 09/14/16 Reported Fish Oil 1,000 Mg Capsule ([place]-3 Fatty Acids/Fish Oil) 1 Each Capsule 1 Each PO BID 09/14/16 Reported Donepezil Hcl 10 Mg Tablet 1 Tab PO DAILY 09/14/16 Reported Bentyl (Dicyclomine Hcl) 10 Mg Capsule 10 Mg PO QID PRN 09/07/16 Rx Aggrenox 25 Mg-200 Mg Capsule (Aspirin/Dipyridamole) 1 Each Cpmp.12hr 1 Cap PO BID 04/12/14 Reported Cozaar (Losartan Potassium) 100 Mg Tablet 1 Tab PO DAILY 04/12/14 Reported Lasix (Furosemide) 20 Mg Tablet 1 Tab PO DAILY 04/12/14 Reported Zetia (Ezetimibe) 10 Mg Tablet 1 Tab PO DAILY 04/12/14 Reported Potassium Chloride 10 Meq Capsule.er 1 Cap PO DAILY 04/12/14 Reported Magnesium Gluconate 30 Mg Tablet 250 Mg PO 04/12/14 Reported Co Q-10 (Ubidecarenone) 200 Mg Capsule 200 Mg PO DAILY 04/12/14 Reported Impression . FULL CONSULT DICTATED ILL DEFINED INDURATES SUSPECT CHF WILL FOLLOW THANKS MARITZA QUIROGA MD May 28, 2018 15:18
--- NOTE | 2018-05-28 16:07 | PDOC2 ---
CHRISTIANA THOMPSON JETTING MACHINE OPERATOR 05/28/18 1607: CARDIAC CONSULT DATE OF CONSULT Date of Consult DATE: 05/28/18 TIME: 15:50 REASON FOR CONSULT Reason for Consult: NSTEMI REFERRING PHYSICIAN Referring Physician: Birdie SOURCE Source: Chart review HISTORY OF PRESENT ILLNESS HISTORY OF PRESENT ILLNESS 72 year old male admitted through the ER with nausea, vomiting, diarrhea and abdominal pain. Troponin done that was 0.3 in the setting of Cr. of 2.9. EKG V paced. Confused, thinks it is 2010. ? chest pain with cough. Reason for Visit: NSTEMI PAST MEDICAL HISTORY Past Medical History Cardiovascular: CAD, CHF (ICM), HTN, [place], Hyperlipidemia, Other (TIME RECORDER) CENTRAL NERVOUS SYSTEM: CVA, TIA, Other (Carotid artery disease) GI: GERD Heme/Onc: No pertinent hx Hepatobiliary: No pertinent hx Psych: No pertinent hx Musculoskeletal: Osteoarthritis, Other (RBKA) Infectious disease: No pertinent hx ENT: No pertinent hx Renal/: Chronic renal insuff Endocrine: Diabetes (2) Dermatology: No pertinent hx PAST SURGICAL HISTORY Past Surgical History: Pacemaker ([employer]-d), CABG, Other (RBKA) FAMILY HISTORY Family History: Coronary Artery Disease (brother) SOCIAL HISTORY Smoke: No ALCOHOL: none Drugs: None Lives: with Family CURRENT MEDICATIONS CURRENT MEDICATIONS Current Medications Medications (Trade) Dose Ordered Sig/Sylwia Route PRN Reason Start Time Stop Time Status Last Admin Dose Admin Ondansetron HCl (Zofran) 4 mg 1X ONCE IV 05/28/18 10:15 05/28/18 10:16 DC 05/28/18 10:20 Pantoprazole Sodium (PROTONIX VIAL for IV PUSH) 40 mg 1X ONCE IVP 05/28/18 10:15 05/28/18 10:16 DC 05/28/18 10:20 Sodium Chloride 1,000 ml @ 1,000 mls/hr 1X ONCE IV 05/28/18 10:15 05/28/18 11:14 DC 05/28/18 10:20 Aspirin (Katey Aspirin) 325 mg 1X ONCE PO 05/28/18 11:45 05/28/18 11:46 DC 05/28/18 12:17 Levofloxacin/ Dextrose 50 ml @ 50 mls/hr 1X ONCE IV 05/28/18 14:00 05/28/18 14:59 DC 05/28/18 13:30 ALLERGIES ALLERGIES: Coded Allergies: Penicillins (Verified Allergy, Intermediate, 09/16/16) TOLERATES ROCEPHIN fenofibrate (Verified Allergy, Intermediate, 09/16/16) niacin (Verified Allergy, Intermediate, 09/16/16) simvastatin (Verified Allergy, Intermediate, 09/16/16) ROS Review of System unobtainable due to dementia PHYSICAL EXAM General: Cooperative, No acute distress HEENT: Atraumatic Lungs: Other (coarse) Heart: Normal S1, Normal S2 Abdomen: Soft Extremities: No edema Skin: No rashes Neuro: Normal speech Psych/Mental Status: Mood NL MUSCULOSKELETAL: Osteoarthritic changes both hands VITALS VITALS Vital Signs Date Time Temp Pulse Resp B/P (MAP) Pulse Ox O2 Delivery O2 Flow Rate FiO2 05/28/18 14:00 98.6 68 14 149/66 (93) 95 Room Air 98.6 LABS Lab: Laboratory Tests Test 05/28/18 10:05 05/28/18 11:40 05/28/18 14:30 White Blood Count 13.8 x10^3/uL (4.0-11.0) Red Blood Count 3.69 x10^6/uL (4.30-5.70) Hemoglobin 11.6 g/dL (13.0-17.5) Hematocrit 34.6 % (39.0-53.0) Mean Corpuscular Volume 94 fL (79-100) Mean Corpuscular Hemoglobin 32 pg (25-35) Mean Corpuscular Hemoglobin Concent 34 g/dL (31-37) Red Cell Distribution Width 13.7 % (11.5-14.5) Platelet Count 249 x10^3/uL (140-400) Neutrophils (%) (Auto) 87 % (31-73) Lymphocytes (%) (Auto) 5 % (24-48) Monocytes (%) (Auto) 8 % (0-9) Eosinophils (%) (Auto) 0 % (0-3) Basophils (%) (Auto) 0 % (0-3) Neutrophils # (Auto) 12.0 x10^3uL (1.8-7.7) Lymphocytes # (Auto) 0.7 x10^3/uL (1.0-4.8) Monocytes # (Auto) 1.1 x10^3/uL (0.0-1.1) Eosinophils # (Auto) 0.1 x10^3/uL (0.0-0.7) Basophils # (Auto) 0.0 x10^3/uL (0.0-0.2) Segmented Neutrophils % 86 % (35-66) Band Neutrophils % 11 % (0-9) Lymphocytes % 1 % (24-48) Monocytes % 2 % (0-10) Toxic Vacuolation Slight Dohle Bodies Present Platelet Estimate Adequate (ADEQUATE) Sodium Level 143 mmol/L (136-145) Potassium Level 3.7 mmol/L (3.5-5.1) Chloride Level 104 mmol/L (98-107) Carbon Dioxide Level 27 mmol/L (21-32) Anion Gap 12 (6-14) Blood Urea Nitrogen 34 mg/dL (8-26) Creatinine 2.9 mg/dL (0.7-1.3) Estimated GFR (Cockcroft-Gault) 21.5 BUN/Creatinine Ratio 12 (6-20) Glucose Level 161 mg/dL (70-99) Calcium Level 9.3 mg/dL (8.5-10.1) Magnesium Level 2.1 mg/dL (1.8-2.4) Total Bilirubin 0.7 mg/dL (0.2-1.0) Aspartate Amino Transf (AST/SGOT) 22 U/L (15-37) Alanine Aminotransferase (ALT/SGPT) 17 U/L (16-63) Alkaline Phosphatase 77 U/L (46-116) Troponin I Quantitative 0.303 ng/mL (0.000-0.055) 0.182 ng/mL (0.000-0.055) PP-Mvw-E-Type Natriuretic Peptide 1043 pg/mL (0-124) Total Protein 6.8 g/dL (6.4-8.2) Albumin 3.2 g/dL (3.4-5.0) Albumin/Globulin Ratio 0.9 (1.0-1.7) Lipase 65 U/L (73-393) Urine Collection Type Unknown Urine Color Yellow Urine Clarity Clear Urine pH 5.5 Urine Specific [place] 1.010 Urine Protein Negative mg/dL (NEG-TRACE) Urine Glucose (UA) Negative mg/dL (NEG) Urine Ketones (Stick) Negative mg/dL (NEG) Urine Blood Negative (NEG) Urine Nitrite Negative (NEG) Urine Bilirubin Negative (NEG) Urine Urobilinogen Dipstick 0.2 mg/dL (0.2 mg/dL) Urine Leukocyte Esterase Negative (NEG) Urine RBC 0 /HPF (0-2) Urine WBC 0 /HPF (0-4) Urine Squamous Epithelial Cells Occ /LPF Urine Bacteria 0 /HPF (0-FEW) IMAGES IMAGES 03/21/2018: CXR: Left ventricle systolic function is normal. The Ejection Fraction is 50-55%. There is normal LV segmental wall motion. Pacer wire seen right atrium and right ventricle. Transmitral Doppler flow pattern is Grade I-abnormal relaxation pattern. Trace mitral regurgitation. Trace tricuspid regurgitation. There is no evidence of significant pericardial effusion. EKG EKG V-paced ECHOCARDIOGRAM ECHOCARDIOGRAM 08/09/2017: TTE: Left ventricle systolic function is normal. The Ejection Fraction is 50-55%. There is normal LV segmental wall motion. Pacer wire seen right atrium and right ventricle. Transmitral Doppler flow pattern is Grade I-abnormal relaxation pattern. Trace mitral regurgitation. Trace tricuspid regurgitation. There is no evidence of significant pericardial effusion. ASSESSMENT/PLAN ASSESSMENT/PLAN 1. NSTEMI --elevated troponin in the setting of ENRIQUE; continue serial markers --check TTE to re-evaluate LVEF --? ischemic evaluation; will need input from nephrology prior to scheduling 2. ischemic CMP with ICD --[employer] to interrogate --continue medical management; hold ARB due to renal function 3. CAD --chest pain with cough --continue aspirin and statin therapy 4. HTN --control with meds 5. HLD --check FLP and continue statin therapy JD MONGE MD 05/28/18 1640: CARDIAC CONSULT ASSESSMENT/PLAN ASSESSMENT/PLAN Patient seen and examined. Agree with SHOE REPAIRER's assessment and plan. Slight troponin elevation probably demand ischemia. Recent Lexiscan nuclear stress test in February 2018 did not show any significant ischemia. Previous 2-D echocardiogram showed normalized left ventricle systolic function. We will repeat 2-D echo to monitor LV function. Recent biventricular ICD device check April 2018 showed normal function. Continue workup and management of nausea/vomiting and abdominal pain per primary team Thank you for your consultation CHRISTIANA THOMPSON APRN May 28, 2018 16:07 JD MONGE MD May 28, 2018 16:40
[2018-05-28] MEDS ORDERED: AMLO5TAB7 PO (16:38)
[2018-05-28] MEDS ORDERED: PANT20TA2 PO (16:38)
[2018-05-28] MEDS ORDERED: CARV25TA PO (16:38)
[2018-05-28] MEDS ORDERED: GABA-585 PO (16:38)
[2018-05-28] MEDS: INSULIN LISPRO 300 UNITS/3 ML INSULN.PEN. SQ SCH (17:00)
[2018-05-28] MEDS: CARVEDILOL 12.5 MG TABLET. PO SCH (17:14)
[2018-05-28] MEDS: HEPARIN PF for SUB-Q USE 5,000 UNIT/0.5 ML VIAL. SQ SCH ×2 (17:20→20:11)
[2018-05-28] MEDS ORDERED: INFLUENZA VAX SCREEN BY RX. MC PRN (19:00)
[2018-05-28 19:15] VITALS: BP 127/53
[2018-05-28] MEDS: OMEGA-3 FATTY ACIDS/FISH OIL 1,000 MG CAPSULE. PO SCH (19:58)
[2018-05-28] MEDS: GABAPENTIN 100 MG CAPSULE. PO SCH (19:58)
[2018-05-28] MEDS: ATORVASTATIN CALCIUM 40 MG TABLET. PO SCH (19:58)
[2018-05-28] MEDS: MEMANTINE 10 MG TABLET. PO SCH (19:58)
[2018-05-28] MEDS: ASPIRIN/DIPYRIDAMOLE 200/25MG CAP.ER.12H. PO SCH (19:59)
--- NOTE | 2018-05-28 19:59 | CONS ---
DATE OF CONSULTATION: 05/28/2018 ATTENDING PHYSICIAN: Dr. Garcia. REASON FOR CONSULTATION: The patient was seen in pulmonary consultation at the request of Dr. Garcia for CT abdomen revealing some ill-defined infiltrates in the lower bases of the lungs. HISTORY OF PRESENT ILLNESS: The patient is a 72-year-old male who is somewhat of a poor historian. He states he is short of breath on and off, quit tobacco 20 years ago. He does not wear oxygen at home. He has a cough, mostly nonproductive. He basically presented with nausea, vomiting, diarrhea. He has a prior history of CVA with some memory loss. Denies any chest pain. No pressure. PAST MEDICAL HISTORY: Obtained by reviewing the documentation. He has history of dementia, type 2 diabetes, hypertension, TIA, carotid artery stenosis, previous exposure to [place], previous CVA. PAST SURGICAL HISTORY: He is status post appendectomy, gastric bypass, pacemaker defibrillator and right below-knee amputation. PAST SURGICAL HISTORY: As above. ALLERGIES: LISTED TO PENICILLIN, FENOFIBRATE, NIACIN, AND SIMVASTATIN. REVIEW OF SYSTEMS: As indicated above, otherwise other systems could not be adequately reviewed secondary to patient's dementia. CURRENT MEDICATION: List was reviewed. Home medication list was reviewed. SOCIAL HISTORY: He states that he quit tobacco 20 years ago. No history of alcoholism. PHYSICAL EXAMINATION: GENERAL: The patient appeared to be older than his stated age. VITAL SIGNS: Stable. O2 saturation was greater than 92%, currently on room air. HEENT: Eyes, the sclerae were nonicteric. NECK: Jugular venous distention was not elevated. No lymphadenopathy. CHEST AND LUNGS: Full expansion. Slight crackles in the bases. No wheezes. CARDIOVASCULAR: Regular rate and rhythm with S1, S2, no S3. ABDOMEN: Soft, nontender, nondistended. EXTREMITIES: No clubbing or cyanosis. Evidence of previous BKA. NEUROLOGIC: The patient was awake, alert, following commands. A detailed neuro exam was not performed. LABORATORY DATA: Reviewed. White count was elevated. Hemoglobin and hematocrit were noted. Electrolytes were noted. BUN was elevated, creatinine was elevated. Troponin level was elevated. Albumin upon admission was low. UA was noted. IMPRESSION: 1. Bibasilar ill-defined infiltrate, suspect atelectasis, possibly mild congestive heart failure. 2. Nausea and vomiting, etiology unclear. 3. Cuvia-ms-adflzkg renal failure. 4. Dementia. 5. Type 2 diabetes. 6. Chronic obstructive pulmonary disease. 7. Tobacco dependence, in remission. 8. Peripheral vascular disease with previous below-knee amputation. 9. Carotid artery stenosis. 10. Status post pacemaker. 11. Elevated troponin. PLAN: Pulmonary status appears to be compensated. I do not recommend any additional workup. RECOMMENDATIONS: 1. Follow Nephrology input. 2. Follow Cardiology input. I do appreciate the privilege in sharing in this patient's care. MARITZA QUIROGA MD DR: JOANN/brandyn JOB#: [id number] / [id number]
[2018-05-28] MEDS ORDERED: INSULIN GLARGINE 300 UNITS/3 ML INSULN.PEN. SQ SCH (21:00)
[2018-05-28 22:30] VITALS: BP 131/66
[2018-05-29 03:50] VITALS: BP 130/52
[2018-05-29 04:01] LABS: BASO % 0 % (0-3); EOS # 0.1 x10^3/uL (0.0-0.7); EOS % 1 % (0-3); LYMPH # 0.6 x10^3/uL (1.0-4.8); LYMPH % 6 % (24-48); MEAN CORPUSCULAR HEMOGLOBIN 32 pg (25-35); MEAN CORPUSCULAR HGB CONC 34 g/dL (31-37); MEAN CORPUSCULAR VOLUME 94 fL (79-100); MONO # 0.8 x10^3/uL (0.0-1.1); MONO % 8 % (0-9); NEUT # 8.1 x10^3uL (1.8-7.7); NEUT % 84 % (31-73); PLATELET COUNT 201 x10^3/uL (140-400); RED CELL DISTRIBUTION WIDTH 13.9 % (11.5-14.5); WHITE BLOOD COUNT 9.6 x10^3/uL (4.0-11.0)
[2018-05-29 04:22] LABS: ALBUMIN 2.2 g/dL (3.4-5.0); ALBUMIN/GLOBULIN RATIO 0.6 (1.0-1.7); CALCIUM 8.2 mg/dL (8.5-10.1); CREATININE 2.4 mg/dL (0.7-1.3); GFR 26.7; POTASSIUM 3.4 mmol/L (3.5-5.1); TOTAL BILIRUBIN 0.2 mg/dL (0.2-1.0)
[2018-05-29 04:23] LABS: CHOLESTEROL/HDL RATIO 3.5
[2018-05-29] MEDS: HEPARIN PF for SUB-Q USE 5,000 UNIT/0.5 ML VIAL. SQ SCH ×3 (06:00→22:43)
[2018-05-29 07:00] VITALS: BP 119/48
[2018-05-29] MEDS: INSULIN LISPRO 300 UNITS/3 ML INSULN.PEN. SQ SCH ×4 (08:00→17:00)
[2018-05-29] MEDS: DULoxetine HCL 30 MG CAPSULE.DR PO SCH (08:42)
[2018-05-29] MEDS: EZETIMIBE 10 MG TABLET. PO SCH (08:42)
[2018-05-29] MEDS: PANTOPRAZOLE IV PUSH 40 MG VIAL. IVP SCH (08:43)
[2018-05-29] MEDS: GABAPENTIN 100 MG CAPSULE. PO SCH ×3 (08:43→21:02)
[2018-05-29] MEDS: amLODIPine BESYLATE 5 MG TABLET PO SCH (08:43)
[2018-05-29] MEDS: DONEPEZIL HCL 10 MG TABLET. PO SCH (08:43)
[2018-05-29] MEDS: OMEGA-3 FATTY ACIDS/FISH OIL 1,000 MG CAPSULE. PO SCH ×2 (08:43→21:02)
[2018-05-29] MEDS: MEMANTINE 10 MG TABLET. PO SCH ×2 (08:43→21:02)
[2018-05-29] MEDS: CHOLECALCIFEROL (VITAMIN D3) 1,000 UNIT TABLET PO SCH (08:43)
[2018-05-29] MEDS: CARVEDILOL 12.5 MG TABLET. PO SCH ×2 (08:44→15:09)
[2018-05-29] MEDS ORDERED: NON FORMULARY ITEM (Ubidecarenone (Co Q-10) 200 MG) PO SCH (09:00)
[2018-05-29] MEDS: ASPIRIN/DIPYRIDAMOLE 200/25MG CAP.ER.12H. PO SCH ×2 (09:00→21:02)
--- NOTE | 2018-05-29 09:02 | PDOC ---
PULMONARY PROGRESS NOTES Subjective pt not more soa off 02 Vitals Vital Signs Date Time Temp Pulse Resp B/P (MAP) Pulse Ox O2 Delivery O2 Flow Rate FiO2 05/29/18 08:44 62 119/48 05/29/18 07:00 98.3 18 90 Room Air 98.3 ROS: No Nausea, No Chest Pain, No Abdominal Pain, No Increase Cough Lungs: Clear Cardiovascular: S1, S2 Abdomen: Soft Neuro Exam: Alert Extremities: No Edema Skin: Warm Labs Laboratory Tests Test 05/28/18 10:05 05/28/18 11:40 05/28/18 14:30 05/28/18 16:39 White Blood Count 13.8 x10^3/uL (4.0-11.0) Red Blood Count 3.69 x10^6/uL (4.30-5.70) Hemoglobin 11.6 g/dL (13.0-17.5) Hematocrit 34.6 % (39.0-53.0) Mean Corpuscular Volume 94 fL (79-100) Mean Corpuscular Hemoglobin 32 pg (25-35) Mean Corpuscular Hemoglobin Concent 34 g/dL (31-37) Red Cell Distribution Width 13.7 % (11.5-14.5) Platelet Count 249 x10^3/uL (140-400) Neutrophils (%) (Auto) 87 % (31-73) Lymphocytes (%) (Auto) 5 % (24-48) Monocytes (%) (Auto) 8 % (0-9) Eosinophils (%) (Auto) 0 % (0-3) Basophils (%) (Auto) 0 % (0-3) Neutrophils # (Auto) 12.0 x10^3uL (1.8-7.7) Lymphocytes # (Auto) 0.7 x10^3/uL (1.0-4.8) Monocytes # (Auto) 1.1 x10^3/uL (0.0-1.1) Eosinophils # (Auto) 0.1 x10^3/uL (0.0-0.7) Basophils # (Auto) 0.0 x10^3/uL (0.0-0.2) Segmented Neutrophils % 86 % (35-66) Band Neutrophils % 11 % (0-9) Lymphocytes % 1 % (24-48) Monocytes % 2 % (0-10) Toxic Vacuolation Slight Dohle Bodies Present Platelet Estimate Adequate (ADEQUATE) Sodium Level 143 mmol/L (136-145) Potassium Level 3.7 mmol/L (3.5-5.1) Chloride Level 104 mmol/L (98-107) Carbon Dioxide Level 27 mmol/L (21-32) Anion Gap 12 (6-14) Blood Urea Nitrogen 34 mg/dL (8-26) Creatinine 2.9 mg/dL (0.7-1.3) Estimated GFR (Cockcroft-Gault) 21.5 BUN/Creatinine Ratio 12 (6-20) Glucose Level 161 mg/dL (70-99) Calcium Level 9.3 mg/dL (8.5-10.1) Magnesium Level 2.1 mg/dL (1.8-2.4) Total Bilirubin 0.7 mg/dL (0.2-1.0) Aspartate Amino Transf (AST/SGOT) 22 U/L (15-37) Alanine Aminotransferase (ALT/SGPT) 17 U/L (16-63) Alkaline Phosphatase 77 U/L (46-116) Troponin I Quantitative 0.303 ng/mL (0.000-0.055) 0.182 ng/mL (0.000-0.055) TO-Phz-B-Type Natriuretic Peptide 1043 pg/mL (0-124) Total Protein 6.8 g/dL (6.4-8.2) Albumin 3.2 g/dL (3.4-5.0) Albumin/Globulin Ratio 0.9 (1.0-1.7) Lipase 65 U/L (73-393) Urine Collection Type Unknown Urine Color Yellow Urine Clarity Clear Urine pH 5.5 Urine Specific [place] 1.010 Urine Protein Negative mg/dL (NEG-TRACE) Urine Glucose (UA) Negative mg/dL (NEG) Urine Ketones (Stick) Negative mg/dL (NEG) Urine Blood Negative (NEG) Urine Nitrite Negative (NEG) Urine Bilirubin Negative (NEG) Urine Urobilinogen Dipstick 0.2 mg/dL (0.2 mg/dL) Urine Leukocyte Esterase Negative (NEG) Urine RBC 0 /HPF (0-2) Urine WBC 0 /HPF (0-4) Urine Squamous Epithelial Cells Occ /LPF Urine Bacteria 0 /HPF (0-FEW) Glucose (Fingerstick) 157 mg/dL (70-99) Test 05/28/18 16:55 05/28/18 20:04 05/29/18 03:25 05/29/18 07:00 Troponin I Quantitative 0.207 ng/mL (0.000-0.055) Glucose (Fingerstick) 199 mg/dL (70-99) 52 mg/dL (70-99) White Blood Count 9.6 x10^3/uL (4.0-11.0) Red Blood Count 3.10 x10^6/uL (4.30-5.70) Hemoglobin 10.0 g/dL (13.0-17.5) Hematocrit 29.0 % (39.0-53.0) Mean Corpuscular Volume 94 fL (79-100) Mean Corpuscular Hemoglobin 32 pg (25-35) Mean Corpuscular Hemoglobin Concent 34 g/dL (31-37) Red Cell Distribution Width 13.9 % (11.5-14.5) Platelet Count 201 x10^3/uL (140-400) Neutrophils (%) (Auto) 84 % (31-73) Lymphocytes (%) (Auto) 6 % (24-48) Monocytes (%) (Auto) 8 % (0-9) Eosinophils (%) (Auto) 1 % (0-3) Basophils (%) (Auto) 0 % (0-3) Neutrophils # (Auto) 8.1 x10^3uL (1.8-7.7) Lymphocytes # (Auto) 0.6 x10^3/uL (1.0-4.8) Monocytes # (Auto) 0.8 x10^3/uL (0.0-1.1) Eosinophils # (Auto) 0.1 x10^3/uL (0.0-0.7) Basophils # (Auto) 0.0 x10^3/uL (0.0-0.2) Sodium Level 145 mmol/L (136-145) Potassium Level 3.4 mmol/L (3.5-5.1) Chloride Level 110 mmol/L (98-107) Carbon Dioxide Level 25 mmol/L (21-32) Anion Gap 10 (6-14) Blood Urea Nitrogen 31 mg/dL (8-26) Creatinine 2.4 mg/dL (0.7-1.3) Estimated GFR (Cockcroft-Gault) 26.7 BUN/Creatinine Ratio 13 (6-20) Glucose Level 99 mg/dL (70-99) Calcium Level 8.2 mg/dL (8.5-10.1) Total Bilirubin 0.2 mg/dL (0.2-1.0) Aspartate Amino Transf (AST/SGOT) 11 U/L (15-37) Alanine Aminotransferase (ALT/SGPT) 13 U/L (16-63) Alkaline Phosphatase 60 U/L (46-116) Total Protein 6.0 g/dL (6.4-8.2) Albumin 2.2 g/dL (3.4-5.0) Albumin/Globulin Ratio 0.6 (1.0-1.7) Triglycerides Level 125 mg/dL (0-150) Cholesterol Level 88 mg/dL (0-200) LDL Cholesterol, Calculated 38 mg/dL (0-100) VLDL Cholesterol, Calculated 25 mg/dL (0-40) Non-HDL Cholesterol Calculated 63 mg/dL (0-129) HDL Cholesterol 25 mg/dL (40-60) Cholesterol/HDL Ratio 3.5 Laboratory Tests Test 05/28/18 10:05 05/28/18 11:40 05/28/18 14:30 05/28/18 16:39 White Blood Count 13.8 x10^3/uL (4.0-11.0) Red Blood Count 3.69 x10^6/uL (4.30-5.70) Hemoglobin 11.6 g/dL (13.0-17.5) Hematocrit 34.6 % (39.0-53.0) Mean Corpuscular Volume 94 fL (79-100) Mean Corpuscular Hemoglobin 32 pg (25-35) Mean Corpuscular Hemoglobin Concent 34 g/dL (31-37) Red Cell Distribution Width 13.7 % (11.5-14.5) Platelet Count 249 x10^3/uL (140-400) Neutrophils (%) (Auto) 87 % (31-73) Lymphocytes (%) (Auto) 5 % (24-48) Monocytes (%) (Auto) 8 % (0-9) Eosinophils (%) (Auto) 0 % (0-3) Basophils (%) (Auto) 0 % (0-3) Neutrophils # (Auto) 12.0 x10^3uL (1.8-7.7) Lymphocytes # (Auto) 0.7 x10^3/uL (1.0-4.8) Monocytes # (Auto) 1.1 x10^3/uL (0.0-1.1) Eosinophils # (Auto) 0.1 x10^3/uL (0.0-0.7) Basophils # (Auto) 0.0 x10^3/uL (0.0-0.2) Segmented Neutrophils % 86 % (35-66) Band Neutrophils % 11 % (0-9) Lymphocytes % 1 % (24-48) Monocytes % 2 % (0-10) Toxic Vacuolation Slight Dohle Bodies Present Platelet Estimate Adequate (ADEQUATE) Sodium Level 143 mmol/L (136-145) Potassium Level 3.7 mmol/L (3.5-5.1) Chloride Level 104 mmol/L (98-107) Carbon Dioxide Level 27 mmol/L (21-32) Anion Gap 12 (6-14) Blood Urea Nitrogen 34 mg/dL (8-26) Creatinine 2.9 mg/dL (0.7-1.3) Estimated GFR (Cockcroft-Gault) 21.5 BUN/Creatinine Ratio 12 (6-20) Glucose Level 161 mg/dL (70-99) Calcium Level 9.3 mg/dL (8.5-10.1) Magnesium Level 2.1 mg/dL (1.8-2.4) Total Bilirubin 0.7 mg/dL (0.2-1.0) Aspartate Amino Transf (AST/SGOT) 22 U/L (15-37) Alanine Aminotransferase (ALT/SGPT) 17 U/L (16-63) Alkaline Phosphatase 77 U/L (46-116) Troponin I Quantitative 0.303 ng/mL (0.000-0.055) 0.182 ng/mL (0.000-0.055) EQ-Tdr-J-Type Natriuretic Peptide 1043 pg/mL (0-124) Total Protein 6.8 g/dL (6.4-8.2) Albumin 3.2 g/dL (3.4-5.0) Albumin/Globulin Ratio 0.9 (1.0-1.7) Lipase 65 U/L (73-393) Urine Collection Type Unknown Urine Color Yellow Urine Clarity Clear Urine pH 5.5 Urine Specific [place] 1.010 Urine Protein Negative mg/dL (NEG-TRACE) Urine Glucose (UA) Negative mg/dL (NEG) Urine Ketones (Stick) Negative mg/dL (NEG) Urine Blood Negative (NEG) Urine Nitrite Negative (NEG) Urine Bilirubin Negative (NEG) Urine Urobilinogen Dipstick 0.2 mg/dL (0.2 mg/dL) Urine Leukocyte Esterase Negative (NEG) Urine RBC 0 /HPF (0-2) Urine WBC 0 /HPF (0-4) Urine Squamous Epithelial Cells Occ /LPF Urine Bacteria 0 /HPF (0-FEW) Glucose (Fingerstick) 157 mg/dL (70-99) Test 05/28/18 16:55 05/28/18 20:04 05/29/18 03:25 05/29/18 07:00 Troponin I Quantitative 0.207 ng/mL (0.000-0.055) Glucose (Fingerstick) 199 mg/dL (70-99) 52 mg/dL (70-99) White Blood Count 9.6 x10^3/uL (4.0-11.0) Red Blood Count 3.10 x10^6/uL (4.30-5.70) Hemoglobin 10.0 g/dL (13.0-17.5) Hematocrit 29.0 % (39.0-53.0) Mean Corpuscular Volume 94 fL (79-100) Mean Corpuscular Hemoglobin 32 pg (25-35) Mean Corpuscular Hemoglobin Concent 34 g/dL (31-37) Red Cell Distribution Width 13.9 % (11.5-14.5) Platelet Count 201 x10^3/uL (140-400) Neutrophils (%) (Auto) 84 % (31-73) Lymphocytes (%) (Auto) 6 % (24-48) Monocytes (%) (Auto) 8 % (0-9) Eosinophils (%) (Auto) 1 % (0-3) Basophils (%) (Auto) 0 % (0-3) Neutrophils # (Auto) 8.1 x10^3uL (1.8-7.7) Lymphocytes # (Auto) 0.6 x10^3/uL (1.0-4.8) Monocytes # (Auto) 0.8 x10^3/uL (0.0-1.1) Eosinophils # (Auto) 0.1 x10^3/uL (0.0-0.7) Basophils # (Auto) 0.0 x10^3/uL (0.0-0.2) Sodium Level 145 mmol/L (136-145) Potassium Level 3.4 mmol/L (3.5-5.1) Chloride Level 110 mmol/L (98-107) Carbon Dioxide Level 25 mmol/L (21-32) Anion Gap 10 (6-14) Blood Urea Nitrogen 31 mg/dL (8-26) Creatinine 2.4 mg/dL (0.7-1.3) Estimated GFR (Cockcroft-Gault) 26.7 BUN/Creatinine Ratio 13 (6-20) Glucose Level 99 mg/dL (70-99) Calcium Level 8.2 mg/dL (8.5-10.1) Total Bilirubin 0.2 mg/dL (0.2-1.0) Aspartate Amino Transf (AST/SGOT) 11 U/L (15-37) Alanine Aminotransferase (ALT/SGPT) 13 U/L (16-63) Alkaline Phosphatase 60 U/L (46-116) Total Protein 6.0 g/dL (6.4-8.2) Albumin 2.2 g/dL (3.4-5.0) Albumin/Globulin Ratio 0.6 (1.0-1.7) Triglycerides Level 125 mg/dL (0-150) Cholesterol Level 88 mg/dL (0-200) LDL Cholesterol, Calculated 38 mg/dL (0-100) VLDL Cholesterol, Calculated 25 mg/dL (0-40) Non-HDL Cholesterol Calculated 63 mg/dL (0-129) HDL Cholesterol 25 mg/dL (40-60) Cholesterol/HDL Ratio 3.5 Medications Active Scripts Medications Dose Route/Sig Max Daily Dose Days Date Category Cyclobenzaprine Hcl 10 Mg Tablet 1 Tab PO PRN TID PRN 03/03/18 Reported Lantus Solostar (Insulin Glargine,Hum.rec.anlog) 100 Unit/1 Ml Insuln.pen 75 Units SQ QHS 30 01/12/18 Rx Cymbalta (Duloxetine Hcl) 30 Mg Capsule.dr 30 Mg PO DAILY 30 01/12/18 Rx Namenda (Memantine Hcl) 10 Mg Tablet 10 Mg PO BID 12/25/17 Reported Hydrocodone-Apap 5-325 (Hydrocodone Bit/Acetaminophen) 1 Each Tablet 1-2 Tab PO PRN Q6HRS PRN 5 10/31/17 Rx Hydrocodone-Apap 5-325 (Hydrocodone Bit/Acetaminophen) 1 Each Tablet 1 Tab PO PRN Q4HRS PRN 09/17/16 Rx Atorvastatin Calcium 40 Mg Tablet 1 Tab PO DAILY 09/14/16 Rx Novolog Flexpen (Insulin Aspart) 100 Unit/1 Ml Insuln.pen 25 Unit SQ TIDAC 09/14/16 Rx D3 + K2 Dots 1,000 Units Tab (Vitamin D3/Vitamin K2) 1 Each Tab.rapdis 1 Each PO DAILY 09/14/16 Reported Fish Oil 1,000 Mg Capsule ([place]-3 Fatty Acids/Fish Oil) 1 Each Capsule 1 Each PO BID 09/14/16 Reported Donepezil Hcl 10 Mg Tablet 1 Tab PO DAILY 09/14/16 Reported Bentyl (Dicyclomine Hcl) 10 Mg Capsule 10 Mg PO QID PRN 09/07/16 Rx Aggrenox 25 Mg-200 Mg Capsule (Aspirin/Dipyridamole) 1 Each Cpmp.12hr 1 Cap PO BID 04/12/14 Reported Cozaar (Losartan Potassium) 100 Mg Tablet 1 Tab PO DAILY 04/12/14 Reported Lasix (Furosemide) 20 Mg Tablet 1 Tab PO DAILY 04/12/14 Reported Zetia (Ezetimibe) 10 Mg Tablet 1 Tab PO DAILY 04/12/14 Reported Potassium Chloride 10 Meq Capsule.er 1 Cap PO DAILY 04/12/14 Reported Magnesium Gluconate 30 Mg Tablet 250 Mg PO 04/12/14 Reported Co Q-10 (Ubidecarenone) 200 Mg Capsule 200 Mg PO DAILY 04/12/14 Reported Impression . IMPRESSION: 1. Bibasilar ill-defined infiltrate, suspect atelectasis, possibly mild congestive heart failure. 2. Nausea and vomiting, etiology unclear. 3. Cstxp-pn-sgqrdis renal failure. 4. Dementia. 5. Type 2 diabetes. 6. Chronic obstructive pulmonary disease. 7. Tobacco dependence, in remission. 8. Peripheral vascular disease with previous below-knee amputation. 9. Carotid artery stenosis. 10. Status post pacemaker. 11. Elevated troponin. Plan . Pulmonary status appears to be compensated. I do not recommend any additional workup. ok to d/c from my standpoint MARITZA QUIROGA MD May 29, 2018 09:02
--- NOTE | 2018-05-29 09:39 | PDOC ---
CHRISTIANA THOMPSON GAME DES[employer] INSTRUCTOR 05/29/18 0939: CARDIO Progress Notes Date and Time Date of Service 05/29/2018 Time of Evaluation 0929 Vitals Vitals Vital Signs Date Time Temp Pulse Resp B/P (MAP) Pulse Ox O2 Delivery O2 Flow Rate FiO2 05/29/18 08:44 62 119/48 05/29/18 07:00 98.3 18 90 Room Air 98.3 Weight Weight [ ] Input and Output Intake and Output Intake and Output 05/29/18 07:00 Intake Total 440 ml Output Total 900 ml Balance -460 ml Intake Oral 440 ml Output Urine Total 900 ml Laboratory Labs Laboratory Tests Test 05/28/18 10:05 05/28/18 11:40 05/28/18 14:30 05/28/18 16:39 White Blood Count 13.8 x10^3/uL (4.0-11.0) Red Blood Count 3.69 x10^6/uL (4.30-5.70) Hemoglobin 11.6 g/dL (13.0-17.5) Hematocrit 34.6 % (39.0-53.0) Mean Corpuscular Volume 94 fL (79-100) Mean Corpuscular Hemoglobin 32 pg (25-35) Mean Corpuscular Hemoglobin Concent 34 g/dL (31-37) Red Cell Distribution Width 13.7 % (11.5-14.5) Platelet Count 249 x10^3/uL (140-400) Neutrophils (%) (Auto) 87 % (31-73) Lymphocytes (%) (Auto) 5 % (24-48) Monocytes (%) (Auto) 8 % (0-9) Eosinophils (%) (Auto) 0 % (0-3) Basophils (%) (Auto) 0 % (0-3) Neutrophils # (Auto) 12.0 x10^3uL (1.8-7.7) Lymphocytes # (Auto) 0.7 x10^3/uL (1.0-4.8) Monocytes # (Auto) 1.1 x10^3/uL (0.0-1.1) Eosinophils # (Auto) 0.1 x10^3/uL (0.0-0.7) Basophils # (Auto) 0.0 x10^3/uL (0.0-0.2) Segmented Neutrophils % 86 % (35-66) Band Neutrophils % 11 % (0-9) Lymphocytes % 1 % (24-48) Monocytes % 2 % (0-10) Toxic Vacuolation Slight Dohle Bodies Present Platelet Estimate Adequate (ADEQUATE) Sodium Level 143 mmol/L (136-145) Potassium Level 3.7 mmol/L (3.5-5.1) Chloride Level 104 mmol/L (98-107) Carbon Dioxide Level 27 mmol/L (21-32) Anion Gap 12 (6-14) Blood Urea Nitrogen 34 mg/dL (8-26) Creatinine 2.9 mg/dL (0.7-1.3) Estimated GFR (Cockcroft-Gault) 21.5 BUN/Creatinine Ratio 12 (6-20) Glucose Level 161 mg/dL (70-99) Calcium Level 9.3 mg/dL (8.5-10.1) Magnesium Level 2.1 mg/dL (1.8-2.4) Total Bilirubin 0.7 mg/dL (0.2-1.0) Aspartate Amino Transf (AST/SGOT) 22 U/L (15-37) Alanine Aminotransferase (ALT/SGPT) 17 U/L (16-63) Alkaline Phosphatase 77 U/L (46-116) Troponin I Quantitative 0.303 ng/mL (0.000-0.055) 0.182 ng/mL (0.000-0.055) HW-Hbg-V-Type Natriuretic Peptide 1043 pg/mL (0-124) Total Protein 6.8 g/dL (6.4-8.2) Albumin 3.2 g/dL (3.4-5.0) Albumin/Globulin Ratio 0.9 (1.0-1.7) Lipase 65 U/L (73-393) Urine Collection Type Unknown Urine Color Yellow Urine Clarity Clear Urine pH 5.5 Urine Specific [place] 1.010 Urine Protein Negative mg/dL (NEG-TRACE) Urine Glucose (UA) Negative mg/dL (NEG) Urine Ketones (Stick) Negative mg/dL (NEG) Urine Blood Negative (NEG) Urine Nitrite Negative (NEG) Urine Bilirubin Negative (NEG) Urine Urobilinogen Dipstick 0.2 mg/dL (0.2 mg/dL) Urine Leukocyte Esterase Negative (NEG) Urine RBC 0 /HPF (0-2) Urine WBC 0 /HPF (0-4) Urine Squamous Epithelial Cells Occ /LPF Urine Bacteria 0 /HPF (0-FEW) Glucose (Fingerstick) 157 mg/dL (70-99) Test 05/28/18 16:55 05/28/18 20:04 05/29/18 03:25 05/29/18 07:00 Troponin I Quantitative 0.207 ng/mL (0.000-0.055) Glucose (Fingerstick) 199 mg/dL (70-99) 52 mg/dL (70-99) White Blood Count 9.6 x10^3/uL (4.0-11.0) Red Blood Count 3.10 x10^6/uL (4.30-5.70) Hemoglobin 10.0 g/dL (13.0-17.5) Hematocrit 29.0 % (39.0-53.0) Mean Corpuscular Volume 94 fL (79-100) Mean Corpuscular Hemoglobin 32 pg (25-35) Mean Corpuscular Hemoglobin Concent 34 g/dL (31-37) Red Cell Distribution Width 13.9 % (11.5-14.5) Platelet Count 201 x10^3/uL (140-400) Neutrophils (%) (Auto) 84 % (31-73) Lymphocytes (%) (Auto) 6 % (24-48) Monocytes (%) (Auto) 8 % (0-9) Eosinophils (%) (Auto) 1 % (0-3) Basophils (%) (Auto) 0 % (0-3) Neutrophils # (Auto) 8.1 x10^3uL (1.8-7.7) Lymphocytes # (Auto) 0.6 x10^3/uL (1.0-4.8) Monocytes # (Auto) 0.8 x10^3/uL (0.0-1.1) Eosinophils # (Auto) 0.1 x10^3/uL (0.0-0.7) Basophils # (Auto) 0.0 x10^3/uL (0.0-0.2) Sodium Level 145 mmol/L (136-145) Potassium Level 3.4 mmol/L (3.5-5.1) Chloride Level 110 mmol/L (98-107) Carbon Dioxide Level 25 mmol/L (21-32) Anion Gap 10 (6-14) Blood Urea Nitrogen 31 mg/dL (8-26) Creatinine 2.4 mg/dL (0.7-1.3) Estimated GFR (Cockcroft-Gault) 26.7 BUN/Creatinine Ratio 13 (6-20) Glucose Level 99 mg/dL (70-99) Calcium Level 8.2 mg/dL (8.5-10.1) Total Bilirubin 0.2 mg/dL (0.2-1.0) Aspartate Amino Transf (AST/SGOT) 11 U/L (15-37) Alanine Aminotransferase (ALT/SGPT) 13 U/L (16-63) Alkaline Phosphatase 60 U/L (46-116) Total Protein 6.0 g/dL (6.4-8.2) Albumin 2.2 g/dL (3.4-5.0) Albumin/Globulin Ratio 0.6 (1.0-1.7) Triglycerides Level 125 mg/dL (0-150) Cholesterol Level 88 mg/dL (0-200) LDL Cholesterol, Calculated 38 mg/dL (0-100) VLDL Cholesterol, Calculated 25 mg/dL (0-40) Non-HDL Cholesterol Calculated 63 mg/dL (0-129) HDL Cholesterol 25 mg/dL (40-60) Cholesterol/HDL Ratio 3.5 Physical Exam HEENT: Neck Supple W Full Motion Chest: Symmetric LUNGS: Other (diminished in bases anteriorly) Heart: RRR, other (V paced) Abdomen: Soft N/T Extremities: No Edema, Other Neurology: other (arouses easily) Assessment Assessment 1. NSTEMI --elevated troponin in the setting of ENRIQUE; troponins 0.3 to 0.18 to 0.2; likely demand ischemia --check TTE to re-evaluate LVEF --low risk MPI in February 2. ischemic CMP with ICD --[facility] to interrogate --continue medical management; hold ARB due to renal function 3. CAD --chest pain with cough --continue aspirin and statin therapy 4. HTN --control with meds 5. HLD --LDLs controlled with statin therapy JD MONGE MD 05/29/18 [id number]: CARDIO Progress Notes Assessment Assessment Patient seen and examined. Agree with SYRUP FILTERER's assessment and plan. Slight troponin elevation probably demand ischemia 2-D echo showed LVEF 40-45% Recent Lexiscan nuclear stress test did not show any significant ischemia Recent device check showed normal function No further cardiac workup is indicated at this time CHRISTIANA THOMPSON APRN May 29, 2018 09:39 JD MONGE MD May 29, 2018 14:34
--- NOTE | 2018-05-29 10:01 | PDOC ---
SUBJECTIVE ROS States feeling better OBJECTIVE Vital Signs Vital Signs Date Time Temp Pulse Resp B/P (MAP) Pulse Ox O2 Delivery O2 Flow Rate FiO2 05/29/18 08:44 62 119/48 05/29/18 07:00 98.3 18 90 Room Air 98.3 I & 0 Intake and Output 05/29/18 07:00 Intake Total 440 ml Output Total 900 ml Balance -460 ml Intake Oral 440 ml Output Urine Total 900 ml PHYSICAL EXAM Physical Exam GEN: NAD HEEN: OM dry No JVD, supple CVS: S1S2, RESP: No Rales, No Rhonchi,[nO Acc. Muscle Use GI: BS + ve, NO Bruit, Non Tender, Non Distended : No CVA tenderness, No Suprapubic Tenderness, No Rios Neuro- dementia Skin No rash DIAGNOSIS/ASSESSMENT Assessment & Plan ENRIQUE - On CKD Likely Pre-renal Improving with IVF, not at baseline Yesterday Initial Bladder scan showed 200 + Urine Good UOP since, No Rios ? NSTEMI /Ischemic eval - as per card ADDIE prophylaxis Would recommend to hold off cath if possible (after weighing risk and benefit ) till Renal function at baseline If planning to take him to [facility]- Recommend Vol Expansion with IV NS 1ml / kg /hr for 6-12 hrs preprocedure, intra-procedure and 6-12 hrs post procedure ( if Not in CHF) Non ionic low osmolol agents at lower doses Recommend Holding Lasix and ARB CKD stage 3 - since 2017 Baseline 1.2-1.6 Hypokalemia- mild Replace as needed HTN- On Losartan and lasix at Home Hold Generalized abdominal pain, nausea vomiting and diarrhea. As per primary DM Dementia Discussed with RN COMMENT/RELEVANT DATA Meds Current Medications Medications (Trade) Dose Ordered Sig/Sylwia Start Time Stop Time Status Last Admin Dose Admin Amlodipine Besylate (Norvasc) 5 mg DAILY 05/29/18 09:00 05/29/18 08:43 5 MG Aspirin (Katey Aspirin) 325 mg 1X ONCE 05/28/18 11:45 05/28/18 11:46 DC 05/28/18 12:17 325 MG Atorvastatin Calcium (Lipitor) 40 mg QHS 05/28/18 21:00 05/28/18 19:58 40 MG Carvedilol (Coreg) 25 mg BIDWMEALS 05/28/18 17:00 05/29/18 08:44 25 MG Dipyridamole/ Aspirin (Aggrenox) 1 cap BID 05/28/18 21:00 05/28/18 19:59 1 CAP Donepezil HCl (Aricept) 10 mg DAILY 05/29/18 09:00 05/29/18 08:43 10 MG Duloxetine HCl (Cymbalta) 30 mg DAILY 05/29/18 09:00 05/29/18 08:42 30 MG EZETIMIBE (Zetia) 10 mg DAILY 05/29/18 09:00 05/29/18 08:42 10 MG Fish Oil (Fish Oil) 1,000 mg BID 05/28/18 21:00 05/29/18 08:43 1,000 MG Gabapentin (Neurontin) 100 mg TID 05/28/18 21:00 05/29/18 08:43 100 MG Heparin Sodium (Porcine) (Heparin Sq) 5,000 unit Q8HRS 05/28/18 14:00 05/29/18 06:00 5,000 UNIT Influenza Virus Vaccine (Afluria Trivalent [id number] Syringe) 0.5 ml ONCE ONCE 05/28/18 20:00 05/28/18 20:01 DC Info (CONTRAST GIVEN -- Rx MONITORING) 1 each PRN DAILY PRN 05/28/18 11:15 05/30/18 11:14 Info (FLU VACCINE SCREEN per RX) 1 each PRN 1X PRN 05/28/18 19:00 UNV Insulin Glargine (Lantus) 75 units QHS 05/28/18 21:00 05/28/18 20:11 75 UNITS Insulin Human Lispro (HumaLOG) 25 units TIDWMEALS 05/28/18 17:00 Iohexol (Omnipaque 240 Mg/ml) 30 ml 1X ONCE 05/28/18 11:15 05/28/18 11:16 DC Iohexol (Omnipaque 300 Mg/ml) 75 ml 1X ONCE 05/28/18 11:15 05/28/18 11:16 DC Levofloxacin/ Dextrose 50 ml @ 50 mls/hr 1X ONCE 05/28/18 14:00 05/28/18 14:59 DC 05/28/18 13:30 50 MLS/HR Memantine (Namenda) 10 mg BID 05/28/18 21:00 05/29/18 08:43 10 MG Morphine Sulfate (Morphine Sulfate) 2 mg PRN Q2HR PRN 05/28/18 14:15 05/29/18 14:14 05/28/18 19:58 2 MG Non-Formulary Medication (Ubidecarenone (Co Q-10)) 200 mg DAILY 05/29/18 09:00 UNV Ondansetron HCl (Zofran) 4 mg PRN Q8HRS PRN 05/28/18 14:15 05/29/18 14:14 Pantoprazole Sodium (PROTONIX VIAL for IV PUSH) 40 mg DAILYAC 05/29/18 07:30 05/29/18 08:43 40 MG Sodium Chloride 1,000 ml @ 100 mls/hr 1X ONCE 05/28/18 14:15 05/29/18 00:14 DC 05/28/18 17:14 100 MLS/HR Vitamin D (Vitamin D3) 1,000 unit DAILY 05/29/18 09:00 05/29/18 08:43 1,000 UNIT Lab Laboratory Tests Test 05/28/18 10:05 05/28/18 11:40 05/28/18 14:30 05/28/18 16:39 White Blood Count 13.8 x10^3/uL (4.0-11.0) Red Blood Count 3.69 x10^6/uL (4.30-5.70) Hemoglobin 11.6 g/dL (13.0-17.5) Hematocrit 34.6 % (39.0-53.0) Mean Corpuscular Volume 94 fL (79-100) Mean Corpuscular Hemoglobin 32 pg (25-35) Mean Corpuscular Hemoglobin Concent 34 g/dL (31-37) Red Cell Distribution Width 13.7 % (11.5-14.5) Platelet Count 249 x10^3/uL (140-400) Neutrophils (%) (Auto) 87 % (31-73) Lymphocytes (%) (Auto) 5 % (24-48) Monocytes (%) (Auto) 8 % (0-9) Eosinophils (%) (Auto) 0 % (0-3) Basophils (%) (Auto) 0 % (0-3) Neutrophils # (Auto) 12.0 x10^3uL (1.8-7.7) Lymphocytes # (Auto) 0.7 x10^3/uL (1.0-4.8) Monocytes # (Auto) 1.1 x10^3/uL (0.0-1.1) Eosinophils # (Auto) 0.1 x10^3/uL (0.0-0.7) Basophils # (Auto) 0.0 x10^3/uL (0.0-0.2) Segmented Neutrophils % 86 % (35-66) Band Neutrophils % 11 % (0-9) Lymphocytes % 1 % (24-48) Monocytes % 2 % (0-10) Toxic Vacuolation Slight Dohle Bodies Present Platelet Estimate Adequate (ADEQUATE) Sodium Level 143 mmol/L (136-145) Potassium Level 3.7 mmol/L (3.5-5.1) Chloride Level 104 mmol/L (98-107) Carbon Dioxide Level 27 mmol/L (21-32) Anion Gap 12 (6-14) Blood Urea Nitrogen 34 mg/dL (8-26) Creatinine 2.9 mg/dL (0.7-1.3) Estimated GFR (Cockcroft-Gault) 21.5 BUN/Creatinine Ratio 12 (6-20) Glucose Level 161 mg/dL (70-99) Calcium Level 9.3 mg/dL (8.5-10.1) Magnesium Level 2.1 mg/dL (1.8-2.4) Total Bilirubin 0.7 mg/dL (0.2-1.0) Aspartate Amino Transf (AST/SGOT) 22 U/L (15-37) Alanine Aminotransferase (ALT/SGPT) 17 U/L (16-63) Alkaline Phosphatase 77 U/L (46-116) Troponin I Quantitative 0.303 ng/mL (0.000-0.055) 0.182 ng/mL (0.000-0.055) QR-Gnh-M-Type Natriuretic Peptide 1043 pg/mL (0-124) Total Protein 6.8 g/dL (6.4-8.2) Albumin 3.2 g/dL (3.4-5.0) Albumin/Globulin Ratio 0.9 (1.0-1.7) Lipase 65 U/L (73-393) Urine Collection Type Unknown Urine Color Yellow Urine Clarity Clear Urine pH 5.5 Urine Specific [place] 1.010 Urine Protein Negative mg/dL (NEG-TRACE) Urine Glucose (UA) Negative mg/dL (NEG) Urine Ketones (Stick) Negative mg/dL (NEG) Urine Blood Negative (NEG) Urine Nitrite Negative (NEG) Urine Bilirubin Negative (NEG) Urine Urobilinogen Dipstick 0.2 mg/dL (0.2 mg/dL) Urine Leukocyte Esterase Negative (NEG) Urine RBC 0 /HPF (0-2) Urine WBC 0 /HPF (0-4) Urine Squamous Epithelial Cells Occ /LPF Urine Bacteria 0 /HPF (0-FEW) Glucose (Fingerstick) 157 mg/dL (70-99) Test 05/28/18 16:55 05/28/18 20:04 05/29/18 03:25 05/29/18 07:00 Troponin I Quantitative 0.207 ng/mL (0.000-0.055) Glucose (Fingerstick) 199 mg/dL (70-99) 52 mg/dL (70-99) White Blood Count 9.6 x10^3/uL (4.0-11.0) Red Blood Count 3.10 x10^6/uL (4.30-5.70) Hemoglobin 10.0 g/dL (13.0-17.5) Hematocrit 29.0 % (39.0-53.0) Mean Corpuscular Volume 94 fL (79-100) Mean Corpuscular Hemoglobin 32 pg (25-35) Mean Corpuscular Hemoglobin Concent 34 g/dL (31-37) Red Cell Distribution Width 13.9 % (11.5-14.5) Platelet Count 201 x10^3/uL (140-400) Neutrophils (%) (Auto) 84 % (31-73) Lymphocytes (%) (Auto) 6 % (24-48) Monocytes (%) (Auto) 8 % (0-9) Eosinophils (%) (Auto) 1 % (0-3) Basophils (%) (Auto) 0 % (0-3) Neutrophils # (Auto) 8.1 x10^3uL (1.8-7.7) Lymphocytes # (Auto) 0.6 x10^3/uL (1.0-4.8) Monocytes # (Auto) 0.8 x10^3/uL (0.0-1.1) Eosinophils # (Auto) 0.1 x10^3/uL (0.0-0.7) Basophils # (Auto) 0.0 x10^3/uL (0.0-0.2) Sodium Level 145 mmol/L (136-145) Potassium Level 3.4 mmol/L (3.5-5.1) Chloride Level 110 mmol/L (98-107) Carbon Dioxide Level 25 mmol/L (21-32) Anion Gap 10 (6-14) Blood Urea Nitrogen 31 mg/dL (8-26) Creatinine 2.4 mg/dL (0.7-1.3) Estimated GFR (Cockcroft-Gault) 26.7 BUN/Creatinine Ratio 13 (6-20) Glucose Level 99 mg/dL (70-99) Calcium Level 8.2 mg/dL (8.5-10.1) Total Bilirubin 0.2 mg/dL (0.2-1.0) Aspartate Amino Transf (AST/SGOT) 11 U/L (15-37) Alanine Aminotransferase (ALT/SGPT) 13 U/L (16-63) Alkaline Phosphatase 60 U/L (46-116) Total Protein 6.0 g/dL (6.4-8.2) Albumin 2.2 g/dL (3.4-5.0) Albumin/Globulin Ratio 0.6 (1.0-1.7) Triglycerides Level 125 mg/dL (0-150) Cholesterol Level 88 mg/dL (0-200) LDL Cholesterol, Calculated 38 mg/dL (0-100) VLDL Cholesterol, Calculated 25 mg/dL (0-40) Non-HDL Cholesterol Calculated 63 mg/dL (0-129) HDL Cholesterol 25 mg/dL (40-60) Cholesterol/HDL Ratio 3.5 Results All relevant outside records, renal labs, imaging studies, telemetry/EKG's were reviewed. ELVI LICONA MD May 29, 2018 10:01
[2018-05-29 11:00] VITALS: BP 111/53
[2018-05-29] MEDS: DEXTROSE 50% 25 GM / 50ML DISP.SYRIN. IV PRN ×2 (11:31→15:16)
--- NOTE | 2018-05-29 11:44 | CARD ---
MR#: [id number] Date of Study: 05/29/2018 Ordering Physician: CHRISTIANA THOMPSON, Referring Physician: ELIZABETH ALMARAZ, Tech: Nikkie Palmer APPROVED REPORT EXAM: Two-dimensional and M-mode echocardiogram with Doppler and color Doppler. Other Information Quality : FairHR: 56bpm Rhythm : NSR INDICATION Non STEMI 2D DIMENSIONS RVDd2.5 (2.9-3.5cm)IVSd2.5 (0.7-1.1cm) Aortic Root(2D)2.8 (2.0-3.7cm)LVDd5.7 (3.9-5.9cm) LVOT Diameter2.1 (1.8-2.4cm)PWd1.2 (0.7-1.1cm) LVDs3.3 (2.5-4.0cm)FS (%) 41.8 % SV115.2 ml Aortic Valve AoV Peak Rahul.103.0cm/sAoV VTI23.6cm AO Peak GR.4.2mmHgLVOT VTI 15.02cm AO Mean GR.2mmHg Mitral Valve MV E Rqnmifpq69.1cm/sMV DECEL [id number] MV A Hlabgiaq08.3cm/sE/A Ratio1.9 TDI Lateral E' P. V9.98cm/sMedial E' P. V8.43cm/s E/Lateral E'9.0E/Medial E'10.7 Tricuspid Valve TR P. [id number]/sRAP [id number] TR Peak Gr.[id number] Pulmonary Vein PVa [id number] LEFT VENTRICLE Technically difficult study. The left ventricle is normal size. There is normal left ventricular wall thickness. The left ventricular systolic function is mildly decreased. The Ejection Fraction is 40-4 5%. There is mild hypokinesis of the distal septal and apical perry. Transmitral Doppler flow pattern is normal for age. RIGHT VENTRICLE The right ventricle is normal size. There is normal right ventricular wall thickness. The right ventr icular systolic function is normal. Probable device lead in the right heart. ATRIA The left atrium size is normal. The right atrium size is normal. The interatrial septum is intact wit h no evidence for an atrial septal defect or patent foramen ovale as noted on 2-D or Doppler imaging. AORTIC VALVE The aortic valve is normal in structure and function. Doppler and Color Flow revealed no significant aortic regurgitation. There is no significant aortic valvular stenosis. MITRAL VALVE The mitral valve is normal in structure and function. There is no mitral valve stenosis. Doppler and Color-flow revealed trace to mild mitral regurgitation. TRICUSPID VALVE The tricuspid valve is not well visualized. Doppler and Color Flow revealed trace to mild tricuspid r egurgitation. PULMONIC VALVE The pulmonic valve is not well visualized. Doppler and Color Flow revealed trace pulmonic valvular re gurgitation. GREAT VESSELS The aortic root is normal in size. Normal pulmonary venous flow (Doppler). The IVC is normal in size and collapses >50% with inspiration. PERICARDIAL EFFUSION There is no evidence of significant pericardial effusion. Critical Notification Critical Value: No <Conclusion> Technically difficult study. The left ventricle is normal size. The left ventricular systolic function is mildly decreased. The Ejection Fraction is 40-45%. There is mild hypokinesis of the distal septal and apical perry. Probable device lead in the right heart. There is no significant aortic valvular stenosis. Doppler and Color Flow revealed no significant aortic regurgitation. Doppler and Color-flow revealed trace to mild mitral regurgitation. Doppler and Color Flow revealed trace to mild tricuspid regurgitation. Signed by : Roberto Julio MD Electronically Approved : 05/29/2018 11:43:10
[2018-05-29 15:22] VITALS: BP 93/56
--- NOTE | 2018-05-29 17:08 | PDOC ---
PROGRESS NOTES Chief Complaint Chief Complaint #Bacterial Pneumonia gram pos #Hyopglycemia #Diabetes Mellitus type 2 #Hypertension #Mod Cognitive impairment #acute kidney injury Plan - azithromycin iv - decrease insulin lantus and novolog - pt/ot - follow indices iv fluids - see orders History of Present Illness History of Present Illness the patient is doing well, he has slow mentation, he states he gets round with his prosthesis and the patient denies any significant pain, still has cough non productive Vitals Vitals Vital Signs Date Time Temp Pulse Resp B/P (MAP) Pulse Ox O2 Delivery O2 Flow Rate FiO2 05/29/18 15:22 97.8 49 16 93/56 (68) 90 Room Air 97.8 Physical Exam General: Cooperative, No acute distress Heart: Normal S1, Normal S2 Lungs: Clear Abdomen: Soft Extremities: No edema Skin: No rashes Labs LABS Laboratory Tests Test 05/28/18 20:04 05/29/18 03:25 05/29/18 07:00 05/29/18 11:14 Glucose (Fingerstick) 199 mg/dL (70-99) 52 mg/dL (70-99) 49 mg/dL (70-99) White Blood Count 9.6 x10^3/uL (4.0-11.0) Red Blood Count 3.10 x10^6/uL (4.30-5.70) Hemoglobin 10.0 g/dL (13.0-17.5) Hematocrit 29.0 % (39.0-53.0) Mean Corpuscular Volume 94 fL (79-100) Mean Corpuscular Hemoglobin 32 pg (25-35) Mean Corpuscular Hemoglobin Concent 34 g/dL (31-37) Red Cell Distribution Width 13.9 % (11.5-14.5) Platelet Count 201 x10^3/uL (140-400) Neutrophils (%) (Auto) 84 % (31-73) Lymphocytes (%) (Auto) 6 % (24-48) Monocytes (%) (Auto) 8 % (0-9) Eosinophils (%) (Auto) 1 % (0-3) Basophils (%) (Auto) 0 % (0-3) Neutrophils # (Auto) 8.1 x10^3uL (1.8-7.7) Lymphocytes # (Auto) 0.6 x10^3/uL (1.0-4.8) Monocytes # (Auto) 0.8 x10^3/uL (0.0-1.1) Eosinophils # (Auto) 0.1 x10^3/uL (0.0-0.7) Basophils # (Auto) 0.0 x10^3/uL (0.0-0.2) Sodium Level 145 mmol/L (136-145) Potassium Level 3.4 mmol/L (3.5-5.1) Chloride Level 110 mmol/L (98-107) Carbon Dioxide Level 25 mmol/L (21-32) Anion Gap 10 (6-14) Blood Urea Nitrogen 31 mg/dL (8-26) Creatinine 2.4 mg/dL (0.7-1.3) Estimated GFR (Cockcroft-Gault) 26.7 BUN/Creatinine Ratio 13 (6-20) Glucose Level 99 mg/dL (70-99) Calcium Level 8.2 mg/dL (8.5-10.1) Total Bilirubin 0.2 mg/dL (0.2-1.0) Aspartate Amino Transf (AST/SGOT) 11 U/L (15-37) Alanine Aminotransferase (ALT/SGPT) 13 U/L (16-63) Alkaline Phosphatase 60 U/L (46-116) Total Protein 6.0 g/dL (6.4-8.2) Albumin 2.2 g/dL (3.4-5.0) Albumin/Globulin Ratio 0.6 (1.0-1.7) Triglycerides Level 125 mg/dL (0-150) Cholesterol Level 88 mg/dL (0-200) LDL Cholesterol, Calculated 38 mg/dL (0-100) VLDL Cholesterol, Calculated 25 mg/dL (0-40) Non-HDL Cholesterol Calculated 63 mg/dL (0-129) HDL Cholesterol 25 mg/dL (40-60) Cholesterol/HDL Ratio 3.5 Test 05/29/18 12:03 05/29/18 14:59 05/29/18 16:14 Glucose (Fingerstick) 92 mg/dL (70-99) 66 mg/dL (70-99) 131 mg/dL (70-99) Assessment and Plan Assessmemt and Plan Problems Medical Problems: (1) Abdominal pain Status: Acute Comment Review of Relevant I have reviewed the following items harman (where applicable) has been applied. Labs Laboratory Tests Test 05/28/18 10:05 05/28/18 11:40 05/28/18 14:30 05/28/18 16:39 White Blood Count 13.8 x10^3/uL (4.0-11.0) Red Blood Count 3.69 x10^6/uL (4.30-5.70) Hemoglobin 11.6 g/dL (13.0-17.5) Hematocrit 34.6 % (39.0-53.0) Mean Corpuscular Volume 94 fL (79-100) Mean Corpuscular Hemoglobin 32 pg (25-35) Mean Corpuscular Hemoglobin Concent 34 g/dL (31-37) Red Cell Distribution Width 13.7 % (11.5-14.5) Platelet Count 249 x10^3/uL (140-400) Neutrophils (%) (Auto) 87 % (31-73) Lymphocytes (%) (Auto) 5 % (24-48) Monocytes (%) (Auto) 8 % (0-9) Eosinophils (%) (Auto) 0 % (0-3) Basophils (%) (Auto) 0 % (0-3) Neutrophils # (Auto) 12.0 x10^3uL (1.8-7.7) Lymphocytes # (Auto) 0.7 x10^3/uL (1.0-4.8) Monocytes # (Auto) 1.1 x10^3/uL (0.0-1.1) Eosinophils # (Auto) 0.1 x10^3/uL (0.0-0.7) Basophils # (Auto) 0.0 x10^3/uL (0.0-0.2) Segmented Neutrophils % 86 % (35-66) Band Neutrophils % 11 % (0-9) Lymphocytes % 1 % (24-48) Monocytes % 2 % (0-10) Toxic Vacuolation Slight Dohle Bodies Present Platelet Estimate Adequate (ADEQUATE) Sodium Level 143 mmol/L (136-145) Potassium Level 3.7 mmol/L (3.5-5.1) Chloride Level 104 mmol/L (98-107) Carbon Dioxide Level 27 mmol/L (21-32) Anion Gap 12 (6-14) Blood Urea Nitrogen 34 mg/dL (8-26) Creatinine 2.9 mg/dL (0.7-1.3) Estimated GFR (Cockcroft-Gault) 21.5 BUN/Creatinine Ratio 12 (6-20) Glucose Level 161 mg/dL (70-99) Calcium Level 9.3 mg/dL (8.5-10.1) Magnesium Level 2.1 mg/dL (1.8-2.4) Total Bilirubin 0.7 mg/dL (0.2-1.0) Aspartate Amino Transf (AST/SGOT) 22 U/L (15-37) Alanine Aminotransferase (ALT/SGPT) 17 U/L (16-63) Alkaline Phosphatase 77 U/L (46-116) Troponin I Quantitative 0.303 ng/mL (0.000-0.055) 0.182 ng/mL (0.000-0.055) AZ-Aex-Q-Type Natriuretic Peptide 1043 pg/mL (0-124) Total Protein 6.8 g/dL (6.4-8.2) Albumin 3.2 g/dL (3.4-5.0) Albumin/Globulin Ratio 0.9 (1.0-1.7) Lipase 65 U/L (73-393) Urine Collection Type Unknown Urine Color Yellow Urine Clarity Clear Urine pH 5.5 Urine Specific [place] 1.010 Urine Protein Negative mg/dL (NEG-TRACE) Urine Glucose (UA) Negative mg/dL (NEG) Urine Ketones (Stick) Negative mg/dL (NEG) Urine Blood Negative (NEG) Urine Nitrite Negative (NEG) Urine Bilirubin Negative (NEG) Urine Urobilinogen Dipstick 0.2 mg/dL (0.2 mg/dL) Urine Leukocyte Esterase Negative (NEG) Urine RBC 0 /HPF (0-2) Urine WBC 0 /HPF (0-4) Urine Squamous Epithelial Cells Occ /LPF Urine Bacteria 0 /HPF (0-FEW) Glucose (Fingerstick) 157 mg/dL (70-99) Test 05/28/18 16:55 05/28/18 20:04 05/29/18 03:25 05/29/18 07:00 Troponin I Quantitative 0.207 ng/mL (0.000-0.055) Glucose (Fingerstick) 199 mg/dL (70-99) 52 mg/dL (70-99) White Blood Count 9.6 x10^3/uL (4.0-11.0) Red Blood Count 3.10 x10^6/uL (4.30-5.70) Hemoglobin 10.0 g/dL (13.0-17.5) Hematocrit 29.0 % (39.0-53.0) Mean Corpuscular Volume 94 fL (79-100) Mean Corpuscular Hemoglobin 32 pg (25-35) Mean Corpuscular Hemoglobin Concent 34 g/dL (31-37) Red Cell Distribution Width 13.9 % (11.5-14.5) Platelet Count 201 x10^3/uL (140-400) Neutrophils (%) (Auto) 84 % (31-73) Lymphocytes (%) (Auto) 6 % (24-48) Monocytes (%) (Auto) 8 % (0-9) Eosinophils (%) (Auto) 1 % (0-3) Basophils (%) (Auto) 0 % (0-3) Neutrophils # (Auto) 8.1 x10^3uL (1.8-7.7) Lymphocytes # (Auto) 0.6 x10^3/uL (1.0-4.8) Monocytes # (Auto) 0.8 x10^3/uL (0.0-1.1) Eosinophils # (Auto) 0.1 x10^3/uL (0.0-0.7) Basophils # (Auto) 0.0 x10^3/uL (0.0-0.2) Sodium Level 145 mmol/L (136-145) Potassium Level 3.4 mmol/L (3.5-5.1) Chloride Level 110 mmol/L (98-107) Carbon Dioxide Level 25 mmol/L (21-32) Anion Gap 10 (6-14) Blood Urea Nitrogen 31 mg/dL (8-26) Creatinine 2.4 mg/dL (0.7-1.3) Estimated GFR (Cockcroft-Gault) 26.7 BUN/Creatinine Ratio 13 (6-20) Glucose Level 99 mg/dL (70-99) Calcium Level 8.2 mg/dL (8.5-10.1) Total Bilirubin 0.2 mg/dL (0.2-1.0) Aspartate Amino Transf (AST/SGOT) 11 U/L (15-37) Alanine Aminotransferase (ALT/SGPT) 13 U/L (16-63) Alkaline Phosphatase 60 U/L (46-116) Total Protein 6.0 g/dL (6.4-8.2) Albumin 2.2 g/dL (3.4-5.0) Albumin/Globulin Ratio 0.6 (1.0-1.7) Triglycerides Level 125 mg/dL (0-150) Cholesterol Level 88 mg/dL (0-200) LDL Cholesterol, Calculated 38 mg/dL (0-100) VLDL Cholesterol, Calculated 25 mg/dL (0-40) Non-HDL Cholesterol Calculated 63 mg/dL (0-129) HDL Cholesterol 25 mg/dL (40-60) Cholesterol/HDL Ratio 3.5 Test 05/29/18 11:14 05/29/18 12:03 05/29/18 14:59 05/29/18 16:14 Glucose (Fingerstick) 49 mg/dL (70-99) 92 mg/dL (70-99) 66 mg/dL (70-99) 131 mg/dL (70-99) Laboratory Tests Test 05/28/18 20:04 05/29/18 03:25 05/29/18 07:00 05/29/18 11:14 Glucose (Fingerstick) 199 mg/dL (70-99) 52 mg/dL (70-99) 49 mg/dL (70-99) White Blood Count 9.6 x10^3/uL (4.0-11.0) Red Blood Count 3.10 x10^6/uL (4.30-5.70) Hemoglobin 10.0 g/dL (13.0-17.5) Hematocrit 29.0 % (39.0-53.0) Mean Corpuscular Volume 94 fL (79-100) Mean Corpuscular Hemoglobin 32 pg (25-35) Mean Corpuscular Hemoglobin Concent 34 g/dL (31-37) Red Cell Distribution Width 13.9 % (11.5-14.5) Platelet Count 201 x10^3/uL (140-400) Neutrophils (%) (Auto) 84 % (31-73) Lymphocytes (%) (Auto) 6 % (24-48) Monocytes (%) (Auto) 8 % (0-9) Eosinophils (%) (Auto) 1 % (0-3) Basophils (%) (Auto) 0 % (0-3) Neutrophils # (Auto) 8.1 x10^3uL (1.8-7.7) Lymphocytes # (Auto) 0.6 x10^3/uL (1.0-4.8) Monocytes # (Auto) 0.8 x10^3/uL (0.0-1.1) Eosinophils # (Auto) 0.1 x10^3/uL (0.0-0.7) Basophils # (Auto) 0.0 x10^3/uL (0.0-0.2) Sodium Level 145 mmol/L (136-145) Potassium Level 3.4 mmol/L (3.5-5.1) Chloride Level 110 mmol/L (98-107) Carbon Dioxide Level 25 mmol/L (21-32) Anion Gap 10 (6-14) Blood Urea Nitrogen 31 mg/dL (8-26) Creatinine 2.4 mg/dL (0.7-1.3) Estimated GFR (Cockcroft-Gault) 26.7 BUN/Creatinine Ratio 13 (6-20) Glucose Level 99 mg/dL (70-99) Calcium Level 8.2 mg/dL (8.5-10.1) Total Bilirubin 0.2 mg/dL (0.2-1.0) Aspartate Amino Transf (AST/SGOT) 11 U/L (15-37) Alanine Aminotransferase (ALT/SGPT) 13 U/L (16-63) Alkaline Phosphatase 60 U/L (46-116) Total Protein 6.0 g/dL (6.4-8.2) Albumin 2.2 g/dL (3.4-5.0) Albumin/Globulin Ratio 0.6 (1.0-1.7) Triglycerides Level 125 mg/dL (0-150) Cholesterol Level 88 mg/dL (0-200) LDL Cholesterol, Calculated 38 mg/dL (0-100) VLDL Cholesterol, Calculated 25 mg/dL (0-40) Non-HDL Cholesterol Calculated 63 mg/dL (0-129) HDL Cholesterol 25 mg/dL (40-60) Cholesterol/HDL Ratio 3.5 Test 05/29/18 12:03 05/29/18 14:59 05/29/18 16:14 Glucose (Fingerstick) 92 mg/dL (70-99) 66 mg/dL (70-99) 131 mg/dL (70-99) Medications Current Medications Ondansetron HCl (Zofran) 4 mg 1X ONCE IV Last administered on 05/28/18at 10:20 ; Start 05/28/18 at 10:15; Stop 05/28/18 at 10:16; Status DC Pantoprazole Sodium (PROTONIX VIAL for IV PUSH) 40 mg 1X ONCE IVP Last administered on 05/28/18at 10:20; Start 05/28/18 at 10:15; Stop 05/28/18 at 10:16 ; Status DC Sodium Chloride 1,000 ml @ 1,000 mls/hr 1X ONCE IV Last administered on at 10:20; Start 05/28/18 at 10:15; Stop 05/28/18 at 11:14; Status DC Iohexol (Omnipaque 240 Mg/ml) 30 ml 1X ONCE PO ; Start 05/28/18 at 11:15; Stop 05/28/18 at 11:16; Status DC Iohexol (Omnipaque 300 Mg/ml) 75 ml 1X ONCE IV ; Start 05/28/18 at 11:15; Stop 05/28/18 at 11:16; Status DC Info (CONTRAST GIVEN -- Rx MONITORING) 1 each PRN DAILY PRN MC SEE COMMENTS; Start 05/28/18 at 11:15; Stop 05/30/18 at 11:14 Aspirin (Katey Aspirin) 325 mg 1X ONCE PO Last administered on 05/28/18at 12:17 ; Start 05/28/18 at 11:45; Stop 05/28/18 at 11:46; Status DC Atorvastatin Calcium (Lipitor) 40 mg QHS PO Last administered on 05/28/18at 19: 58; Start 05/28/18 at 21:00 Duloxetine HCl (Cymbalta) 30 mg DAILY PO Last administered on 05/29/18at 08:42; Start 05/29/18 at 09:00 EZETIMIBE (Zetia) 10 mg DAILY PO Last administered on 05/29/18at 08:42; Start at 09:00 Insulin Glargine (Lantus) 75 units QHS SQ Last administered on 05/28/18at 20:11 ; Start 05/28/18 at 21:00 Fish Oil (Fish Oil) 1,000 mg BID PO Last administered on 05/29/18 08:43; Start 05/28/18 at 21:00 Dipyridamole/ Aspirin (Aggrenox) 1 cap BID PO Last administered on 05/28/18at 19 :59; Start 05/28/18 at 21:00 Insulin Human Lispro (HumaLOG) 25 units TIDWMEALS SQ ; Start 05/28/18 at 17:00 Memantine (Namenda) 10 mg BID PO Last administered on 05/29/18at 08:43; Start at 21:00 Non-Formulary Medication (Ubidecarenone (Co Q-10)) 200 mg DAILY PO ; Start 05/29 at 09:00; Status UNV Vitamin D (Vitamin D3) 1,000 unit DAILY PO Last administered on 05/29/18 08:43 ; Start 05/29/18 at 09:00 Donepezil HCl (Aricept) 10 mg DAILY PO Last administered on 05/29/18at 08:43; Start 05/29/18 at 09:00 Heparin Sodium (Porcine) (Heparin Sq) 5,000 unit Q8HRS SQ Last administered on 05/29/18at 15:15; Start 05/28/18 at 14:00 Levofloxacin/ Dextrose 50 ml @ 50 mls/hr 1X ONCE IV Last administered on at 13:30; Start 05/28/18 at 14:00; Stop 05/28/18 at 14:59; Status DC Ondansetron HCl (Zofran) 4 mg PRN Q8HRS PRN IV NAUSEA/VOMITING; Start 05/28/18 at 14:15; Stop 05/29/18 at 14:14; Status DC Morphine Sulfate (Morphine Sulfate) 2 mg PRN Q2HR PRN IV PAIN Last administered on 05/28/18 19:58; Start 05/28/18 at 14:15; Stop 05/29/18 at 14:14 ; Status DC Sodium Chloride 1,000 ml @ 100 mls/hr 1X ONCE IV Last administered on at 17:14; Start 05/28/18 at 14:15; Stop 05/29/18 at 00:14; Status DC Pantoprazole Sodium (PROTONIX VIAL for IV PUSH) 40 mg DAILYAC IVP Last administered on 05/29/18at 08:43; Start 05/29/18 at 07:30 Amlodipine Besylate (Norvasc) 5 mg DAILY PO Last administered on 05/29/18at 08: 43; Start 05/29/18 at 09:00 Carvedilol (Coreg) 25 mg BIDWMEALS PO Last administered on 05/29/18at 08:44; Start 05/28/18 at 17:00 Info (FLU VACCINE SCREEN per RX) 1 each PRN 1X PRN MC SEE COMMENTS; Start 05/28 at 19:00; Status UNV Influenza Virus Vaccine (Afluria Trivalent 4980-4200 Syringe) 0.5 ml ONCE ONCE VAX IM Last administered on 05/29/18at 11:35; Start 05/28/18 at 20:00; Stop at 20:01; Status DC Gabapentin (Neurontin) 100 mg TID PO Last administered on 05/29/18at 15:14; Start 05/28/18 at 21:00 Dextrose (Dextrose 50%-Water Syringe) 12.5 gm PRN Q15MIN PRN IV SEE COMMENTS Last administered on 05/29/18at 15:16; Start 05/29/18 at 11:30 Active Scripts Active Lantus Solostar (Insulin Glargine,Hum.rec.anlog) 100 Unit/1 Ml Insuln.pen 75 Units SQ QHS 30 Days Cymbalta (Duloxetine Hcl) 30 Mg Capsule.dr 30 Mg PO DAILY 30 Days Hydrocodone-Apap 5-325 (Hydrocodone Bit/Acetaminophen) 1 Each Tablet 1-2 Tab PO PRN Q6HRS PRN 5 Days Hydrocodone-Apap 5-325 (Hydrocodone Bit/Acetaminophen) 1 Each Tablet 1 Tab PO PRN Q4HRS PRN Atorvastatin Calcium 40 Mg Tablet 1 Tab PO DAILY Novolog Flexpen (Insulin Aspart) 100 Unit/1 Ml Insuln.pen 25 Unit SQ TIDAC Bentyl (Dicyclomine Hcl) 10 Mg Capsule 10 Mg PO QID PRN Reported Protonix (Pantoprazole Sodium) 20 Mg Tablet.dr 40 Mg PO DAILY Gabapentin 100 Mg Capsule 100 Mg PO TID Amlodipine Besylate 5 Mg Tablet 5 Mg PO DAILY Coreg (Carvedilol) 25 Mg Tablet 25 Mg PO BIDWMEALS Cyclobenzaprine Hcl 10 Mg Tablet 1 Tab PO PRN TID PRN Namenda (Memantine Hcl) 10 Mg Tablet 10 Mg PO BID D3 + K2 Dots 1,000 Units Tab (Vitamin D3/Vitamin K2) 1 Each Tab.rapdis 1 Each PO DAILY Fish Oil 1,000 Mg Capsule (Mark-3 Fatty Acids/Fish Oil) 1 Each Capsule 1 Each PO BID Donepezil Hcl 10 Mg Tablet 1 Tab PO DAILY Aggrenox 25 Mg-200 Mg Capsule (Aspirin/Dipyridamole) 1 Each Cpmp.12hr 1 Cap PO BID Cozaar (Losartan Potassium) 100 Mg Tablet 1 Tab PO DAILY Lasix (Furosemide) 20 Mg Tablet 1 Tab PO DAILY Zetia (Ezetimibe) 10 Mg Tablet 1 Tab PO DAILY Potassium Chloride 10 Meq Capsule.er 1 Cap PO DAILY Magnesium Gluconate 30 Mg Tablet 250 Mg PO Co Q-10 (Ubidecarenone) 200 Mg Capsule 200 Mg PO DAILY Vitals/I & O Vital Sign - Last 24 Hours 05/28/18 05/28/18 05/28/18 05/28/18 17:14 19:15 19:58 20:00 Temp 98.2 98.2 Pulse 68 57 Resp 20 B/P (MAP) 149/66 127/53 (77) Pulse Ox 91 O2 Delivery Room Air Room Air Room Air 05/28/18 05/29/18 05/29/18 05/29/18 22:30 03:50 07:00 08:00 Temp 98.5 98.3 98.3 98.5 98.3 98.3 Pulse 62 63 62 Resp 18 18 18 B/P (MAP) 131/66 (87) 130/52 (78) 119/48 (71) Pulse Ox 92 92 90 O2 Delivery Room Air Room Air Room Air Room Air 05/29/18 05/29/18 05/29/18 05/29/18 08:43 08:44 11:00 15:22 Temp 97.6 97.8 97.6 97.8 Pulse 62 62 53 49 Resp 18 16 B/P (MAP) 119/48 119/48 111/53 (72) 93/56 (68) Pulse Ox 92 90 O2 Delivery Room Air Room Air Intake and Output 05/28/18 05/28/18 05/29/18 15:00 23:00 07:00 Intake Total 200 ml 240 ml Output Total 900 ml Balance 200 ml -660 ml WONG HUIZAR MD May 29, 2018 17:08
[2018-05-29] MEDS ORDERED: AZITHROMYCIN 250 MG in IV NORMAL SALINE 250ML 250 ML IV SCH ×2 (18:00→20:00)
[2018-05-29 19:20] VITALS: BP 112/45
[2018-05-29] MEDS: ATORVASTATIN CALCIUM 40 MG TABLET. PO SCH (21:02)
[2018-05-29] MEDS: INSULIN GLARGINE 300 UNITS/3 ML INSULN.PEN. SQ SCH (21:06)
[2018-05-29 23:05] VITALS: BP 122/51
[2018-05-30 02:56] VITALS: BP 104/51
[2018-05-30] MEDS: HEPARIN PF for SUB-Q USE 5,000 UNIT/0.5 ML VIAL. SQ SCH ×3 (06:16→20:39)
[2018-05-30 07:00] VITALS: BP 158/59
[2018-05-30] MEDS: DEXTROSE 50% 25 GM / 50ML DISP.SYRIN. IV PRN (07:14)
[2018-05-30] MEDS: INSULIN LISPRO 300 UNITS/3 ML INSULN.PEN. SQ SCH ×3 (08:00→17:00)
[2018-05-30 09:07] LABS: BASO % 0 % (0-3); EOS # 0.1 x10^3/uL (0.0-0.7); EOS % 1 % (0-3); HEMATOCRIT 28.8 % (39.0-53.0); HEMOGLOBIN 9.8 g/dL (13.0-17.5); LYMPH # 0.4 x10^3/uL (1.0-4.8); LYMPH % 4 % (24-48); MEAN CORPUSCULAR HEMOGLOBIN 32 pg (25-35); MEAN CORPUSCULAR HGB CONC 34 g/dL (31-37); MEAN CORPUSCULAR VOLUME 94 fL (79-100); MONO # 0.8 x10^3/uL (0.0-1.1); MONO % 7 % (0-9); NEUT # 9.2 x10^3uL (1.8-7.7); NEUT % 88 % (31-73); PLATELET COUNT 225 x10^3/uL (140-400); RED BLOOD COUNT 3.07 x10^6/uL (4.30-5.70); WHITE BLOOD COUNT 10.4 x10^3/uL (4.0-11.0)
--- NOTE | 2018-05-30 09:22 | RAD ---
Exam: AP portable chest History: Possible pneumonia. Comparison: March 21, 2018. Findings: Cardiac silhouette appears borderline in size. Multi lead AICD by left subclavian approach is seen. Median sternotomy wires are present. No pneumothorax or pleural effusion is appreciated. No focal consolidation is seen. Pulmonary vascularity appears mildly accentuated. Impression: 1. Borderline pulmonary vascular congestion. Electronically signed by: Quinn Devi MD (05/30/2018 9:18 AM) [place] [id number]
[2018-05-30 09:26] LABS: CALCIUM 8.6 mg/dL (8.5-10.1); CREATININE 1.8 mg/dL (0.7-1.3); GFR 37.3; POTASSIUM 3.7 mmol/L (3.5-5.1)
[2018-05-30] MEDS: CHOLECALCIFEROL (VITAMIN D3) 1,000 UNIT TABLET PO SCH (09:50)
[2018-05-30] MEDS: EZETIMIBE 10 MG TABLET. PO SCH (09:50)
[2018-05-30] MEDS: PANTOPRAZOLE IV PUSH 40 MG VIAL. IVP SCH (09:50)
[2018-05-30] MEDS: ASPIRIN/DIPYRIDAMOLE 200/25MG CAP.ER.12H. PO SCH ×2 (09:50→20:37)
[2018-05-30] MEDS: GABAPENTIN 100 MG CAPSULE. PO SCH ×3 (09:50→20:37)
[2018-05-30] MEDS: LACTOBACILLUS RHAMNOSUS GG 1 CAPSULE. PO SCH ×2 (09:50→20:37)
[2018-05-30] MEDS: OMEGA-3 FATTY ACIDS/FISH OIL 1,000 MG CAPSULE. PO SCH ×2 (09:50→20:37)
[2018-05-30] MEDS: DULoxetine HCL 30 MG CAPSULE.DR PO SCH (09:50)
[2018-05-30] MEDS: MEMANTINE 10 MG TABLET. PO SCH ×2 (09:51→20:37)
[2018-05-30] MEDS: amLODIPine BESYLATE 5 MG TABLET PO SCH (09:51)
[2018-05-30] MEDS: DONEPEZIL HCL 10 MG TABLET. PO SCH (09:51)
[2018-05-30] MEDS: CARVEDILOL 12.5 MG TABLET. PO SCH ×2 (09:52→16:54)
--- NOTE | 2018-05-30 10:21 | PDOC ---
SUBJECTIVE ROS No new concerns , States feeling better OBJECTIVE Vital Signs Vital Signs Date Time Temp Pulse Resp B/P (MAP) Pulse Ox O2 Delivery O2 Flow Rate FiO2 05/30/18 09:52 58 158/59 05/30/18 07:00 97.5 18 97 Nasal Cannula 3.0 97.5 I & 0 Intake and Output 05/30/18 07:00 Intake Total 1700 ml Output Total 775 ml Balance 925 ml Intake Oral 450 ml IV Total 1250 ml Output Urine Total 775 ml # Voids 2 # Bowel Movements 2 PHYSICAL EXAM Physical Exam GEN: NAD HEEN: OM dry No JVD, supple CVS: S1S2, RESP: No Rales, No Rhonchi,[nO Acc. Muscle Use GI: BS + ve, NO Bruit, Non Tender, Non Distended : No CVA tenderness, No Suprapubic Tenderness, No Rios Neuro- dementia Skin No rash DIAGNOSIS/ASSESSMENT Assessment & Plan ENRIQUE - On CKD Likely Pre-renal ,Improving Hypernatremia- Mild PO fluid intake CKD stage 3 - since 2017 Baseline 1.2-1.6 Hypokalemia- Resolved HTN- On Losartan and lasix at Home Held Generalized abdominal pain, nausea vomiting and diarrhea. As per primary DM Dementia Discussed with RN COMMENT/RELEVANT DATA Meds Current Medications Medications (Trade) Dose Ordered Sig/Sylwia Start Time Stop Time Status Last Admin Dose Admin Amlodipine Besylate (Norvasc) 5 mg DAILY 05/29/18 09:00 05/30/18 09:51 5 MG Aspirin (Katey Aspirin) 325 mg 1X ONCE 05/28/18 11:45 05/28/18 11:46 DC 05/28/18 12:17 325 MG Atorvastatin Calcium (Lipitor) 40 mg QHS 05/28/18 21:00 05/29/18 21:02 40 MG Azithromycin 250 mg/Sodium Chloride 250 ml @ 250 mls/hr Q24H 05/29/18 20:00 05/29/18 19:36 250 MLS/HR Carvedilol (Coreg) 25 mg BIDWMEALS 05/28/18 17:00 05/30/18 09:52 25 MG Dextrose (Dextrose 50%-Water Syringe) 12.5 gm PRN Q15MIN PRN 05/29/18 11:30 05/30/18 07:14 25 GM Dipyridamole/ Aspirin (Aggrenox) 1 cap BID 05/28/18 21:00 05/30/18 09:50 1 CAP Donepezil HCl (Aricept) 10 mg DAILY 05/29/18 09:00 05/30/18 09:51 10 MG Duloxetine HCl (Cymbalta) 30 mg DAILY 05/29/18 09:00 05/30/18 09:50 30 MG EZETIMIBE (Zetia) 10 mg DAILY 05/29/18 09:00 05/30/18 09:50 10 MG Fish Oil (Fish Oil) 1,000 mg BID 05/28/18 21:00 05/30/18 09:50 1,000 MG Gabapentin (Neurontin) 100 mg TID 05/28/18 21:00 05/30/18 09:50 100 MG Heparin Sodium (Porcine) (Heparin Sq) 5,000 unit Q8HRS 05/28/18 14:00 05/30/18 06:16 5,000 UNIT Influenza Virus Vaccine (Afluria Trivalent [id number] Syringe) 0.5 ml ONCE ONCE 05/28/18 20:00 05/28/18 20:01 DC 05/29/18 11:35 0.5 ML Info (CONTRAST GIVEN -- Rx MONITORING) 1 each PRN DAILY PRN 05/28/18 11:15 05/30/18 11:14 Info (FLU VACCINE SCREEN per RX) 1 each PRN 1X PRN 05/28/18 19:00 UNV Insulin Glargine (Lantus) 30 units QHS 05/29/18 21:00 05/29/18 21:06 30 UNITS Insulin Human Lispro (HumaLOG) 15 units TIDWMEALS 05/29/18 17:00 Iohexol (Omnipaque 240 Mg/ml) 30 ml 1X ONCE 05/28/18 11:15 05/28/18 11:16 DC Iohexol (Omnipaque 300 Mg/ml) 75 ml 1X ONCE 05/28/18 11:15 05/28/18 11:16 DC Lactobacillus Rhamnosus (Culturelle) 1 cap BID 05/30/18 09:00 05/30/18 09:50 1 CAP Levofloxacin/ Dextrose 50 ml @ 50 mls/hr 1X ONCE 05/28/18 14:00 05/28/18 14:59 DC 05/28/18 13:30 50 MLS/HR Memantine (Namenda) 10 mg BID 05/28/18 21:00 05/30/18 09:51 10 MG Morphine Sulfate (Morphine Sulfate) 2 mg PRN Q2HR PRN 05/28/18 14:15 05/29/18 14:14 DC 05/28/18 19:58 2 MG Non-Formulary Medication (Ubidecarenone (Co Q-10)) 200 mg DAILY 05/29/18 09:00 UNV Ondansetron HCl (Zofran) 4 mg PRN Q8HRS PRN 05/28/18 14:15 05/29/18 14:14 DC Pantoprazole Sodium (PROTONIX VIAL for IV PUSH) 40 mg DAILYAC 05/29/18 07:30 05/30/18 09:50 40 MG Sodium Chloride 1,000 ml @ 100 mls/hr 1X ONCE 05/28/18 14:15 05/29/18 00:14 DC 05/28/18 17:14 100 MLS/HR Vitamin D (Vitamin D3) 1,000 unit DAILY 05/29/18 09:00 05/30/18 09:50 1,000 UNIT Lab Laboratory Tests Test 05/29/18 11:14 05/29/18 12:03 05/29/18 14:59 05/29/18 16:14 Glucose (Fingerstick) 49 mg/dL (70-99) 92 mg/dL (70-99) 66 mg/dL (70-99) 131 mg/dL (70-99) Test 05/29/18 20:55 05/30/18 07:01 05/30/18 07:42 05/30/18 09:00 Glucose (Fingerstick) 165 mg/dL (70-99) 36 mg/dL (70-99) 151 mg/dL (70-99) White Blood Count 10.4 x10^3/uL (4.0-11.0) Red Blood Count 3.07 x10^6/uL (4.30-5.70) Hemoglobin 9.8 g/dL (13.0-17.5) Hematocrit 28.8 % (39.0-53.0) Mean Corpuscular Volume 94 fL (79-100) Mean Corpuscular Hemoglobin 32 pg (25-35) Mean Corpuscular Hemoglobin Concent 34 g/dL (31-37) Red Cell Distribution Width 14.0 % (11.5-14.5) Platelet Count 225 x10^3/uL (140-400) Neutrophils (%) (Auto) 88 % (31-73) Lymphocytes (%) (Auto) 4 % (24-48) Monocytes (%) (Auto) 7 % (0-9) Eosinophils (%) (Auto) 1 % (0-3) Basophils (%) (Auto) 0 % (0-3) Neutrophils # (Auto) 9.2 x10^3uL (1.8-7.7) Lymphocytes # (Auto) 0.4 x10^3/uL (1.0-4.8) Monocytes # (Auto) 0.8 x10^3/uL (0.0-1.1) Eosinophils # (Auto) 0.1 x10^3/uL (0.0-0.7) Basophils # (Auto) 0.0 x10^3/uL (0.0-0.2) Sodium Level 146 mmol/L (136-145) Potassium Level 3.7 mmol/L (3.5-5.1) Chloride Level 111 mmol/L (98-107) Carbon Dioxide Level 26 mmol/L (21-32) Anion Gap 9 (6-14) Blood Urea Nitrogen 31 mg/dL (8-26) Creatinine 1.8 mg/dL (0.7-1.3) Estimated GFR (Cockcroft-Gault) 37.3 Glucose Level 88 mg/dL (70-99) Calcium Level 8.6 mg/dL (8.5-10.1) Results All relevant outside records, renal labs, imaging studies, telemetry/EKG's were reviewed. ELVI LICONA MD May 30, 2018 10:21
[2018-05-30 11:00] VITALS: BP 109/45
--- NOTE | 2018-05-30 13:22 | PDOC ---
[facility] 05/30/18 1322: CARDIO Progress Notes Date and Time Date of Service 05/30/2018 Time of Evaluation ~ 1030 Subjective Subjective: Other (sleeping in chair) Vitals Vitals Vital Signs Date Time Temp Pulse Resp B/P (MAP) Pulse Ox O2 Delivery O2 Flow Rate FiO2 05/30/18 11:00 97.6 58 109/45 (66) 99 3.0 97.6 05/30/18 08:00 Room Air 05/30/18 07:00 18 Weight Weight [ ] Input and Output Intake and Output Intake and Output 05/30/18 07:00 Intake Total 1700 ml Output Total 775 ml Balance 925 ml Intake Oral 450 ml IV Total 1250 ml Output Urine Total 775 ml # Voids 2 # Bowel Movements 2 Laboratory Labs Laboratory Tests Test 05/29/18 14:59 05/29/18 16:14 05/29/18 20:55 05/30/18 07:01 Glucose (Fingerstick) 66 mg/dL (70-99) 131 mg/dL (70-99) 165 mg/dL (70-99) 36 mg/dL (70-99) Test 05/30/18 07:42 05/30/18 09:00 05/30/18 11:55 Glucose (Fingerstick) 151 mg/dL (70-99) 75 mg/dL (70-99) White Blood Count 10.4 x10^3/uL (4.0-11.0) Red Blood Count 3.07 x10^6/uL (4.30-5.70) Hemoglobin 9.8 g/dL (13.0-17.5) Hematocrit 28.8 % (39.0-53.0) Mean Corpuscular Volume 94 fL (79-100) Mean Corpuscular Hemoglobin 32 pg (25-35) Mean Corpuscular Hemoglobin Concent 34 g/dL (31-37) Red Cell Distribution Width 14.0 % (11.5-14.5) Platelet Count 225 x10^3/uL (140-400) Neutrophils (%) (Auto) 88 % (31-73) Lymphocytes (%) (Auto) 4 % (24-48) Monocytes (%) (Auto) 7 % (0-9) Eosinophils (%) (Auto) 1 % (0-3) Basophils (%) (Auto) 0 % (0-3) Neutrophils # (Auto) 9.2 x10^3uL (1.8-7.7) Lymphocytes # (Auto) 0.4 x10^3/uL (1.0-4.8) Monocytes # (Auto) 0.8 x10^3/uL (0.0-1.1) Eosinophils # (Auto) 0.1 x10^3/uL (0.0-0.7) Basophils # (Auto) 0.0 x10^3/uL (0.0-0.2) Sodium Level 146 mmol/L (136-145) Potassium Level 3.7 mmol/L (3.5-5.1) Chloride Level 111 mmol/L (98-107) Carbon Dioxide Level 26 mmol/L (21-32) Anion Gap 9 (6-14) Blood Urea Nitrogen 31 mg/dL (8-26) Creatinine 1.8 mg/dL (0.7-1.3) Estimated GFR (Cockcroft-Gault) 37.3 Glucose Level 88 mg/dL (70-99) Calcium Level 8.6 mg/dL (8.5-10.1) Physical Exam HEENT: Neck Supple W Full Motion Chest: Symmetric LUNGS: Other (posterior basilar crackles) Heart: RRR, other (V paced) Abdomen: Soft N/T Extremities: No Edema Neurology: other (arouses easily) Assessment Assessment 1. NSTEMI --elevated troponin in the setting of ENRIQUE; troponins 0.3 to 0.18 to 0.2; likely demand ischemia --TTE with LVEF of 40-45%; mild hypokinesis in the distal septal and apical perry and mild mitral regurg --low risk MPI in February 2. ischemic CMP with ICD --100% V paced; dependent --continue BB --ARB on hold due to renal function 3. CAD --chest pain with cough --continue aspirin and statin therapy 4. HTN --control with meds 5. HLD --LDLs controlled with statin therapy 6. pneumonia --treated with abx 7. JD RODRIGUEZ MD 05/30/18 8913: CARDIO Progress Notes Assessment Assessment Patient seen and examined. Agree with MANAGER IMAGING's assessment and plan. Slight troponin elevation probably demand ischemia CAD status clinically stable overall Recent device check showed normal function Continue current treatment for pneumonia CHRISTIANA THOMPSON APRN May 30, 2018 13:22 JD MONGE MD May 30, 2018 16:43
[2018-05-30 15:00] VITALS: BP 106/44
--- NOTE | 2018-05-30 15:13 | PDOC ---
PULMONARY PROGRESS NOTES Subjective PT NOT MORE SOA Vitals Vital Signs Date Time Temp Pulse Resp B/P (MAP) Pulse Ox O2 Delivery O2 Flow Rate FiO2 05/30/18 11:00 97.6 58 109/45 (66) 99 3.0 97.6 05/30/18 08:00 Room Air 05/30/18 07:00 18 ROS: No Nausea, No Chest Pain, No Abdominal Pain, No Increase Cough General: Alert Lungs: Clear Cardiovascular: S1, S2 Abdomen: Soft Neuro Exam: Alert Extremities: No Edema Skin: Warm Labs Laboratory Tests Test 05/28/18 16:39 05/28/18 16:55 05/28/18 20:04 05/29/18 03:25 Glucose (Fingerstick) 157 mg/dL (70-99) 199 mg/dL (70-99) Troponin I Quantitative 0.207 ng/mL (0.000-0.055) White Blood Count 9.6 x10^3/uL (4.0-11.0) Red Blood Count 3.10 x10^6/uL (4.30-5.70) Hemoglobin 10.0 g/dL (13.0-17.5) Hematocrit 29.0 % (39.0-53.0) Mean Corpuscular Volume 94 fL (79-100) Mean Corpuscular Hemoglobin 32 pg (25-35) Mean Corpuscular Hemoglobin Concent 34 g/dL (31-37) Red Cell Distribution Width 13.9 % (11.5-14.5) Platelet Count 201 x10^3/uL (140-400) Neutrophils (%) (Auto) 84 % (31-73) Lymphocytes (%) (Auto) 6 % (24-48) Monocytes (%) (Auto) 8 % (0-9) Eosinophils (%) (Auto) 1 % (0-3) Basophils (%) (Auto) 0 % (0-3) Neutrophils # (Auto) 8.1 x10^3uL (1.8-7.7) Lymphocytes # (Auto) 0.6 x10^3/uL (1.0-4.8) Monocytes # (Auto) 0.8 x10^3/uL (0.0-1.1) Eosinophils # (Auto) 0.1 x10^3/uL (0.0-0.7) Basophils # (Auto) 0.0 x10^3/uL (0.0-0.2) Sodium Level 145 mmol/L (136-145) Potassium Level 3.4 mmol/L (3.5-5.1) Chloride Level 110 mmol/L (98-107) Carbon Dioxide Level 25 mmol/L (21-32) Anion Gap 10 (6-14) Blood Urea Nitrogen 31 mg/dL (8-26) Creatinine 2.4 mg/dL (0.7-1.3) Estimated GFR (Cockcroft-Gault) 26.7 BUN/Creatinine Ratio 13 (6-20) Glucose Level 99 mg/dL (70-99) Calcium Level 8.2 mg/dL (8.5-10.1) Total Bilirubin 0.2 mg/dL (0.2-1.0) Aspartate Amino Transf (AST/SGOT) 11 U/L (15-37) Alanine Aminotransferase (ALT/SGPT) 13 U/L (16-63) Alkaline Phosphatase 60 U/L (46-116) Total Protein 6.0 g/dL (6.4-8.2) Albumin 2.2 g/dL (3.4-5.0) Albumin/Globulin Ratio 0.6 (1.0-1.7) Triglycerides Level 125 mg/dL (0-150) Cholesterol Level 88 mg/dL (0-200) LDL Cholesterol, Calculated 38 mg/dL (0-100) VLDL Cholesterol, Calculated 25 mg/dL (0-40) Non-HDL Cholesterol Calculated 63 mg/dL (0-129) HDL Cholesterol 25 mg/dL (40-60) Cholesterol/HDL Ratio 3.5 Test 05/29/18 07:00 05/29/18 11:14 05/29/18 12:03 05/29/18 14:59 Glucose (Fingerstick) 52 mg/dL (70-99) 49 mg/dL (70-99) 92 mg/dL (70-99) 66 mg/dL (70-99) Test 05/29/18 16:14 05/29/18 20:55 05/30/18 07:01 05/30/18 07:42 Glucose (Fingerstick) 131 mg/dL (70-99) 165 mg/dL (70-99) 36 mg/dL (70-99) 151 mg/dL (70-99) Test 05/30/18 09:00 05/30/18 11:55 White Blood Count 10.4 x10^3/uL (4.0-11.0) Red Blood Count 3.07 x10^6/uL (4.30-5.70) Hemoglobin 9.8 g/dL (13.0-17.5) Hematocrit 28.8 % (39.0-53.0) Mean Corpuscular Volume 94 fL (79-100) Mean Corpuscular Hemoglobin 32 pg (25-35) Mean Corpuscular Hemoglobin Concent 34 g/dL (31-37) Red Cell Distribution Width 14.0 % (11.5-14.5) Platelet Count 225 x10^3/uL (140-400) Neutrophils (%) (Auto) 88 % (31-73) Lymphocytes (%) (Auto) 4 % (24-48) Monocytes (%) (Auto) 7 % (0-9) Eosinophils (%) (Auto) 1 % (0-3) Basophils (%) (Auto) 0 % (0-3) Neutrophils # (Auto) 9.2 x10^3uL (1.8-7.7) Lymphocytes # (Auto) 0.4 x10^3/uL (1.0-4.8) Monocytes # (Auto) 0.8 x10^3/uL (0.0-1.1) Eosinophils # (Auto) 0.1 x10^3/uL (0.0-0.7) Basophils # (Auto) 0.0 x10^3/uL (0.0-0.2) Sodium Level 146 mmol/L (136-145) Potassium Level 3.7 mmol/L (3.5-5.1) Chloride Level 111 mmol/L (98-107) Carbon Dioxide Level 26 mmol/L (21-32) Anion Gap 9 (6-14) Blood Urea Nitrogen 31 mg/dL (8-26) Creatinine 1.8 mg/dL (0.7-1.3) Estimated GFR (Cockcroft-Gault) 37.3 Glucose Level 88 mg/dL (70-99) Calcium Level 8.6 mg/dL (8.5-10.1) Glucose (Fingerstick) 75 mg/dL (70-99) Laboratory Tests Test 05/29/18 16:14 05/29/18 20:55 05/30/18 07:01 05/30/18 07:42 Glucose (Fingerstick) 131 mg/dL (70-99) 165 mg/dL (70-99) 36 mg/dL (70-99) 151 mg/dL (70-99) Test 05/30/18 09:00 05/30/18 11:55 White Blood Count 10.4 x10^3/uL (4.0-11.0) Red Blood Count 3.07 x10^6/uL (4.30-5.70) Hemoglobin 9.8 g/dL (13.0-17.5) Hematocrit 28.8 % (39.0-53.0) Mean Corpuscular Volume 94 fL (79-100) Mean Corpuscular Hemoglobin 32 pg (25-35) Mean Corpuscular Hemoglobin Concent 34 g/dL (31-37) Red Cell Distribution Width 14.0 % (11.5-14.5) Platelet Count 225 x10^3/uL (140-400) Neutrophils (%) (Auto) 88 % (31-73) Lymphocytes (%) (Auto) 4 % (24-48) Monocytes (%) (Auto) 7 % (0-9) Eosinophils (%) (Auto) 1 % (0-3) Basophils (%) (Auto) 0 % (0-3) Neutrophils # (Auto) 9.2 x10^3uL (1.8-7.7) Lymphocytes # (Auto) 0.4 x10^3/uL (1.0-4.8) Monocytes # (Auto) 0.8 x10^3/uL (0.0-1.1) Eosinophils # (Auto) 0.1 x10^3/uL (0.0-0.7) Basophils # (Auto) 0.0 x10^3/uL (0.0-0.2) Sodium Level 146 mmol/L (136-145) Potassium Level 3.7 mmol/L (3.5-5.1) Chloride Level 111 mmol/L (98-107) Carbon Dioxide Level 26 mmol/L (21-32) Anion Gap 9 (6-14) Blood Urea Nitrogen 31 mg/dL (8-26) Creatinine 1.8 mg/dL (0.7-1.3) Estimated GFR (Cockcroft-Gault) 37.3 Glucose Level 88 mg/dL (70-99) Calcium Level 8.6 mg/dL (8.5-10.1) Glucose (Fingerstick) 75 mg/dL (70-99) Medications Active Scripts Medications Dose Route/Sig Max Daily Dose Days Date Category Cyclobenzaprine Hcl 10 Mg Tablet 1 Tab PO PRN TID PRN 03/03/18 Reported Lantus Solostar (Insulin Glargine,Hum.rec.anlog) 100 Unit/1 Ml Insuln.pen 75 Units SQ QHS 30 01/12/18 Rx Cymbalta (Duloxetine Hcl) 30 Mg Capsule.dr 30 Mg PO DAILY 30 01/12/18 Rx Namenda (Memantine Hcl) 10 Mg Tablet 10 Mg PO BID 12/25/17 Reported Hydrocodone-Apap 5-325 (Hydrocodone Bit/Acetaminophen) 1 Each Tablet 1-2 Tab PO PRN Q6HRS PRN 5 10/31/17 Rx Hydrocodone-Apap 5-325 (Hydrocodone Bit/Acetaminophen) 1 Each Tablet 1 Tab PO PRN Q4HRS PRN 09/17/16 Rx Atorvastatin Calcium 40 Mg Tablet 1 Tab PO DAILY 09/14/16 Rx Novolog Flexpen (Insulin Aspart) 100 Unit/1 Ml Insuln.pen 25 Unit SQ TIDAC 09/14/16 Rx D3 + K2 Dots 1,000 Units Tab (Vitamin D3/Vitamin K2) 1 Each Tab.rapdis 1 Each PO DAILY 09/14/16 Reported Fish Oil 1,000 Mg Capsule (Waldo-3 Fatty Acids/Fish Oil) 1 Each Capsule 1 Each PO BID 09/14/16 Reported Donepezil Hcl 10 Mg Tablet 1 Tab PO DAILY 09/14/16 Reported Bentyl (Dicyclomine Hcl) 10 Mg Capsule 10 Mg PO QID PRN 09/07/16 Rx Aggrenox 25 Mg-200 Mg Capsule (Aspirin/Dipyridamole) 1 Each Cpmp.12hr 1 Cap PO BID 04/12/14 Reported Cozaar (Losartan Potassium) 100 Mg Tablet 1 Tab PO DAILY 04/12/14 Reported Lasix (Furosemide) 20 Mg Tablet 1 Tab PO DAILY 04/12/14 Reported Zetia (Ezetimibe) 10 Mg Tablet 1 Tab PO DAILY 04/12/14 Reported Potassium Chloride 10 Meq Capsule.er 1 Cap PO DAILY 04/12/14 Reported Magnesium Gluconate 30 Mg Tablet 250 Mg PO 04/12/14 Reported Co Q-10 (Ubidecarenone) 200 Mg Capsule 200 Mg PO DAILY 04/12/14 Reported Impression . IMPRESSION: 1. Bibasilar ill-defined infiltrate, suspect atelectasis, possibly mild congestive heart failure. 2. Nausea and vomiting, etiology unclear. 3. Jrivj-tu-jevdzij renal failure. 4. Dementia. 5. Type 2 diabetes. 6. Chronic obstructive pulmonary disease. 7. Tobacco dependence, in remission. 8. Peripheral vascular disease with previous below-knee amputation. 9. Carotid artery stenosis. 10. Status post pacemaker. 11. Elevated troponin. Plan . ZITHROMAX ORAL FOLLOW CARD INPUT REPEAT CXR MARITZA QUIROGA MD May 30, 2018 15:13
--- NOTE | 2018-05-30 15:25 | PDOC ---
PROGRESS NOTES Chief Complaint Chief Complaint Bacterial Pneumonia gram pos Hyopglycemia Diabetes Mellitus type 2 Hypertension Mod Cognitive impairment acute kidney injury History of Present Illness History of Present Illness pt seen and examined Dw RN improved n/v and diarrhea Vitals Vitals Vital Signs Date Time Temp Pulse Resp B/P (MAP) Pulse Ox O2 Delivery O2 Flow Rate FiO2 05/30/18 15:00 97.6 68 106/44 (64) 99 3.0 97.6 05/30/18 08:00 Room Air 05/30/18 07:00 18 Physical Exam General: Cooperative, No acute distress Heart: Normal S1, Normal S2 Lungs: Clear Abdomen: Normal bowel sounds, Soft Extremities: No cyanosis, No edema Skin: No rashes, No significant lesion Labs LABS Laboratory Tests Test 05/29/18 16:14 05/29/18 20:55 05/30/18 07:01 05/30/18 07:42 Glucose (Fingerstick) 131 mg/dL (70-99) 165 mg/dL (70-99) 36 mg/dL (70-99) 151 mg/dL (70-99) Test 05/30/18 09:00 05/30/18 11:55 White Blood Count 10.4 x10^3/uL (4.0-11.0) Red Blood Count 3.07 x10^6/uL (4.30-5.70) Hemoglobin 9.8 g/dL (13.0-17.5) Hematocrit 28.8 % (39.0-53.0) Mean Corpuscular Volume 94 fL (79-100) Mean Corpuscular Hemoglobin 32 pg (25-35) Mean Corpuscular Hemoglobin Concent 34 g/dL (31-37) Red Cell Distribution Width 14.0 % (11.5-14.5) Platelet Count 225 x10^3/uL (140-400) Neutrophils (%) (Auto) 88 % (31-73) Lymphocytes (%) (Auto) 4 % (24-48) Monocytes (%) (Auto) 7 % (0-9) Eosinophils (%) (Auto) 1 % (0-3) Basophils (%) (Auto) 0 % (0-3) Neutrophils # (Auto) 9.2 x10^3uL (1.8-7.7) Lymphocytes # (Auto) 0.4 x10^3/uL (1.0-4.8) Monocytes # (Auto) 0.8 x10^3/uL (0.0-1.1) Eosinophils # (Auto) 0.1 x10^3/uL (0.0-0.7) Basophils # (Auto) 0.0 x10^3/uL (0.0-0.2) Sodium Level 146 mmol/L (136-145) Potassium Level 3.7 mmol/L (3.5-5.1) Chloride Level 111 mmol/L (98-107) Carbon Dioxide Level 26 mmol/L (21-32) Anion Gap 9 (6-14) Blood Urea Nitrogen 31 mg/dL (8-26) Creatinine 1.8 mg/dL (0.7-1.3) Estimated GFR (Cockcroft-Gault) 37.3 Glucose Level 88 mg/dL (70-99) Calcium Level 8.6 mg/dL (8.5-10.1) Glucose (Fingerstick) 75 mg/dL (70-99) Review of Systems Review of Systems no fever mild hunger pains Assessment and Plan Assessmemt and Plan Assessment: Bacterial Pneumonia gram pos Hyopglycemia Diabetes Mellitus type 2 Hypertension Mod Cognitive impairment acute kidney injury Plan: cardiac monitoring IVF antibiotics Labs adjusting insulin await cardio, pulm, nephro input pt/ot possible discharge if okay with subspecialists Comment Review of Relevant I have reviewed the following items harman (where applicable) has been applied. Labs Laboratory Tests Test 05/28/18 16:39 05/28/18 16:55 05/28/18 20:04 05/29/18 03:25 Glucose (Fingerstick) 157 mg/dL (70-99) 199 mg/dL (70-99) Troponin I Quantitative 0.207 ng/mL (0.000-0.055) White Blood Count 9.6 x10^3/uL (4.0-11.0) Red Blood Count 3.10 x10^6/uL (4.30-5.70) Hemoglobin 10.0 g/dL (13.0-17.5) Hematocrit 29.0 % (39.0-53.0) Mean Corpuscular Volume 94 fL (79-100) Mean Corpuscular Hemoglobin 32 pg (25-35) Mean Corpuscular Hemoglobin Concent 34 g/dL (31-37) Red Cell Distribution Width 13.9 % (11.5-14.5) Platelet Count 201 x10^3/uL (140-400) Neutrophils (%) (Auto) 84 % (31-73) Lymphocytes (%) (Auto) 6 % (24-48) Monocytes (%) (Auto) 8 % (0-9) Eosinophils (%) (Auto) 1 % (0-3) Basophils (%) (Auto) 0 % (0-3) Neutrophils # (Auto) 8.1 x10^3uL (1.8-7.7) Lymphocytes # (Auto) 0.6 x10^3/uL (1.0-4.8) Monocytes # (Auto) 0.8 x10^3/uL (0.0-1.1) Eosinophils # (Auto) 0.1 x10^3/uL (0.0-0.7) Basophils # (Auto) 0.0 x10^3/uL (0.0-0.2) Sodium Level 145 mmol/L (136-145) Potassium Level 3.4 mmol/L (3.5-5.1) Chloride Level 110 mmol/L (98-107) Carbon Dioxide Level 25 mmol/L (21-32) Anion Gap 10 (6-14) Blood Urea Nitrogen 31 mg/dL (8-26) Creatinine 2.4 mg/dL (0.7-1.3) Estimated GFR (Cockcroft-Gault) 26.7 BUN/Creatinine Ratio 13 (6-20) Glucose Level 99 mg/dL (70-99) Calcium Level 8.2 mg/dL (8.5-10.1) Total Bilirubin 0.2 mg/dL (0.2-1.0) Aspartate Amino Transf (AST/SGOT) 11 U/L (15-37) Alanine Aminotransferase (ALT/SGPT) 13 U/L (16-63) Alkaline Phosphatase 60 U/L (46-116) Total Protein 6.0 g/dL (6.4-8.2) Albumin 2.2 g/dL (3.4-5.0) Albumin/Globulin Ratio 0.6 (1.0-1.7) Triglycerides Level 125 mg/dL (0-150) Cholesterol Level 88 mg/dL (0-200) LDL Cholesterol, Calculated 38 mg/dL (0-100) VLDL Cholesterol, Calculated 25 mg/dL (0-40) Non-HDL Cholesterol Calculated 63 mg/dL (0-129) HDL Cholesterol 25 mg/dL (40-60) Cholesterol/HDL Ratio 3.5 Test 05/29/18 07:00 05/29/18 11:14 05/29/18 12:03 05/29/18 14:59 Glucose (Fingerstick) 52 mg/dL (70-99) 49 mg/dL (70-99) 92 mg/dL (70-99) 66 mg/dL (70-99) Test 05/29/18 16:14 05/29/18 20:55 05/30/18 07:01 05/30/18 07:42 Glucose (Fingerstick) 131 mg/dL (70-99) 165 mg/dL (70-99) 36 mg/dL (70-99) 151 mg/dL (70-99) Test 05/30/18 09:00 05/30/18 11:55 White Blood Count 10.4 x10^3/uL (4.0-11.0) Red Blood Count 3.07 x10^6/uL (4.30-5.70) Hemoglobin 9.8 g/dL (13.0-17.5) Hematocrit 28.8 % (39.0-53.0) Mean Corpuscular Volume 94 fL (79-100) Mean Corpuscular Hemoglobin 32 pg (25-35) Mean Corpuscular Hemoglobin Concent 34 g/dL (31-37) Red Cell Distribution Width 14.0 % (11.5-14.5) Platelet Count 225 x10^3/uL (140-400) Neutrophils (%) (Auto) 88 % (31-73) Lymphocytes (%) (Auto) 4 % (24-48) Monocytes (%) (Auto) 7 % (0-9) Eosinophils (%) (Auto) 1 % (0-3) Basophils (%) (Auto) 0 % (0-3) Neutrophils # (Auto) 9.2 x10^3uL (1.8-7.7) Lymphocytes # (Auto) 0.4 x10^3/uL (1.0-4.8) Monocytes # (Auto) 0.8 x10^3/uL (0.0-1.1) Eosinophils # (Auto) 0.1 x10^3/uL (0.0-0.7) Basophils # (Auto) 0.0 x10^3/uL (0.0-0.2) Sodium Level 146 mmol/L (136-145) Potassium Level 3.7 mmol/L (3.5-5.1) Chloride Level 111 mmol/L (98-107) Carbon Dioxide Level 26 mmol/L (21-32) Anion Gap 9 (6-14) Blood Urea Nitrogen 31 mg/dL (8-26) Creatinine 1.8 mg/dL (0.7-1.3) Estimated GFR (Cockcroft-Gault) 37.3 Glucose Level 88 mg/dL (70-99) Calcium Level 8.6 mg/dL (8.5-10.1) Glucose (Fingerstick) 75 mg/dL (70-99) Laboratory Tests Test 05/29/18 16:14 05/29/18 20:55 05/30/18 07:01 05/30/18 07:42 Glucose (Fingerstick) 131 mg/dL (70-99) 165 mg/dL (70-99) 36 mg/dL (70-99) 151 mg/dL (70-99) Test 05/30/18 09:00 05/30/18 11:55 White Blood Count 10.4 x10^3/uL (4.0-11.0) Red Blood Count 3.07 x10^6/uL (4.30-5.70) Hemoglobin 9.8 g/dL (13.0-17.5) Hematocrit 28.8 % (39.0-53.0) Mean Corpuscular Volume 94 fL (79-100) Mean Corpuscular Hemoglobin 32 pg (25-35) Mean Corpuscular Hemoglobin Concent 34 g/dL (31-37) Red Cell Distribution Width 14.0 % (11.5-14.5) Platelet Count 225 x10^3/uL (140-400) Neutrophils (%) (Auto) 88 % (31-73) Lymphocytes (%) (Auto) 4 % (24-48) Monocytes (%) (Auto) 7 % (0-9) Eosinophils (%) (Auto) 1 % (0-3) Basophils (%) (Auto) 0 % (0-3) Neutrophils # (Auto) 9.2 x10^3uL (1.8-7.7) Lymphocytes # (Auto) 0.4 x10^3/uL (1.0-4.8) Monocytes # (Auto) 0.8 x10^3/uL (0.0-1.1) Eosinophils # (Auto) 0.1 x10^3/uL (0.0-0.7) Basophils # (Auto) 0.0 x10^3/uL (0.0-0.2) Sodium Level 146 mmol/L (136-145) Potassium Level 3.7 mmol/L (3.5-5.1) Chloride Level 111 mmol/L (98-107) Carbon Dioxide Level 26 mmol/L (21-32) Anion Gap 9 (6-14) Blood Urea Nitrogen 31 mg/dL (8-26) Creatinine 1.8 mg/dL (0.7-1.3) Estimated GFR (Cockcroft-Gault) 37.3 Glucose Level 88 mg/dL (70-99) Calcium Level 8.6 mg/dL (8.5-10.1) Glucose (Fingerstick) 75 mg/dL (70-99) Medications Current Medications Ondansetron HCl (Zofran) 4 mg 1X ONCE IV Last administered on 05/28/18at 10:20 ; Start 05/28/18 at 10:15; Stop 05/28/18 at 10:16; Status DC Pantoprazole Sodium (PROTONIX VIAL for IV PUSH) 40 mg 1X ONCE IVP Last administered on 05/28/18at 10:20; Start 05/28/18 at 10:15; Stop 05/28/18 at 10:16 ; Status DC Sodium Chloride 1,000 ml @ 1,000 mls/hr 1X ONCE IV Last administered on at 10:20; Start 05/28/18 at 10:15; Stop 05/28/18 at 11:14; Status DC Iohexol (Omnipaque 240 Mg/ml) 30 ml 1X ONCE PO ; Start 05/28/18 at 11:15; Stop 05/28/18 at 11:16; Status DC Iohexol (Omnipaque 300 Mg/ml) 75 ml 1X ONCE IV ; Start 05/28/18 at 11:15; Stop 05/28/18 at 11:16; Status DC Info (CONTRAST GIVEN -- Rx MONITORING) 1 each PRN DAILY PRN MC SEE COMMENTS; Start 05/28/18 at 11:15; Stop 05/30/18 at 11:14; Status DC Aspirin (Katey Aspirin) 325 mg 1X ONCE PO Last administered on 05/28/18at 12:17 ; Start 05/28/18 at 11:45; Stop 05/28/18 at 11:46; Status DC Atorvastatin Calcium (Lipitor) 40 mg QHS PO Last administered on 05/29/18at 21: 02; Start 05/28/18 at 21:00 Duloxetine HCl (Cymbalta) 30 mg DAILY PO Last administered on 05/30/18at 09:50; Start 05/29/18 at 09:00 EZETIMIBE (Zetia) 10 mg DAILY PO Last administered on 05/30/18at 09:50; Start at 09:00 Insulin Glargine (Lantus) 75 units QHS SQ Last administered on 05/28/18at 20:11 ; Start 05/28/18 at 21:00; Stop 05/29/18 at 16:59; Status DC Fish Oil (Fish Oil) 1,000 mg BID PO Last administered on 05/30/18at 09:50; Start 05/28/18 at 21:00 Dipyridamole/ Aspirin (Aggrenox) 1 cap BID PO Last administered on 05/30/18at 09 :50; Start 05/28/18 at 21:00 Insulin Human Lispro (HumaLOG) 25 units TIDWMEALS SQ ; Start 05/28/18 at 17:00; Stop 05/29/18 at 16:59; Status DC Memantine (Namenda) 10 mg BID PO Last administered on 05/30/18at 09:51; Start at 21:00 Non-Formulary Medication (Ubidecarenone (Co Q-10)) 200 mg DAILY PO ; Start 05/29 at 09:00; Status UNV Vitamin D (Vitamin D3) 1,000 unit DAILY PO Last administered on 05/30/18at 09:50 ; Start 05/29/18 at 09:00 Donepezil HCl (Aricept) 10 mg DAILY PO Last administered on 05/30/18 09:51; Start 05/29/18 at 09:00 Heparin Sodium (Porcine) (Heparin Sq) 5,000 unit Q8HRS SQ Last administered on 05/30/18at 14:48; Start 05/28/18 at 14:00 Levofloxacin/ Dextrose 50 ml @ 50 mls/hr 1X ONCE IV Last administered on at 13:30; Start 05/28/18 at 14:00; Stop 05/28/18 at 14:59; Status DC Ondansetron HCl (Zofran) 4 mg PRN Q8HRS PRN IV NAUSEA/VOMITING; Start 05/28/18 at 14:15; Stop 05/29/18 at 14:14; Status DC Morphine Sulfate (Morphine Sulfate) 2 mg PRN Q2HR PRN IV PAIN Last administered on 05/28/18 19:58; Start 05/28/18 at 14:15; Stop 05/29/18 at 14:14 ; Status DC Sodium Chloride 1,000 ml @ 100 mls/hr 1X ONCE IV Last administered on at 17:14; Start 05/28/18 at 14:15; Stop 05/29/18 at 00:14; Status DC Pantoprazole Sodium (PROTONIX VIAL for IV PUSH) 40 mg DAILYAC IVP Last administered on 05/30/18 09:50; Start 05/29/18 at 07:30 Amlodipine Besylate (Norvasc) 5 mg DAILY PO Last administered on 05/30/18at 09: 51; Start 05/29/18 at 09:00 Carvedilol (Coreg) 25 mg BIDWMEALS PO Last administered on 05/30/18 09:52; Start 05/28/18 at 17:00; Stop 05/30/18 at 13:42; Status DC Info (FLU VACCINE SCREEN per RX) 1 each PRN 1X PRN MC SEE COMMENTS; Start 05/28 at 19:00; Status UNV Influenza Virus Vaccine (Afluria Trivalent [id number] Syringe) 0.5 ml ONCE ONCE VAX IM Last administered on 05/29/18at 11:35; Start 05/28/18 at 20:00; Stop at 20:01; Status DC Gabapentin (Neurontin) 100 mg TID PO Last administered on 05/30/18at 14:44; Start 05/28/18 at 21:00 Dextrose (Dextrose 50%-Water Syringe) 12.5 gm PRN Q15MIN PRN IV SEE COMMENTS Last administered on 05/30/18at 07:14; Start 05/29/18 at 11:30 Insulin Glargine (Lantus) 30 units QHS SQ Last administered on 05/29/18at 21:06 ; Start 05/29/18 at 21:00 Insulin Human Lispro (HumaLOG) 15 units TIDWMEALS SQ ; Start 05/29/18 at 17:00 Azithromycin 250 mg/Sodium Chloride 250 ml @ 250 mls/hr Q24H IV ; Start at 18:00; Stop 05/29/18 at 18:00; Status DC Azithromycin 250 mg/Sodium Chloride 250 ml @ 250 mls/hr Q24H IV Last administered on 05/29/18at 19:36; Start 05/29/18 at 20:00; Stop 05/30/18 at 15:10 ; Status DC Lactobacillus Rhamnosus (Culturelle) 1 cap BID PO Last administered on at 09:50; Start 05/30/18 at 09:00 Carvedilol (Coreg) 12.5 mg BIDWMEALS PO ; Start 05/30/18 at 17:00 Azithromycin (Zithromax) 250 mg DAILY PO ; Start 05/30/18 at 16:00 Active Scripts Active Lantus Solostar (Insulin Glargine,Hum.rec.anlog) 100 Unit/1 Ml Insuln.pen 75 Units SQ QHS 30 Days Cymbalta (Duloxetine Hcl) 30 Mg Capsule.dr 30 Mg PO DAILY 30 Days Hydrocodone-Apap 5-325 (Hydrocodone Bit/Acetaminophen) 1 Each Tablet 1-2 Tab PO PRN Q6HRS PRN 5 Days Hydrocodone-Apap 5-325 (Hydrocodone Bit/Acetaminophen) 1 Each Tablet 1 Tab PO PRN Q4HRS PRN Atorvastatin Calcium 40 Mg Tablet 1 Tab PO DAILY Novolog Flexpen (Insulin Aspart) 100 Unit/1 Ml Insuln.pen 25 Unit SQ TIDAC Bentyl (Dicyclomine Hcl) 10 Mg Capsule 10 Mg PO QID PRN Reported Protonix (Pantoprazole Sodium) 20 Mg Tablet.dr 40 Mg PO DAILY Gabapentin 100 Mg Capsule 100 Mg PO TID Amlodipine Besylate 5 Mg Tablet 5 Mg PO DAILY Coreg (Carvedilol) 25 Mg Tablet 25 Mg PO BIDWMEALS Cyclobenzaprine Hcl 10 Mg Tablet 1 Tab PO PRN TID PRN Namenda (Memantine Hcl) 10 Mg Tablet 10 Mg PO BID D3 + K2 Dots 1,000 Units Tab (Vitamin D3/Vitamin K2) 1 Each Tab.rapdis 1 Each PO DAILY Fish Oil 1,000 Mg Capsule ([place]-3 Fatty Acids/Fish Oil) 1 Each Capsule 1 Each PO BID Donepezil Hcl 10 Mg Tablet 1 Tab PO DAILY Aggrenox 25 Mg-200 Mg Capsule (Aspirin/Dipyridamole) 1 Each Cpmp.12hr 1 Cap PO BID Cozaar (Losartan Potassium) 100 Mg Tablet 1 Tab PO DAILY Lasix (Furosemide) 20 Mg Tablet 1 Tab PO DAILY Zetia (Ezetimibe) 10 Mg Tablet 1 Tab PO DAILY Potassium Chloride 10 Meq Capsule.er 1 Cap PO DAILY Magnesium Gluconate 30 Mg Tablet 250 Mg PO Co Q-10 (Ubidecarenone) 200 Mg Capsule 200 Mg PO DAILY Vitals/I & O Vital Sign - Last 24 Hours 05/29/18 05/29/18 05/29/18 05/29/18 15:22 19:20 19:39 23:05 Temp 97.8 97.8 98.2 97.8 97.8 98.2 Pulse 49 53 55 Resp 16 20 18 B/P (MAP) 93/56 (68) 112/45 (67) 122/51 (74) Pulse Ox 90 91 95 O2 Delivery Room Air Room Air Room Air Room Air 05/30/18 05/30/18 05/30/18 05/30/18 02:56 07:00 08:00 09:51 Temp 97.7 97.5 97.7 97.5 Pulse 59 58 58 Resp 18 18 B/P (MAP) 104/51 (68) 158/59 (92) 158/59 Pulse Ox 89 97 O2 Delivery Nasal Cannula Nasal Cannula Room Air O2 Flow Rate 3.0 3.0 05/30/18 05/30/18 05/30/18 09:52 11:00 15:00 Temp 97.6 97.6 97.6 97.6 Pulse 58 58 68 B/P (MAP) 158/59 109/45 (66) 106/44 (64) Pulse Ox 99 99 O2 Flow Rate 3.0 3.0 Intake and Output 05/29/18 05/29/18 05/30/18 15:00 23:00 07:00 Intake Total 1600 ml 100 ml Output Total 400 ml 375 ml Balance 1200 ml -275 ml ARANZA CHANEY III DO May 30, 2018 15:25
[2018-05-30] MEDS: AZITHROMYCIN 250 MG TABLET. PO SCH (16:54)
[2018-05-30 19:36] VITALS: BP 115/44
[2018-05-30] MEDS: ATORVASTATIN CALCIUM 40 MG TABLET. PO SCH (20:37)
[2018-05-30] MEDS: INSULIN GLARGINE 300 UNITS/3 ML INSULN.PEN. SQ SCH (20:39)
[2018-05-30 23:30] VITALS: BP 110/40
[2018-05-31 03:59] VITALS: BP 144/56
[2018-05-31] MEDS: DEXTROSE 50% 25 GM / 50ML DISP.SYRIN. IV PRN ×2 (04:26→06:39)
[2018-05-31 05:27] LABS: BASO % 0 % (0-3); EOS # 0.1 x10^3/uL (0.0-0.7); EOS % 1 % (0-3); HEMOGLOBIN 9.9 g/dL (13.0-17.5); LYMPH # 0.5 x10^3/uL (1.0-4.8); LYMPH % 4 % (24-48); MEAN CORPUSCULAR HEMOGLOBIN 31 pg (25-35); MEAN CORPUSCULAR HGB CONC 34 g/dL (31-37); MEAN CORPUSCULAR VOLUME 93 fL (79-100); MONO # 1.2 x10^3/uL (0.0-1.1); MONO % 9 % (0-9); NEUT # 11.7 x10^3uL (1.8-7.7); NEUT % 87 % (31-73); PLATELET COUNT 296 x10^3/uL (140-400); RED BLOOD COUNT 3.14 x10^6/uL (4.30-5.70); RED CELL DISTRIBUTION WIDTH 13.9 % (11.5-14.5); WHITE BLOOD COUNT 13.5 x10^3/uL (4.0-11.0)
[2018-05-31] MEDS: HEPARIN PF for SUB-Q USE 5,000 UNIT/0.5 ML VIAL. SQ SCH (06:04)
[2018-05-31 06:16] LABS: ALBUMIN 2.3 g/dL (3.4-5.0); ALBUMIN/GLOBULIN RATIO 0.5 (1.0-1.7); CALCIUM 8.5 mg/dL (8.5-10.1); CREATININE 1.4 mg/dL (0.7-1.3); GFR 49.8; POTASSIUM 3.2 mmol/L (3.5-5.1); TOTAL BILIRUBIN 0.4 mg/dL (0.2-1.0); TOTAL PROTEIN 6.6 g/dL (6.4-8.2)
[2018-05-31 06:51] VITALS: BP 136/48
[2018-05-31] MEDS: PANTOPRAZOLE IV PUSH 40 MG VIAL. IVP SCH (07:30)
[2018-05-31] MEDS ORDERED: PANTOPRAZOLE 40 MG TABLET.DR. PO SCH (08:00)
[2018-05-31] MEDS: INSULIN LISPRO 300 UNITS/3 ML INSULN.PEN. SQ SCH ×2 (08:00→11:29)
[2018-05-31] MEDS: CARVEDILOL 12.5 MG TABLET. PO SCH (08:00)
--- NOTE | 2018-05-31 08:21 | RAD ---
Examination: PORTABLE CHEST 1V History: CHF Comparison/Correlation: 05/29/2018 portable chest x-ray exam Findings: Portable frontal view of the chest was obtained. Surgical clips at the right superior apical level are present. Sternal wires are present. Mediastinal clips are present. Triple lead left-sided pacemaker is present. Heart size is borderline. Slight pulmonary vasculature congestion noted. No significant effusion. Right upper quadrant surgical clips are present. Impression: Slight increase in congestive heart failure. Electronically signed by: Jed Patel MD (05/31/2018 8:18 AM) [facility]
[2018-05-31] MEDS: OMEGA-3 FATTY ACIDS/FISH OIL 1,000 MG CAPSULE. PO SCH (08:58)
[2018-05-31] MEDS: ASPIRIN/DIPYRIDAMOLE 200/25MG CAP.ER.12H. PO SCH (08:58)
[2018-05-31] MEDS: EZETIMIBE 10 MG TABLET. PO SCH (08:58)
[2018-05-31] MEDS: LACTOBACILLUS RHAMNOSUS GG 1 CAPSULE. PO SCH (08:58)
[2018-05-31] MEDS: DONEPEZIL HCL 10 MG TABLET. PO SCH (08:59)
[2018-05-31] MEDS: AZITHROMYCIN 250 MG TABLET. PO SCH (08:59)
[2018-05-31] MEDS: MEMANTINE 10 MG TABLET. PO SCH (08:59)
[2018-05-31] MEDS: amLODIPine BESYLATE 5 MG TABLET PO SCH (08:59)
[2018-05-31] MEDS: CHOLECALCIFEROL (VITAMIN D3) 1,000 UNIT TABLET PO SCH (08:59)
[2018-05-31] MEDS: DULoxetine HCL 30 MG CAPSULE.DR PO SCH (08:59)
[2018-05-31] MEDS: GABAPENTIN 100 MG CAPSULE. PO SCH (08:59)
[2018-05-31 11:25] VITALS: BP 126/46
--- NOTE | 2018-05-31 11:42 | DISCH ---
DISCHARGE DISCHARGE INFORMATION: FINAL DIAGNOSIS Problems Medical Problems: (1) Abdominal pain Status: Acute CONDITION ON DISCHARGE: Stable CODE STATUS: Code Status: Full LONG TERM: SNF STAY <30 DAYS: Yes HOSPICE: HOSPICE: No HOSPICE EVAL & TREAT: No LTAC: ADMIT TO LTAC: No POST DISCHARGE ORDERS: ACTIVITY ORDERS: Activity as tolerated WEIGHT BEARING STATUS: As tolerated DIET AFTER DISCHARGE: Cardiac TREATMENT/EQUIPMENT ORDERS: ADAPTIVE EQUIPMENT NEEDED: None Physical Therapy For: Evalulation/Treatment Occupational Therapy For: Evaluation/Treatment DISCHARGE MEDICATIONS: Home Meds Active Scripts Insulin Glargine,Hum.rec.anlog (LANTUS SOLOSTAR) 100 Unit/1 Ml Insuln.pen, 75 UNITS SQ QHS for 30 Days, #1 EACH Prov:OSWALD KNOX MD 01/12/18 Duloxetine Hcl (CYMBALTA) 30 Mg Capsule.dr, 30 MG PO DAILY for 30 Days, #30 CAP Prov:OSWALD KNOX MD 01/12/18 Hydrocodone Bit/Acetaminophen (HYDROCODONE-APAP 5-325 ) 1 Each Tablet, 1-2 TAB PO PRN Q6HRS PRN for PAIN for 5 Days, #10 TAB 0 Refills Prov:ISA PAINTER MD 10/31/17 Hydrocodone Bit/Acetaminophen (HYDROCODONE-APAP 5-325 ) 1 Each Tablet, 1 TAB PO PRN Q4HRS PRN for MILD PAIN, #30 TAB Prov:MAURI CAMPBELL MD 09/17/16 Atorvastatin Calcium (ATORVASTATIN CALCIUM) 40 Mg Tablet, 1 TAB PO DAILY, #30 TAB 5 Refills Prov:FAIZAN RAY MD 09/14/16 Insulin Aspart (NOVOLOG FLEXPEN) 100 Unit/1 Ml Insuln.pen, 25 UNIT SQ TIDAC, #1 SYR Prov:FAIZAN RAY MD 09/14/16 Dicyclomine Hcl (BENTYL) 10 Mg Capsule, 10 MG PO QID PRN for PAIN, #14 TAB Prov:ANDREA SIN DO 09/07/16 Reported Medications Pantoprazole Sodium (PROTONIX) 20 Mg Tablet.dr, 40 MG PO DAILY, TAB 05/28/18 Gabapentin (GABAPENTIN) 100 Mg Capsule, 100 MG PO TID, CAP 05/28/18 Amlodipine Besylate (AMLODIPINE BESYLATE) 5 Mg Tablet, 5 MG PO DAILY, TAB 05/28/18 Carvedilol (COREG) 25 Mg Tablet, 25 MG PO BIDWMEALS, TAB 05/28/18 Cyclobenzaprine Hcl (CYCLOBENZAPRINE HCL) 10 Mg Tablet, 1 TAB PO PRN TID PRN for PAIN, #90 TAB 03/03/18 Memantine Hcl (NAMENDA) 10 Mg Tablet, 10 MG PO BID, TAB 12/25/17 Vitamin D3/Vitamin K2 (D3 + K2 DOTS 1,000 UNITS TAB) 1 Each Tab.rapdis, 1 EACH PO DAILY 09/14/16 [place]-3 Fatty Acids/Fish Oil (FISH OIL 1,000 MG CAPSULE) 1 Each Capsule, 1 EACH PO BID 09/14/16 Donepezil Hcl (DONEPEZIL HCL) 10 Mg Tablet, 1 TAB PO DAILY, #90 TAB 1 Refill 09/14/16 Aspirin/Dipyridamole (AGGRENOX 25 MG-200 MG CAPSULE) 1 Each Cpmp.12hr, 1 CAP PO BID, #60 CAP 5 Refills 04/12/14 Losartan Potassium (COZAAR) 100 Mg Tablet, 1 TAB PO DAILY, #30 TAB 5 Refills 04/12/14 Furosemide (LASIX) 20 Mg Tablet, 1 TAB PO DAILY, #90 TAB 1 Refill 04/12/14 Ezetimibe (ZETIA) 10 Mg Tablet, 1 TAB PO DAILY, #30 TAB 5 Refills 04/12/14 Potassium Chloride (POTASSIUM CHLORIDE) 10 Meq Capsule.er, 1 CAP PO DAILY, #90 CAP 1 Refill 04/12/14 Magnesium Gluconate (MAGNESIUM GLUCONATE) 30 Mg Tablet, 250 MG PO 04/12/14 Ubidecarenone (CO Q-10) 200 Mg Capsule, 200 MG PO DAILY 04/12/14 ARANZA CHANEY III DO May 31, 2018 11:42
--- NOTE | 2018-05-31 12:30 | PDOC ---
PROGRESS NOTES Chief Complaint Chief Complaint Bacterial Pneumonia, gram positive Hypoglycemia Diabetes Mellitus type 2 Hypertension Moderate cognitive impairment Acute kidney injury History of Present Illness History of Present Illness Pt seen and examined; up rinsing mouth in bathroom. DW nursing VSS Vitals Vitals Vital Signs Date Time Temp Pulse Resp B/P (MAP) Pulse Ox O2 Delivery O2 Flow Rate FiO2 05/31/18 11:25 97.5 50 16 126/46 (72) 96 Nasal Cannula 2.0 97.5 Physical Exam General: Cooperative, No acute distress Heart: Normal S1, Normal S2 Lungs: Clear Abdomen: Normal bowel sounds, Soft Extremities: No cyanosis, No edema Skin: No rashes, No significant lesion Labs LABS Laboratory Tests Test 05/30/18 16:38 05/30/18 20:30 05/30/18 21:10 05/31/18 04:00 Glucose (Fingerstick) 68 mg/dL (70-99) 49 mg/dL (70-99) 64 mg/dL (70-99) White Blood Count 13.5 x10^3/uL (4.0-11.0) Red Blood Count 3.14 x10^6/uL (4.30-5.70) Hemoglobin 9.9 g/dL (13.0-17.5) Hematocrit 29.0 % (39.0-53.0) Mean Corpuscular Volume 93 fL (79-100) Mean Corpuscular Hemoglobin 31 pg (25-35) Mean Corpuscular Hemoglobin Concent 34 g/dL (31-37) Red Cell Distribution Width 13.9 % (11.5-14.5) Platelet Count 296 x10^3/uL (140-400) Neutrophils (%) (Auto) 87 % (31-73) Lymphocytes (%) (Auto) 4 % (24-48) Monocytes (%) (Auto) 9 % (0-9) Eosinophils (%) (Auto) 1 % (0-3) Basophils (%) (Auto) 0 % (0-3) Neutrophils # (Auto) 11.7 x10^3uL (1.8-7.7) Lymphocytes # (Auto) 0.5 x10^3/uL (1.0-4.8) Monocytes # (Auto) 1.2 x10^3/uL (0.0-1.1) Eosinophils # (Auto) 0.1 x10^3/uL (0.0-0.7) Basophils # (Auto) 0.0 x10^3/uL (0.0-0.2) Sodium Level 144 mmol/L (136-145) Potassium Level 3.2 mmol/L (3.5-5.1) Chloride Level 108 mmol/L (98-107) Carbon Dioxide Level 24 mmol/L (21-32) Anion Gap 12 (6-14) Blood Urea Nitrogen 31 mg/dL (8-26) Creatinine 1.4 mg/dL (0.7-1.3) Estimated GFR (Cockcroft-Gault) 49.8 BUN/Creatinine Ratio 22 (6-20) Glucose Level 25 mg/dL (70-99) Calcium Level 8.5 mg/dL (8.5-10.1) Total Bilirubin 0.4 mg/dL (0.2-1.0) Aspartate Amino Transf (AST/SGOT) 31 U/L (15-37) Alanine Aminotransferase (ALT/SGPT) 20 U/L (16-63) Alkaline Phosphatase 61 U/L (46-116) Total Protein 6.6 g/dL (6.4-8.2) Albumin 2.3 g/dL (3.4-5.0) Albumin/Globulin Ratio 0.5 (1.0-1.7) Test 05/31/18 04:13 05/31/18 05:11 05/31/18 06:32 05/31/18 08:07 Glucose (Fingerstick) 31 mg/dL (70-99) 72 mg/dL (70-99) 48 mg/dL (70-99) 66 mg/dL (70-99) Test 05/31/18 11:14 Glucose (Fingerstick) 90 mg/dL (70-99) Review of Systems Review of Systems Pt denies weakness, denies angina. Assessment and Plan Assessmemt and Plan Problems Medical Problems: (1) Abdominal pain Status: Acute Assessment: Bacterial Pneumonia, gram positive Hypoglycemia Diabetes Mellitus type 2 Hypertension Moderate cognitive impairment Acute kidney injury Plan: Cardiac monitoring IVF Continue antibiotics Labs Adjusting insulin secondary to hypoglycemia F/u with cardiology, pulmonology, nephrology; appreciate their input PT/OT Possible discharge if okay with subspecialists Comment Review of Relevant I have reviewed the following items harman (where applicable) has been applied. Labs Laboratory Tests Test 05/29/18 14:59 05/29/18 16:14 05/29/18 20:55 05/30/18 07:01 Glucose (Fingerstick) 66 mg/dL (70-99) 131 mg/dL (70-99) 165 mg/dL (70-99) 36 mg/dL (70-99) Test 05/30/18 07:42 05/30/18 09:00 05/30/18 11:55 05/30/18 16:38 Glucose (Fingerstick) 151 mg/dL (70-99) 75 mg/dL (70-99) 68 mg/dL (70-99) White Blood Count 10.4 x10^3/uL (4.0-11.0) Red Blood Count 3.07 x10^6/uL (4.30-5.70) Hemoglobin 9.8 g/dL (13.0-17.5) Hematocrit 28.8 % (39.0-53.0) Mean Corpuscular Volume 94 fL (79-100) Mean Corpuscular Hemoglobin 32 pg (25-35) Mean Corpuscular Hemoglobin Concent 34 g/dL (31-37) Red Cell Distribution Width 14.0 % (11.5-14.5) Platelet Count 225 x10^3/uL (140-400) Neutrophils (%) (Auto) 88 % (31-73) Lymphocytes (%) (Auto) 4 % (24-48) Monocytes (%) (Auto) 7 % (0-9) Eosinophils (%) (Auto) 1 % (0-3) Basophils (%) (Auto) 0 % (0-3) Neutrophils # (Auto) 9.2 x10^3uL (1.8-7.7) Lymphocytes # (Auto) 0.4 x10^3/uL (1.0-4.8) Monocytes # (Auto) 0.8 x10^3/uL (0.0-1.1) Eosinophils # (Auto) 0.1 x10^3/uL (0.0-0.7) Basophils # (Auto) 0.0 x10^3/uL (0.0-0.2) Sodium Level 146 mmol/L (136-145) Potassium Level 3.7 mmol/L (3.5-5.1) Chloride Level 111 mmol/L (98-107) Carbon Dioxide Level 26 mmol/L (21-32) Anion Gap 9 (6-14) Blood Urea Nitrogen 31 mg/dL (8-26) Creatinine 1.8 mg/dL (0.7-1.3) Estimated GFR (Cockcroft-Gault) 37.3 Glucose Level 88 mg/dL (70-99) Calcium Level 8.6 mg/dL (8.5-10.1) Test 05/30/18 20:30 05/30/18 21:10 05/31/18 04:00 05/31/18 04:13 Glucose (Fingerstick) 49 mg/dL (70-99) 64 mg/dL (70-99) 31 mg/dL (70-99) White Blood Count 13.5 x10^3/uL (4.0-11.0) Red Blood Count 3.14 x10^6/uL (4.30-5.70) Hemoglobin 9.9 g/dL (13.0-17.5) Hematocrit 29.0 % (39.0-53.0) Mean Corpuscular Volume 93 fL (79-100) Mean Corpuscular Hemoglobin 31 pg (25-35) Mean Corpuscular Hemoglobin Concent 34 g/dL (31-37) Red Cell Distribution Width 13.9 % (11.5-14.5) Platelet Count 296 x10^3/uL (140-400) Neutrophils (%) (Auto) 87 % (31-73) Lymphocytes (%) (Auto) 4 % (24-48) Monocytes (%) (Auto) 9 % (0-9) Eosinophils (%) (Auto) 1 % (0-3) Basophils (%) (Auto) 0 % (0-3) Neutrophils # (Auto) 11.7 x10^3uL (1.8-7.7) Lymphocytes # (Auto) 0.5 x10^3/uL (1.0-4.8) Monocytes # (Auto) 1.2 x10^3/uL (0.0-1.1) Eosinophils # (Auto) 0.1 x10^3/uL (0.0-0.7) Basophils # (Auto) 0.0 x10^3/uL (0.0-0.2) Sodium Level 144 mmol/L (136-145) Potassium Level 3.2 mmol/L (3.5-5.1) Chloride Level 108 mmol/L (98-107) Carbon Dioxide Level 24 mmol/L (21-32) Anion Gap 12 (6-14) Blood Urea Nitrogen 31 mg/dL (8-26) Creatinine 1.4 mg/dL (0.7-1.3) Estimated GFR (Cockcroft-Gault) 49.8 BUN/Creatinine Ratio 22 (6-20) Glucose Level 25 mg/dL (70-99) Calcium Level 8.5 mg/dL (8.5-10.1) Total Bilirubin 0.4 mg/dL (0.2-1.0) Aspartate Amino Transf (AST/SGOT) 31 U/L (15-37) Alanine Aminotransferase (ALT/SGPT) 20 U/L (16-63) Alkaline Phosphatase 61 U/L (46-116) Total Protein 6.6 g/dL (6.4-8.2) Albumin 2.3 g/dL (3.4-5.0) Albumin/Globulin Ratio 0.5 (1.0-1.7) Test 05/31/18 05:11 05/31/18 06:32 05/31/18 08:07 05/31/18 11:14 Glucose (Fingerstick) 72 mg/dL (70-99) 48 mg/dL (70-99) 66 mg/dL (70-99) 90 mg/dL (70-99) Laboratory Tests Test 05/30/18 16:38 05/30/18 20:30 05/30/18 21:10 05/31/18 04:00 Glucose (Fingerstick) 68 mg/dL (70-99) 49 mg/dL (70-99) 64 mg/dL (70-99) White Blood Count 13.5 x10^3/uL (4.0-11.0) Red Blood Count 3.14 x10^6/uL (4.30-5.70) Hemoglobin 9.9 g/dL (13.0-17.5) Hematocrit 29.0 % (39.0-53.0) Mean Corpuscular Volume 93 fL (79-100) Mean Corpuscular Hemoglobin 31 pg (25-35) Mean Corpuscular Hemoglobin Concent 34 g/dL (31-37) Red Cell Distribution Width 13.9 % (11.5-14.5) Platelet Count 296 x10^3/uL (140-400) Neutrophils (%) (Auto) 87 % (31-73) Lymphocytes (%) (Auto) 4 % (24-48) Monocytes (%) (Auto) 9 % (0-9) Eosinophils (%) (Auto) 1 % (0-3) Basophils (%) (Auto) 0 % (0-3) Neutrophils # (Auto) 11.7 x10^3uL (1.8-7.7) Lymphocytes # (Auto) 0.5 x10^3/uL (1.0-4.8) Monocytes # (Auto) 1.2 x10^3/uL (0.0-1.1) Eosinophils # (Auto) 0.1 x10^3/uL (0.0-0.7) Basophils # (Auto) 0.0 x10^3/uL (0.0-0.2) Sodium Level 144 mmol/L (136-145) Potassium Level 3.2 mmol/L (3.5-5.1) Chloride Level 108 mmol/L (98-107) Carbon Dioxide Level 24 mmol/L (21-32) Anion Gap 12 (6-14) Blood Urea Nitrogen 31 mg/dL (8-26) Creatinine 1.4 mg/dL (0.7-1.3) Estimated GFR (Cockcroft-Gault) 49.8 BUN/Creatinine Ratio 22 (6-20) Glucose Level 25 mg/dL (70-99) Calcium Level 8.5 mg/dL (8.5-10.1) Total Bilirubin 0.4 mg/dL (0.2-1.0) Aspartate Amino Transf (AST/SGOT) 31 U/L (15-37) Alanine Aminotransferase (ALT/SGPT) 20 U/L (16-63) Alkaline Phosphatase 61 U/L (46-116) Total Protein 6.6 g/dL (6.4-8.2) Albumin 2.3 g/dL (3.4-5.0) Albumin/Globulin Ratio 0.5 (1.0-1.7) Test 05/31/18 04:13 05/31/18 05:11 05/31/18 06:32 05/31/18 08:07 Glucose (Fingerstick) 31 mg/dL (70-99) 72 mg/dL (70-99) 48 mg/dL (70-99) 66 mg/dL (70-99) Test 05/31/18 11:14 Glucose (Fingerstick) 90 mg/dL (70-99) Medications Current Medications Ondansetron HCl (Zofran) 4 mg 1X ONCE IV Last administered on 05/28/18at 10:20 ; Start 05/28/18 at 10:15; Stop 05/28/18 at 10:16; Status DC Pantoprazole Sodium (PROTONIX VIAL for IV PUSH) 40 mg 1X ONCE IVP Last administered on 05/28/18at 10:20; Start 05/28/18 at 10:15; Stop 05/28/18 at 10:16 ; Status DC Sodium Chloride 1,000 ml @ 1,000 mls/hr 1X ONCE IV Last administered on at 10:20; Start 05/28/18 at 10:15; Stop 05/28/18 at 11:14; Status DC Iohexol (Omnipaque 240 Mg/ml) 30 ml 1X ONCE PO ; Start 05/28/18 at 11:15; Stop 05/28/18 at 11:16; Status DC Iohexol (Omnipaque 300 Mg/ml) 75 ml 1X ONCE IV ; Start 05/28/18 at 11:15; Stop 05/28/18 at 11:16; Status DC Info (CONTRAST GIVEN -- Rx MONITORING) 1 each PRN DAILY PRN MC SEE COMMENTS; Start 05/28/18 at 11:15; Stop 05/30/18 at 11:14; Status DC Aspirin (Katey Aspirin) 325 mg 1X ONCE PO Last administered on 05/28/18at 12:17 ; Start 05/28/18 at 11:45; Stop 05/28/18 at 11:46; Status DC Atorvastatin Calcium (Lipitor) 40 mg QHS PO Last administered on 05/30/18at 20: 37; Start 05/28/18 at 21:00 Duloxetine HCl (Cymbalta) 30 mg DAILY PO Last administered on 05/31/18at 08:59; Start 05/29/18 at 09:00 EZETIMIBE (Zetia) 10 mg DAILY PO Last administered on 05/31/18 08:58; Start at 09:00 Insulin Glargine (Lantus) 75 units QHS SQ Last administered on 05/28/18at 20:11 ; Start 05/28/18 at 21:00; Stop 05/29/18 at 16:59; Status DC Fish Oil (Fish Oil) 1,000 mg BID PO Last administered on 05/31/18 08:58; Start 05/28/18 at 21:00 Dipyridamole/ Aspirin (Aggrenox) 1 cap BID PO Last administered on 05/31/18 08 :58; Start 05/28/18 at 21:00 Insulin Human Lispro (HumaLOG) 25 units TIDWMEALS SQ ; Start 05/28/18 at 17:00; Stop 05/29/18 at 16:59; Status DC Memantine (Namenda) 10 mg BID PO Last administered on 05/31/18 08:59; Start at 21:00 Non-Formulary Medication (Ubidecarenone (Co Q-10)) 200 mg DAILY PO ; Start 05/29 at 09:00; Status UNV Vitamin D (Vitamin D3) 1,000 unit DAILY PO Last administered on 05/31/18 08:59 ; Start 05/29/18 at 09:00 Donepezil HCl (Aricept) 10 mg DAILY PO Last administered on 05/31/18 08:59; Start 05/29/18 at 09:00 Heparin Sodium (Porcine) (Heparin Sq) 5,000 unit Q8HRS SQ Last administered on 05/31/18at 06:04; Start 05/28/18 at 14:00 Levofloxacin/ Dextrose 50 ml @ 50 mls/hr 1X ONCE IV Last administered on at 13:30; Start 05/28/18 at 14:00; Stop 05/28/18 at 14:59; Status DC Ondansetron HCl (Zofran) 4 mg PRN Q8HRS PRN IV NAUSEA/VOMITING; Start 05/28/18 at 14:15; Stop 05/29/18 at 14:14; Status DC Morphine Sulfate (Morphine Sulfate) 2 mg PRN Q2HR PRN IV PAIN Last administered on 9/24/18at 19:58; Start 05/28/18 at 14:15; Stop 05/29/18 at 14:14 ; Status DC Sodium Chloride 1,000 ml @ 100 mls/hr 1X ONCE IV Last administered on at 17:14; Start 05/28/18 at 14:15; Stop 05/29/18 at 00:14; Status DC Pantoprazole Sodium (PROTONIX VIAL for IV PUSH) 40 mg DAILYAC IVP Last administered on 05/30/18at 09:50; Start 05/29/18 at 07:30; Stop 05/31/18 at 08:16 ; Status DC Amlodipine Besylate (Norvasc) 5 mg DAILY PO Last administered on 05/31/18at 08: 59; Start 05/29/18 at 09:00 Carvedilol (Coreg) 25 mg BIDWMEALS PO Last administered on 05/30/18at 09:52; Start 05/28/18 at 17:00; Stop 05/30/18 at 13:42; Status DC Info (FLU VACCINE SCREEN per RX) 1 each PRN 1X PRN MC SEE COMMENTS; Start 05/28 at 19:00; Status UNV Influenza Virus Vaccine (Afluria Trivalent [id number] Syringe) 0.5 ml ONCE ONCE VAX IM Last administered on 05/29/18at 11:35; Start 05/28/18 at 20:00; Stop at 20:01; Status DC Gabapentin (Neurontin) 100 mg TID PO Last administered on 05/31/18at 08:59; Start 05/28/18 at 21:00 Dextrose (Dextrose 50%-Water Syringe) 12.5 gm PRN Q15MIN PRN IV SEE COMMENTS Last administered on 05/31/18at 06:39; Start 05/29/18 at 11:30 Insulin Glargine (Lantus) 30 units QHS SQ Last administered on 05/29/18at 21:06 ; Start 05/29/18 at 21:00 Insulin Human Lispro (HumaLOG) 15 units TIDWMEALS SQ ; Start 05/29/18 at 17:00 Azithromycin 250 mg/Sodium Chloride 250 ml @ 250 mls/hr Q24H IV ; Start at 18:00; Stop 05/29/18 at 18:00; Status DC Azithromycin 250 mg/Sodium Chloride 250 ml @ 250 mls/hr Q24H IV Last administered on 05/29/18at 19:36; Start 05/29/18 at 20:00; Stop 05/30/18 at 15:10 ; Status DC Lactobacillus Rhamnosus (Culturelle) 1 cap BID PO Last administered on at 08:58; Start 05/30/18 at 09:00 Carvedilol (Coreg) 12.5 mg BIDWMEALS PO Last administered on 05/30/18at 16:54; Start 05/30/18 at 17:00 Azithromycin (Zithromax) 250 mg DAILY PO Last administered on 05/31/18at 08:59; Start 05/30/18 at 16:00 Pantoprazole Sodium (Protonix) 40 mg DAILYAC PO Last administered on 05/31/18at 08:59; Start 05/31/18 at 08:00 Active Scripts Active Lantus Solostar (Insulin Glargine,Hum.rec.anlog) 100 Unit/1 Ml Insuln.pen 75 Units SQ QHS 30 Days Cymbalta (Duloxetine Hcl) 30 Mg Capsule.dr 30 Mg PO DAILY 30 Days Hydrocodone-Apap 5-325 (Hydrocodone Bit/Acetaminophen) 1 Each Tablet 1-2 Tab PO PRN Q6HRS PRN 5 Days Hydrocodone-Apap 5-325 (Hydrocodone Bit/Acetaminophen) 1 Each Tablet 1 Tab PO PRN Q4HRS PRN Atorvastatin Calcium 40 Mg Tablet 1 Tab PO DAILY Novolog Flexpen (Insulin Aspart) 100 Unit/1 Ml Insuln.pen 25 Unit SQ TIDAC Bentyl (Dicyclomine Hcl) 10 Mg Capsule 10 Mg PO QID PRN Reported Protonix (Pantoprazole Sodium) 20 Mg Tablet.dr 40 Mg PO DAILY Gabapentin 100 Mg Capsule 100 Mg PO TID Amlodipine Besylate 5 Mg Tablet 5 Mg PO DAILY Coreg (Carvedilol) 25 Mg Tablet 25 Mg PO BIDWMEALS Cyclobenzaprine Hcl 10 Mg Tablet 1 Tab PO PRN TID PRN Namenda (Memantine Hcl) 10 Mg Tablet 10 Mg PO BID D3 + K2 Dots 1,000 Units Tab (Vitamin D3/Vitamin K2) 1 Each Tab.rapdis 1 Each PO DAILY Fish Oil 1,000 Mg Capsule (Lexa-3 Fatty Acids/Fish Oil) 1 Each Capsule 1 Each PO BID Donepezil Hcl 10 Mg Tablet 1 Tab PO DAILY Aggrenox 25 Mg-200 Mg Capsule (Aspirin/Dipyridamole) 1 Each Cpmp.12hr 1 Cap PO BID Cozaar (Losartan Potassium) 100 Mg Tablet 1 Tab PO DAILY Lasix (Furosemide) 20 Mg Tablet 1 Tab PO DAILY Zetia (Ezetimibe) 10 Mg Tablet 1 Tab PO DAILY Potassium Chloride 10 Meq Capsule.er 1 Cap PO DAILY Magnesium Gluconate 30 Mg Tablet 250 Mg PO Co Q-10 (Ubidecarenone) 200 Mg Capsule 200 Mg PO DAILY Vitals/I & O Vital Sign - Last 24 Hours 05/30/18 05/30/18 05/30/18 05/30/18 15:00 16:54 19:36 20:00 Temp 97.6 97.8 97.6 97.8 Pulse 68 68 52 Resp 14 B/P (MAP) 106/44 (64) 106/44 115/44 (67) Pulse Ox 99 96 O2 Delivery Nasal Cannula Nasal Cannula O2 Flow Rate 3.0 1.0 1.0 05/30/18 05/31/18 05/31/18 05/31/18 23:30 03:59 06:51 07:30 Temp 98.2 97.5 98.1 98.2 97.5 98.1 Pulse 52 50 50 Resp 18 14 16 B/P (MAP) 110/40 (63) 144/56 (85) 136/48 (77) Pulse Ox 93 91 93 O2 Delivery Nasal Cannula Nasal Cannula Nasal Cannula Nasal Cannula O2 Flow Rate 1.0 3.0 3.0 2.0 05/31/18 05/31/18 05/31/18 08:00 08:59 11:25 Temp 97.5 97.5 Pulse 50 50 50 Resp 16 B/P (MAP) 136/48 136/48 126/46 (72) Pulse Ox 96 O2 Delivery Nasal Cannula O2 Flow Rate 2.0 Intake and Output 05/30/18 05/30/18 05/31/18 15:00 23:00 07:00 Intake Total 1108 ml 300 ml Balance 1108 ml 300 ml RITUNIAL K III DO May 31, 2018 12:30
--- NOTE | 2018-05-31 13:27 | PDOC ---
SUBJECTIVE ROS No new concerns , OBJECTIVE Vital Signs Vital Signs Date Time Temp Pulse Resp B/P (MAP) Pulse Ox O2 Delivery O2 Flow Rate FiO2 05/31/18 11:25 97.5 50 16 126/46 (72) 96 Nasal Cannula 2.0 97.5 I & 0 Intake and Output 05/31/18 07:00 Intake Total 1408 ml Balance 1408 ml Intake Oral 1408 ml # Voids 3 # Bowel Movements 1 PHYSICAL EXAM Physical Exam GEN: NAD HEEN: OM dry No JVD, supple CVS: S1S2, RESP: No Rales, No Rhonchi,[nO Acc. Muscle Use GI: BS + ve, NO Bruit, Non Tender, Non Distended : No CVA tenderness, No Suprapubic Tenderness, No Rios Neuro- dementia Skin No rash DIAGNOSIS/ASSESSMENT Assessment & Plan ENRIQUE - On CKD Likely Pre-renal ,Improving Hypernatremia- Resolved CKD stage 3 - since 2017 Baseline 1.2-1.6 Hypokalemia- Resolved HTN- On Losartan and Lasix at Home Held Generalized abdominal pain, nausea vomiting and diarrhea. As per primary DM Dementia COMMENT/RELEVANT DATA Meds Current Medications Medications (Trade) Dose Ordered Sig/Sylwia Start Time Stop Time Status Last Admin Dose Admin Amlodipine Besylate (Norvasc) 5 mg DAILY 05/29/18 09:00 05/31/18 08:59 5 MG Aspirin (Katey Aspirin) 325 mg 1X ONCE 05/28/18 11:45 05/28/18 11:46 DC 05/28/18 12:17 325 MG Atorvastatin Calcium (Lipitor) 40 mg QHS 05/28/18 21:00 05/30/18 20:37 40 MG Azithromycin (Zithromax) 250 mg DAILY 05/30/18 16:00 05/31/18 08:59 250 MG Azithromycin 250 mg/Sodium Chloride 250 ml @ 250 mls/hr Q24H 05/29/18 20:00 05/30/18 15:10 DC 05/29/18 19:36 250 MLS/HR Carvedilol (Coreg) 12.5 mg BIDWMEALS 05/30/18 17:00 05/30/18 16:54 12.5 MG Dextrose (Dextrose 50%-Water Syringe) 12.5 gm PRN Q15MIN PRN 05/29/18 11:30 05/31/18 06:39 12.5 GM Dipyridamole/ Aspirin (Aggrenox) 1 cap BID 05/28/18 21:00 05/31/18 08:58 1 CAP Donepezil HCl (Aricept) 10 mg DAILY 05/29/18 09:00 05/31/18 08:59 10 MG Duloxetine HCl (Cymbalta) 30 mg DAILY 05/29/18 09:00 05/31/18 08:59 30 MG EZETIMIBE (Zetia) 10 mg DAILY 05/29/18 09:00 05/31/18 08:58 10 MG Fish Oil (Fish Oil) 1,000 mg BID 05/28/18 21:00 05/31/18 08:58 1,000 MG Gabapentin (Neurontin) 100 mg TID 05/28/18 21:00 05/31/18 08:59 100 MG Heparin Sodium (Porcine) (Heparin Sq) 5,000 unit Q8HRS 05/28/18 14:00 05/31/18 06:04 5,000 UNIT Influenza Virus Vaccine (Afluria Trivalent [id number] Syringe) 0.5 ml ONCE ONCE 05/28/18 20:00 05/28/18 20:01 DC 05/29/18 11:35 0.5 ML Info (CONTRAST GIVEN -- Rx MONITORING) 1 each PRN DAILY PRN 05/28/18 11:15 05/30/18 11:14 DC Info (FLU VACCINE SCREEN per RX) 1 each PRN 1X PRN 05/28/18 19:00 UNV Insulin Glargine (Lantus) 30 units QHS 05/29/18 21:00 05/29/18 21:06 30 UNITS Insulin Human Lispro (HumaLOG) 15 units TIDWMEALS 05/29/18 17:00 Iohexol (Omnipaque 240 Mg/ml) 30 ml 1X ONCE 05/28/18 11:15 05/28/18 11:16 DC Iohexol (Omnipaque 300 Mg/ml) 75 ml 1X ONCE 05/28/18 11:15 05/28/18 11:16 DC Lactobacillus Rhamnosus (Culturelle) 1 cap BID 05/30/18 09:00 05/31/18 08:58 1 CAP Levofloxacin/ Dextrose 50 ml @ 50 mls/hr 1X ONCE 05/28/18 14:00 05/28/18 14:59 DC 05/28/18 13:30 50 MLS/HR Memantine (Namenda) 10 mg BID 05/28/18 21:00 05/31/18 08:59 10 MG Morphine Sulfate (Morphine Sulfate) 2 mg PRN Q2HR PRN 05/28/18 14:15 05/29/18 14:14 DC 05/28/18 19:58 2 MG Non-Formulary Medication (Ubidecarenone (Co Q-10)) 200 mg DAILY 05/29/18 09:00 UNV Ondansetron HCl (Zofran) 4 mg PRN Q8HRS PRN 05/28/18 14:15 05/29/18 14:14 DC Pantoprazole Sodium (PROTONIX VIAL for IV PUSH) 40 mg DAILYAC 05/29/18 07:30 05/31/18 08:16 DC 05/30/18 09:50 40 MG Pantoprazole Sodium (Protonix) 40 mg DAILYAC 05/31/18 08:00 05/31/18 08:59 40 MG Sodium Chloride 1,000 ml @ 100 mls/hr 1X ONCE 05/28/18 14:15 05/29/18 00:14 DC 05/28/18 17:14 100 MLS/HR Vitamin D (Vitamin D3) 1,000 unit DAILY 05/29/18 09:00 05/31/18 08:59 1,000 UNIT Lab Laboratory Tests Test 05/30/18 16:38 05/30/18 20:30 05/30/18 21:10 05/31/18 04:00 Glucose (Fingerstick) 68 mg/dL (70-99) 49 mg/dL (70-99) 64 mg/dL (70-99) White Blood Count 13.5 x10^3/uL (4.0-11.0) Red Blood Count 3.14 x10^6/uL (4.30-5.70) Hemoglobin 9.9 g/dL (13.0-17.5) Hematocrit 29.0 % (39.0-53.0) Mean Corpuscular Volume 93 fL (79-100) Mean Corpuscular Hemoglobin 31 pg (25-35) Mean Corpuscular Hemoglobin Concent 34 g/dL (31-37) Red Cell Distribution Width 13.9 % (11.5-14.5) Platelet Count 296 x10^3/uL (140-400) Neutrophils (%) (Auto) 87 % (31-73) Lymphocytes (%) (Auto) 4 % (24-48) Monocytes (%) (Auto) 9 % (0-9) Eosinophils (%) (Auto) 1 % (0-3) Basophils (%) (Auto) 0 % (0-3) Neutrophils # (Auto) 11.7 x10^3uL (1.8-7.7) Lymphocytes # (Auto) 0.5 x10^3/uL (1.0-4.8) Monocytes # (Auto) 1.2 x10^3/uL (0.0-1.1) Eosinophils # (Auto) 0.1 x10^3/uL (0.0-0.7) Basophils # (Auto) 0.0 x10^3/uL (0.0-0.2) Sodium Level 144 mmol/L (136-145) Potassium Level 3.2 mmol/L (3.5-5.1) Chloride Level 108 mmol/L (98-107) Carbon Dioxide Level 24 mmol/L (21-32) Anion Gap 12 (6-14) Blood Urea Nitrogen 31 mg/dL (8-26) Creatinine 1.4 mg/dL (0.7-1.3) Estimated GFR (Cockcroft-Gault) 49.8 BUN/Creatinine Ratio 22 (6-20) Glucose Level 25 mg/dL (70-99) Calcium Level 8.5 mg/dL (8.5-10.1) Total Bilirubin 0.4 mg/dL (0.2-1.0) Aspartate Amino Transf (AST/SGOT) 31 U/L (15-37) Alanine Aminotransferase (ALT/SGPT) 20 U/L (16-63) Alkaline Phosphatase 61 U/L (46-116) Total Protein 6.6 g/dL (6.4-8.2) Albumin 2.3 g/dL (3.4-5.0) Albumin/Globulin Ratio 0.5 (1.0-1.7) Test 05/31/18 04:13 05/31/18 05:11 05/31/18 06:32 05/31/18 08:07 Glucose (Fingerstick) 31 mg/dL (70-99) 72 mg/dL (70-99) 48 mg/dL (70-99) 66 mg/dL (70-99) Test 05/31/18 11:14 Glucose (Fingerstick) 90 mg/dL (70-99) Results All relevant outside records, renal labs, imaging studies, telemetry/EKG's were reviewed. ELVI LICONA MD May 31, 2018 13:27
--- NOTE | 2018-06-04 11:34 | DS ---
DATE OF DISCHARGE: 05/31/2018 ADMISSION DIAGNOSES: Acute kidney injury, elevated troponin secondary to acute kidney injury, debility. DISCHARGE DIAGNOSIS: Resolving acute kidney injury. HOSPITAL COURSE: The patient is a pleasant 72-year-old male who presented with weakness and some vague chest pain. His troponin was slightly high at 0.3, but his creatinine was 2.1. We admitted him. We consulted Nephrology and Cardiology, gave him fluids. It was felt that his troponin was secondary to his renal failure. The patient was doing well. We discharged to [facility]. DISPOSITION: [facility]. ACTIVITY: As tolerated. DIET: Low sodium. MEDICATIONS: Please see the MRAD. TOTAL TIME: 39 minutes. ARANZA CHANEY DO DR: DANIKA/brandyn JOB#: [id number] / [id number]
== END 2018-05-31 15:50 | DRG 871 ==
LOC: ER 09:44 → 2 NORTH 12:20
PROVIDERS: ADMIT Family Medicine; ATTEND Family Medicine
DX: A41.9 Sepsis, unspecified organism (principal); I21.4 Non-ST elevation (NSTEMI) myocardial infarction; J15.9 Unspecified bacterial pneumonia; N17.9 Acute kidney failure, unspecified; I13.0 Hypertensive heart and chronic kidney disease with heart failure and stage 1 through stage 4 chronic kidney disease, or unspecified chronic kidney disease; J44.0 Chronic obstructive pulmonary disease with (acute) lower respiratory infection; E87.0 Hyperosmolality and hypernatremia; I25.10 Atherosclerotic heart disease of native coronary artery without angina pectoris; E78.5 Hyperlipidemia, unspecified; K21.9 Gastro-esophageal reflux disease without esophagitis; M19.90 Unspecified osteoarthritis, unspecified site; E11.22 Type 2 diabetes mellitus with diabetic chronic kidney disease; I50.9 Heart failure, unspecified; N20.0 Calculus of kidney; I25.5 Ischemic cardiomyopathy; F03.90 Unspecified dementia, unspecified severity, without behavioral disturbance, psychotic disturbance, mood disturbance, and anxiety; E11.51 Type 2 diabetes mellitus with diabetic peripheral angiopathy without gangrene; I65.29 Occlusion and stenosis of unspecified carotid artery; F17.201 Nicotine dependence, unspecified, in remission; N18.3 Chronic kidney disease, stage 3 (moderate); E87.6 Hypokalemia; E11.649 Type 2 diabetes mellitus with hypoglycemia without coma; I34.0 Nonrheumatic mitral (valve) insufficiency; I25.2 Old myocardial infarction; Z86.73 Personal history of transient ischemic attack (TIA), and cerebral infarction without residual deficits; Z95.0 Presence of cardiac pacemaker; Z98.84 Bariatric surgery status; Z89.511 Acquired absence of right leg below knee; Z88.0 Allergy status to penicillin; Z88.8 Allergy status to other drugs, medicaments and biological substances; Z95.1 Presence of aortocoronary bypass graft; Z90.49 Acquired absence of other specified parts of digestive tract; Z82.49 Family history of ischemic heart disease and other diseases of the circulatory system; Z82.0 Family history of epilepsy and other diseases of the nervous system
CPT/HCPCS: 36415; 71045; 74176; 76770; 80048; 80053; 80061; 81001; 82962; 83690; 83735; 83880; 84484; 85007; 85025; 90471; 90756; 93005; 93306; 96361; 96374; 96375; C9113; J0456; J1815; J1956; J2270; J2405; J7030; J7042; J7050; Q0144; 97110; 97116; 97530; 97535; 99285-25; Q2035

== ENCOUNTER 2018-07-16 21:49 | Emergency (ER) | payer MEDICARE, OTHER ==
[~2018-07-16] VITALS: Ht 165.1 cm; Wt 70.3 kg
[~2018-07-16 21:49] MED LIST changes: +AMLO5TAB7 PO; +GABA-585 PO; +PANT20TA2 PO
[2018-07-16 22:50] LABS: BILIRUBIN,URINE NEGATIVE (NEG); CLARITY,URINE CLEAR; COLOR,URINE YELLOW; NITRITE,URINE NEGATIVE (NEG); PROTEIN,URINE 100 mg/dL (NEG-TRACE); UROBILINOGEN,URINE 0.2 mg/dL (0.2 mg/dL)
[2018-07-16 22:54] LABS: BACTERIA,URINE 0 /HPF (0-FEW); RBC,URINE 0 /HPF (0-2); SQUAMOUS EPITHELIAL CELL,UR OCC /LPF; WBC,URINE 0 /HPF (0-4)
[2018-07-16 23:00] LABS: BASO # 0.1 x10^3/uL (0.0-0.2); BASO % 1 % (0-3); EOS # 0.2 x10^3/uL (0.0-0.7); EOS % 2 % (0-3); HEMATOCRIT 36.6 % (39.0-53.0); HEMOGLOBIN 12.7 g/dL (13.0-17.5); LYMPH % 14 % (24-48); MEAN CORPUSCULAR HEMOGLOBIN 32 pg (25-35); MEAN CORPUSCULAR HGB CONC 35 g/dL (31-37); MEAN CORPUSCULAR VOLUME 93 fL (79-100); MONO # 0.8 x10^3/uL (0.0-1.1); MONO % 10 % (0-9); NEUT # 5.3 x10^3uL (1.8-7.7); NEUT % 73 % (31-73); PLATELET COUNT 342 x10^3/uL (140-400); RED BLOOD COUNT 3.94 x10^6/uL (4.30-5.70); RED CELL DISTRIBUTION WIDTH 14.6 % (11.5-14.5); WHITE BLOOD COUNT 7.3 x10^3/uL (4.0-11.0)
[2018-07-16 23:06] LABS: CALCIUM 9.7 mg/dL (8.5-10.1); CREATININE 1.1 mg/dL (0.7-1.3); GFR 65.8; POTASSIUM 3.8 mmol/L (3.5-5.1)
[2018-07-16 23:12] LABS: ALBUMIN 3.6 g/dL (3.4-5.0); ALBUMIN/GLOBULIN RATIO 0.9 (1.0-1.7); TOTAL BILIRUBIN 0.2 mg/dL (0.2-1.0); TOTAL PROTEIN 7.6 g/dL (6.4-8.2)
--- NOTE | 2018-07-16 23:29 | PHYS DOC ---
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 This started a little bit before arrival. Patient was brought in by EMS who found his fingerstick blood sugar to be low. He was given oral glucose. This improved his blood sugar as well as his mentation. Patient denies any recent illness. Denies any recent changes in medication. Patient has a history of dementia and is at his baseline per family. Patient has a home health nurse who assists with preparation of the medication and is assisted with administering the medication by his brother. [] Review of Systems Review of Systems Constitutional: Denies fever or chills [] Eyes: Denies change in visual acuity, redness, or eye pain [] HENT: Denies nasal congestion or sore throat [] Respiratory: Denies cough or shortness of breath [] Cardiovascular: No chest pain or palpitations[] GI: Denies abdominal pain, nausea, vomiting, bloody stools or diarrhea [] : Denies dysuria or hematuria [] Musculoskeletal: Denies back pain or joint pain [] Integument: Denies rash or skin lesions [] Neurologic: Denies headache, focal weakness or sensory changes [] Endocrine: Denies polyuria or polydipsia [] All other systems were reviewed and found to be within normal limits, except as documented in this note. Allergies Allergies Allergies Coded Allergies Type Severity Reaction Last Updated Verified Penicillins Allergy Intermediate 09/16/16 Yes fenofibrate Allergy Intermediate 09/16/16 Yes niacin Allergy Intermediate 09/16/16 Yes simvastatin Allergy Intermediate 09/16/16 Yes Physical Exam Physical Exam Constitutional: Well developed, well nourished, no acute distress, non-toxic appearance. [] HENT: Normocephalic, atraumatic, bilateral external ears normal, oropharynx moist, no oral exudates, nose normal. [] Eyes: PERRLA, EOMI, conjunctiva normal, no discharge. [] Neck: Normal range of motion, no tenderness, supple, no stridor. [] Cardiovascular:Heart rate regular rhythm, no murmur [] Lungs & Thorax: Bilateral breath sounds clear to auscultation [] Abdomen: Bowel sounds normal, soft, no tenderness, no masses, no pulsatile masses. [] Skin: Warm, dry, no erythema, no rash. [] Back: No tenderness, no CVA tenderness. [] Extremities: No tenderness, no cyanosis, no clubbing, ROM intact, no edema. Patient has a right lower extremity amputation [] Neurologic: Alert and oriented X 2, normal motor function, normal sensory function, no focal deficits noted. [] Psychologic: Affect FLAT, judgement normal, mood normal her family. [] Current Patient Data Vital Signs Vital Signs Date Time Temp Pulse Resp B/P (MAP) Pulse Ox O2 Delivery O2 Flow Rate FiO2 07/17/18 01:30 64 18 160/71 (100) 98 07/16/18 21:50 97.8 Room Air 97.8 Lab Values Laboratory Tests Test 07/16/18 22:16 07/16/18 22:40 07/16/18 22:45 07/16/18 23:45 Glucose (Fingerstick) 112 mg/dL (70-99) H 143 mg/dL (70-99) H Urine Collection Type Unknown Urine Color Yellow Urine Clarity Clear Urine pH 6.0 Urine Specific [place] <=1.005 Urine Protein 100 mg/dL (NEG-TRACE) Urine Glucose (UA) Negative mg/dL (NEG) Urine Ketones (Stick) Negative mg/dL (NEG) Urine Blood Negative (NEG) Urine Nitrite Negative (NEG) Urine Bilirubin Negative (NEG) Urine Urobilinogen Dipstick 0.2 mg/dL (0.2 mg/dL) Urine Leukocyte Esterase Negative (NEG) Urine RBC 0 /HPF (0-2) Urine WBC 0 /HPF (0-4) Urine Squamous Epithelial Cells Occ /LPF Urine Bacteria 0 /HPF (0-FEW) White Blood Count 7.3 x10^3/uL (4.0-11.0) Red Blood Count 3.94 x10^6/uL (4.30-5.70) L Hemoglobin 12.7 g/dL (13.0-17.5) L Hematocrit 36.6 % (39.0-53.0) L Mean Corpuscular Volume 93 fL (79-100) Mean Corpuscular Hemoglobin 32 pg (25-35) Mean Corpuscular Hemoglobin Concent 35 g/dL (31-37) Red Cell Distribution Width 14.6 % (11.5-14.5) H Platelet Count 342 x10^3/uL (140-400) Neutrophils (%) (Auto) 73 % (31-73) Lymphocytes (%) (Auto) 14 % (24-48) L Monocytes (%) (Auto) 10 % (0-9) H Eosinophils (%) (Auto) 2 % (0-3) Basophils (%) (Auto) 1 % (0-3) Neutrophils # (Auto) 5.3 x10^3uL (1.8-7.7) Lymphocytes # (Auto) 1.0 x10^3/uL (1.0-4.8) Monocytes # (Auto) 0.8 x10^3/uL (0.0-1.1) Eosinophils # (Auto) 0.2 x10^3/uL (0.0-0.7) Basophils # (Auto) 0.1 x10^3/uL (0.0-0.2) Sodium Level 143 mmol/L (136-145) Potassium Level 3.8 mmol/L (3.5-5.1) Chloride Level 104 mmol/L (98-107) Carbon Dioxide Level 30 mmol/L (21-32) Anion Gap 9 (6-14) Blood Urea Nitrogen 16 mg/dL (8-26) Creatinine 1.1 mg/dL (0.7-1.3) Estimated GFR (Cockcroft-Gault) 65.8 BUN/Creatinine Ratio 15 (6-20) Glucose Level 101 mg/dL (70-99) H Calcium Level 9.7 mg/dL (8.5-10.1) Magnesium Level 2.0 mg/dL (1.8-2.4) Total Bilirubin 0.2 mg/dL (0.2-1.0) Aspartate Amino Transferase (AST) 16 U/L (15-37) Alanine Aminotransferase (ALT) 21 U/L (16-63) Alkaline Phosphatase 106 U/L (46-116) Ammonia 11 mcmol/L (11-34) Total Protein 7.6 g/dL (6.4-8.2) Albumin 3.6 g/dL (3.4-5.0) Albumin/Globulin Ratio 0.9 (1.0-1.7) L Test 07/17/18 00:40 07/17/18 01:48 Glucose (Fingerstick) 155 mg/dL (70-99) H 172 mg/dL (70-99) H Laboratory Tests 07/16/18 22:45 Laboratory Tests 07/16/18 22:45 EKG EKG [] Radiology/Procedures Radiology/Procedures [] Course & Med Decision Making Course & Med Decision Making Pertinent Labs and Imaging studies reviewed. (See chart for details) ED course: Patient arrived by EMS was transferred from [facility] bed without any complications. Patient tolerated exam well. Patient was fed to ensure that his glucose would stay up. He was watched in the emergency department over several hours after feeding to confirm that his glucose level did not decline too far. Medical decision making: There is no evidence of an infection. Uncertain as to why his glucose level decreased however it appears to be remaining stable. Patient was discharged with family after discussing the plan and all questions being answered.[] Dragon Disclaimer Dragon Disclaimer This electronic medical record was generated, in whole or in part, using a voice recognition dictation system. Departure Departure Impression: Primary Impression: Hypoglycemia Additional Impression: Type 2 diabetes mellitus Disposition: 01 HOME, SELF-CARE Condition: GOOD Referrals: JAZ MAO MD (PCP) Patient Instructions: Hypoglycemia (Low Blood Sugar), Type 2 Diabetes Mellitus , Adult Additional Instructions: Follow-up with your regular doctor in 2 days. Return to the ER if worsening confusion, unable to keep blood sugar up at 100 mg/dl or higher, or any other concerns. 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
[2018-07-17 01:30] VITALS: BP 160/71
== END 2018-07-17 02:25 | disposition home or self-care (01) ==
LOC: ER 21:49
DX: E11.649 Type 2 diabetes mellitus with hypoglycemia without coma (principal); R41.82 Altered mental status, unspecified; I10 Essential (primary) hypertension; Z79.4 Long term (current) use of insulin; Z86.73 Personal history of transient ischemic attack (TIA), and cerebral infarction without residual deficits; Z95.0 Presence of cardiac pacemaker; Z90.89 Acquired absence of other organs; Z88.0 Allergy status to penicillin; Z88.8 Allergy status to other drugs, medicaments and biological substances
CPT/HCPCS: 36415; 80053; 81001; 82140; 82962; 83735; 85025; 99284

== ENCOUNTER 2018-07-26 04:36 | Emergency (ER) | payer MEDICARE, OTHER ==
[~2018-07-26] VITALS: Ht 152.4 cm; Wt 70.3 kg
--- NOTE | 2018-07-26 04:59 | PHYS DOC ---
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 History is difficult to obtain from the patient due to his baseline history of dementia. He was seen by me approximately 10 days ago due to blood sugar issues and his mentation appears consistent with that time. He points to his left lower quadrant of the abdomen when asked to indicate where the pain is. He is unable to specify how long it has been present, the nature of the pain, or anything that P Leitz or provokes the discomfort. He denies any nausea, vomiting, or diarrhea. [] Review of Systems Review of Systems Limited secondary to dementia All other systems were reviewed and found to be within normal limits, except as documented in this note. Current Medications Current Medications Current Medications Medications (Trade) Dose Ordered Sig/Sylwia Start Time Stop Time Status Last Admin Dose Admin Hyoscyamine (Anaspaz) 0.125 mg ONCE ONCE 07/26/18 05:30 07/26/18 05:31 DC 07/26/18 05:50 0.125 MG Info (CONTRAST GIVEN -- Rx MONITORING) 1 each PRN DAILY PRN 07/26/18 05:15 07/28/18 05:14 Iohexol (Omnipaque 300 Mg/ml) 75 ml 1X ONCE 07/26/18 05:30 07/26/18 05:31 DC 07/26/18 05:59 75 ML Sodium Chloride 1,000 ml @ 500 mls/hr 1X ONCE 07/26/18 05:30 07/26/18 07:29 DC 07/26/18 05:50 500 MLS/HR Allergies Allergies Allergies Coded Allergies Type Severity Reaction Last Updated Verified Penicillins Allergy Intermediate 09/16/16 Yes fenofibrate Allergy Intermediate 09/16/16 Yes niacin Allergy Intermediate 09/16/16 Yes simvastatin Allergy Intermediate 09/16/16 Yes Physical Exam Physical Exam Constitutional: Well developed, well nourished, no acute distress, non-toxic appearance. [] HENT: Normocephalic, atraumatic, bilateral external ears normal, oropharynx moist, no oral exudates, nose normal. [] Eyes: PERRLA, EOMI, conjunctiva normal, no discharge. [] Neck: Normal range of motion, no tenderness, supple, no stridor. [] Cardiovascular:Heart rate regular rhythm, no murmur [] Lungs & Thorax: Bilateral breath sounds clear to auscultation [] Abdomen: Bowel sounds normal, soft, left lower quadrant tenderness, no masses, no pulsatile masses. [] Skin: Warm, dry, no erythema, no rash. [] Back: No tenderness, no CVA tenderness. [] Extremities: No tenderness, no cyanosis, no clubbing, ROM intact, no edema, right lower extremity amputation. [] Neurologic: Alert and oriented X 1, normal motor function, normal sensory function, no focal deficits noted. [] Psychologic: Affect flat, judgement unable to be evaluated, . [] Current Patient Data Vital Signs Vital Signs Date Time Temp Pulse Resp B/P (MAP) Pulse Ox O2 Delivery O2 Flow Rate FiO2 07/26/18 06:35 50 20 158/67 (97) 98 Room Air 07/26/18 04:36 97.3 97.3 Lab Values Laboratory Tests Test 07/26/18 05:35 07/26/18 07:12 White Blood Count 7.8 x10^3/uL (4.0-11.0) Red Blood Count 3.62 x10^6/uL (4.30-5.70) L Hemoglobin 11.4 g/dL (13.0-17.5) L Hematocrit 34.1 % (39.0-53.0) L Mean Corpuscular Volume 94 fL (79-100) Mean Corpuscular Hemoglobin 32 pg (25-35) Mean Corpuscular Hemoglobin Concent 34 g/dL (31-37) Red Cell Distribution Width 14.8 % (11.5-14.5) H Platelet Count 245 x10^3/uL (140-400) Neutrophils (%) (Auto) 82 % (31-73) H Lymphocytes (%) (Auto) 10 % (24-48) L Monocytes (%) (Auto) 7 % (0-9) Eosinophils (%) (Auto) 1 % (0-3) Basophils (%) (Auto) 1 % (0-3) Neutrophils # (Auto) 6.3 x10^3uL (1.8-7.7) Lymphocytes # (Auto) 0.8 x10^3/uL (1.0-4.8) L Monocytes # (Auto) 0.5 x10^3/uL (0.0-1.1) Eosinophils # (Auto) 0.1 x10^3/uL (0.0-0.7) Basophils # (Auto) 0.1 x10^3/uL (0.0-0.2) Prothrombin Time 12.7 SEC (11.7-14.0) Prothrombin Time INR 1.0 (0.8-1.1) Sodium Level 137 mmol/L (136-145) Potassium Level 4.5 mmol/L (3.5-5.1) Chloride Level 102 mmol/L (98-107) Carbon Dioxide Level 27 mmol/L (21-32) Anion Gap 8 (6-14) Blood Urea Nitrogen 24 mg/dL (8-26) Creatinine 1.4 mg/dL (0.7-1.3) H Estimated GFR (Cockcroft-Gault) 49.8 BUN/Creatinine Ratio 17 (6-20) Glucose Level 190 mg/dL (70-99) H Calcium Level 9.7 mg/dL (8.5-10.1) Total Bilirubin 0.3 mg/dL (0.2-1.0) Aspartate Amino Transferase (AST) 19 U/L (15-37) Alanine Aminotransferase (ALT) 21 U/L (16-63) Alkaline Phosphatase 93 U/L (46-116) Total Protein 7.6 g/dL (6.4-8.2) Albumin 3.6 g/dL (3.4-5.0) Albumin/Globulin Ratio 0.9 (1.0-1.7) L Lipase 336 U/L (73-393) Urine Collection Type Unknown Urine Color Yellow Urine Clarity Clear Urine pH 5.0 Urine Specific [place] 1.020 Urine Protein 30 mg/dL (NEG-TRACE) Urine Glucose (UA) 500 mg/dL (NEG) Urine Ketones (Stick) Negative mg/dL (NEG) Urine Blood Negative (NEG) Urine Nitrite Negative (NEG) Urine Bilirubin Negative (NEG) Urine Urobilinogen Dipstick 0.2 mg/dL (0.2 mg/dL) Urine Leukocyte Esterase Negative (NEG) Urine RBC Occ /HPF (0-2) Urine WBC 0 /HPF (0-4) Urine Squamous Epithelial Cells Few /LPF Urine Renal Epithelial Cells Occ /LPF Urine Amorphous Sediment Present /HPF Urine Bacteria Few /HPF (0-FEW) Urine Hyaline Casts Few /HPF Urine Mucus Slight /LPF Laboratory Tests 07/26/18 05:35 Laboratory Tests 07/26/18 05:35 EKG EKG [] Radiology/Procedures Radiology/Procedures FINDINGS: Lung bases are clear. Heart size is within normal limits. Hepatic dome is excluded. No suspicious hepatic lesion is identified. Spleen is not enlarged. And adrenal glands and pancreas are normal in appearance. Gallbladder surgically absent. No intrahepatic or extrahepatic biliary ductal dilatation. Abdominal aorta is normal in course and caliber with dense calcified and noncalcified atheromatous plaque. There is dense plaque involving the superior mesenteric artery. Splenic hilar vascular calcifications are identified. There are no pathologically enlarged lymph nodes in abdomen and pelvis. There is no free fluid or free intraperitoneal air. There is mild colonic diverticulosis without adjacent inflammatory changes. The appendix is not definitively visualized. However, no pericecal inflammatory changes are identified. There are no dilated loops of small or large bowel. No evidence for bowel obstruction or inflammation. The kidneys enhance symmetrically. There is no suspicious renal mass. There is no hydronephrosis. There are no suspected calculi within the kidneys, ureters or urinary bladder. Mild bladder wall thickening may be seen in setting of cystitis versus underdistention. Prostate and seminal vesicles are normal in appearance. Significant skin thickening is identified along the ventral abdominal wall, not significantly changed since the prior examination. No suspicious osseous abnormality is identified. IMPRESSION: 1. No evidence for bowel obstruction or inflammation. 2. No acute abnormality is identified in the abdomen and pelvis. 3. Similar appearance of dense focal band of skin thickening on the ventral abdominal wall. Course & Med Decision Making Course & Med Decision Making Pertinent Labs and Imaging studies reviewed. (See chart for details) 06:00: assumed care of this patient from Dr. Molina. Patient is re- examined. Overall benign abdominal examination. labs/CT scan pending. 07:30: Workup is complete. There are no acute findings to cause concern for an emergent cause for abdominal pain. I did examine the patient again. His abdomen remained soft and nontender to palpation. Plan is for discharge home. The patient is accompanied by his brother who will take him home today. They're encouraged to follow-up with her primary care doctor or return to the ER for any new or worsening symptoms. Eddi Disclaimer Eddi Disclaimer This electronic medical record was generated, in whole or in part, using a voice recognition dictation system. Departure Departure Disposition: 01 HOME, SELF-CARE Condition: IMPROVED Referrals: JAZ MAO MD (PCP) NATHALY MOLINA DO Jul 26, 2018 04:59 ANNETTE FLORES DO Jul 26, 2018 06:49
[2018-07-26] MEDS ORDERED: CONTRAST GIVEN. MC PRN (05:15)
[2018-07-26] MEDS ORDERED: IV NORMAL SALINE 1000ML BAG 1,000 ML IV ONE (05:30)
[2018-07-26] MEDS ORDERED: HYOSCYAMINE 0.125 MG TAB.RAPDIS PO ONE (05:30)
[2018-07-26] MEDS ORDERED: IOHEXOL 300 MG/ML 100ML VIAL. IV ONE (05:30)
[2018-07-26 05:55] LABS: BASO # 0.1 x10^3/uL (0.0-0.2); BASO % 1 % (0-3); EOS # 0.1 x10^3/uL (0.0-0.7); EOS % 1 % (0-3); HEMATOCRIT 34.1 % (39.0-53.0); HEMOGLOBIN 11.4 g/dL (13.0-17.5); LYMPH # 0.8 x10^3/uL (1.0-4.8); LYMPH % 10 % (24-48); MEAN CORPUSCULAR HEMOGLOBIN 32 pg (25-35); MEAN CORPUSCULAR HGB CONC 34 g/dL (31-37); MEAN CORPUSCULAR VOLUME 94 fL (79-100); MONO # 0.5 x10^3/uL (0.0-1.1); MONO % 7 % (0-9); NEUT # 6.3 x10^3uL (1.8-7.7); NEUT % 82 % (31-73); PLATELET COUNT 245 x10^3/uL (140-400); RED BLOOD COUNT 3.62 x10^6/uL (4.30-5.70); RED CELL DISTRIBUTION WIDTH 14.8 % (11.5-14.5); WHITE BLOOD COUNT 7.8 x10^3/uL (4.0-11.0)
[2018-07-26 06:03] LABS: CALCIUM 9.7 mg/dL (8.5-10.1); CREATININE 1.4 mg/dL (0.7-1.3); GFR 49.8; POTASSIUM 4.5 mmol/L (3.5-5.1)
[2018-07-26 06:04] LABS: PROTHROMBIN TIME PATIENT 12.7 SEC (11.7-14.0)
[2018-07-26 06:10] LABS: ALBUMIN 3.6 g/dL (3.4-5.0); ALBUMIN/GLOBULIN RATIO 0.9 (1.0-1.7); TOTAL BILIRUBIN 0.3 mg/dL (0.2-1.0); TOTAL PROTEIN 7.6 g/dL (6.4-8.2)
--- NOTE | 2018-07-26 06:29 | RAD ---
PQRS Compliance Statement: One or more of the following individualized dose reduction techniques were utilized for this examination: 1. Automated exposure control 2. Adjustment of the mA and/or kV according to patient size 3. Use of iterative reconstruction technique CT abdomen/pelvis with contrast 07/26/2018 5:53 AM INDICATION: Left lower quadrant abdominal pain COMPARISON: CT abdomen/pelvis May 28, 2018 TECHNIQUE: Multiple axial CT images of the abdomen and pelvis were obtained after the intravenous administration of 75 mL Omnipaque 300. Coronal and sagittal reformats are provided. FINDINGS: Lung bases are clear. Heart size is within normal limits. Hepatic dome is excluded. No suspicious hepatic lesion is identified. Spleen is not enlarged. And adrenal glands and pancreas are normal in appearance. Gallbladder surgically absent. No intrahepatic or extrahepatic biliary ductal dilatation. Abdominal aorta is normal in course and caliber with dense calcified and noncalcified atheromatous plaque. There is dense plaque involving the superior mesenteric artery. Splenic hilar vascular calcifications are identified. There are no pathologically enlarged lymph nodes in abdomen and pelvis. There is no free fluid or free intraperitoneal air. There is mild colonic diverticulosis without adjacent inflammatory changes. The appendix is not definitively visualized. However, no pericecal inflammatory changes are identified. There are no dilated loops of small or large bowel. No evidence for bowel obstruction or inflammation. The kidneys enhance symmetrically. There is no suspicious renal mass. There is no hydronephrosis. There are no suspected calculi within the kidneys, ureters or urinary bladder. Mild bladder wall thickening may be seen in setting of cystitis versus underdistention. Prostate and seminal vesicles are normal in appearance. Significant skin thickening is identified along the ventral abdominal wall, not significantly changed since the prior examination. No suspicious osseous abnormality is identified. IMPRESSION: 1. No evidence for bowel obstruction or inflammation. 2. No acute abnormality is identified in the abdomen and pelvis. 3. Similar appearance of dense focal band of skin thickening on the ventral abdominal wall. Electronically signed by: Manisha Diaz MD (07/26/2018 6:26 AM) [facility]
[2018-07-26 07:33] LABS: BILIRUBIN,URINE NEGATIVE (NEG); CLARITY,URINE CLEAR; COLOR,URINE YELLOW; NITRITE,URINE NEGATIVE (NEG); PROTEIN,URINE 30 mg/dL (NEG-TRACE); UROBILINOGEN,URINE 0.2 mg/dL (0.2 mg/dL)
[2018-07-26 07:35] VITALS: BP 118/58
[2018-07-26 07:39] LABS: HYALINE CASTS, URINE FEW /HPF; SQUAMOUS EPITHELIAL CELL,UR FEW /LPF
[2018-07-26 07:40] LABS: AMORPHOUS SEDIMENT,UR PRESENT /HPF; BACTERIA,URINE FEW /HPF (0-FEW); RBC,URINE OCC /HPF (0-2); WBC,URINE 0 /HPF (0-4)
== END 2018-07-26 07:53 | disposition home or self-care (01) ==
LOC: ER 04:36
DX: R10.32 Left lower quadrant pain (principal); F03.90 Unspecified dementia, unspecified severity, without behavioral disturbance, psychotic disturbance, mood disturbance, and anxiety; E11.9 Type 2 diabetes mellitus without complications; I10 Essential (primary) hypertension; Z86.73 Personal history of transient ischemic attack (TIA), and cerebral infarction without residual deficits; Z90.89 Acquired absence of other organs; Z98.84 Bariatric surgery status; Z95.810 Presence of automatic (implantable) cardiac defibrillator; Z88.0 Allergy status to penicillin; Z88.8 Allergy status to other drugs, medicaments and biological substances
CPT/HCPCS: 36415; 51701; 74177; 80053; 81001; 83690; 85025; 85610; 99284; J7030; Q9967

== ENCOUNTER → 2018-08-23 | Outpatient (CLI) | payer MEDICARE, OTHER ==
[2018-07-26 07:35] VITALS: BP 118/58
[~2018-08-23] MED LIST changes: -HYDR-2758 PO; +HYDR-2761 PO
--- NOTE | 2018-08-23 18:13 | CARD ---
MR#: [id number] Date of Study: 08/23/2018 Ordering Physician: JD MONGE, Referring Physician: JD MONGE Tech: Winifred Cunningham RDCS APPROVED REPORT EXAM: Two-dimensional and M-mode echocardiogram with Doppler and color Doppler. Other Information Quality : Technically LimitedHR: 60bpm Rhythm : NSR INDICATION Cardiomyopathy 2D DIMENSIONS RVDd3.2 (2.9-3.5cm)Left Atrium(2D)3.4 (1.6-4.0cm) IVSd1.2 (0.7-1.1cm)Aortic Root(2D)3.0 (2.0-3.7cm) LVDd4.9 (3.9-5.9cm)LVOT Diameter1.9 (1.8-2.4cm) PWd1.3 (0.7-1.1cm)IVSs1.7 (0.8-1.2cm) LVDs3.8 (2.5-4.0cm)FS (%) 21.9 % PWs1.5 (0.8-1.2cm)SV50.2 ml M-Mode DIMENSIONS Left Atrium(MM)3.30 (2.5-4.0cm)Aortic Root3.57 (2.2-3.7cm) Aortic Valve AoV Peak Rahul.99.0cm/sAoV VTI18.1cm AO Peak GR.3.9mmHgLVOT Peak Rahul.72.4cm/s LVOT VTI 16.18cmAO Mean GR.2mmHg HITESH (VMAX)1.78mn7EKX (VTI)2.57cm2 Mitral Valve MV E Oinvlxez66.8cm/sMV DECEL [id number] MV A Mkhkrnsn04.4cm/sMV FHU23rv E/A Ratio0.7MVA (PHT)3.00cm2 TDI E/Lateral E'7.4E/Medial E'13.6 Pulmonary Valve PV Peak Vgnxyzop78.4cm/sPV Peak Grad.4mmHg Tricuspid Valve TR P. Pcdczpzx820qh/sRAP [id number] TR Peak Gr.[id number] LEFT VENTRICLE The left ventricle is normal size. There is mild concentric left ventricular hypertrophy. The ejectio n fraction is moderately impaired. The Ejection Fraction is 35-40%. There is global hypokinesis of th e left ventricle. Transmitral Doppler flow pattern is abnormal. RIGHT VENTRICLE The right ventricle is normal size. There is normal right ventricular wall thickness. The right ventr icular systolic function is normal. Device leads noted in RV/RA. ATRIA The left atrium size is normal. The right atrium size is normal. The interatrial septum is intact wit h no evidence for an atrial septal defect or patent foramen ovale as noted on 2-D or Doppler imaging. AORTIC VALVE The aortic valve is mildly calcified. The aortic valve is trileaflet. Doppler and Color Flow revealed trace aortic regurgitation. There is no significant aortic valvular stenosis. MITRAL VALVE The mitral valve is normal in structure and function. There is no evidence of mitral valve prolapse. There is no mitral valve stenosis. Doppler and Color-flow revealed trace mitral regurgitation. TRICUSPID VALVE The tricuspid valve is normal in structure and function. Doppler and Color Flow revealed trace tricus pid regurgitation. The PA pressure was estimated at 19 mmHg. There is no tricuspid valve prolapse or vegetation. There is no tricuspid valve stenosis. PULMONIC VALVE Pulmonic valve not well visualized. GREAT VESSELS The aortic root is normal in size. The ascending aorta is normal in size. The IVC is normal in size a nd collapses >50% with inspiration. PERICARDIAL EFFUSION There is no evidence of significant pericardial effusion. Critical Notification Critical Value: No <Conclusion> The left ventricle is normal size. The ejection fraction is moderately impaired. The Ejection Fraction is 35-40%. There is global hypokinesis of the left ventricle. There is mild concentric left ventricular hypertrophy. Device leads noted in RV/RA. There is no significant aortic valvular stenosis. Doppler and Color Flow revealed trace aortic regurgitation. Doppler and Color-flow revealed trace mitral regurgitation. Doppler and Color Flow revealed trace tricuspid regurgitation. The PA pressure was estimated at 19 mmHg. Signed by : Roberto Julio MD Electronically Approved : 08/23/2018 18:12:26
== END | disposition home or self-care (01) ==
LOC: ECHO 12:39
PROVIDERS: ATTEND Internal Medicine Cardiovascular Disease
DX: I25.5 Ischemic cardiomyopathy (principal); I51.7 Cardiomegaly
CPT/HCPCS: 93306